=== PATIENT | male | born 1935 | race Caucasian/White ===

== ENCOUNTER → 2017-12-15 | Outpatient (CLI) | payer MEDICAID ==
[~2017-12-15] MED LIST: ASPI325T4; ATOR40TA PO; ATOR80TA; CATHETER FLUSH 10 ML SYR IV PRN; CLOP75TA; CYCL10TA9 PO; DOXY25TA43 PO; FLUT60LO2 TP; HYDR-700; LANS30CA; LISI-556; LSRT50T PO; LVT.05T; MTP25TSR; MTP25TSR PO; MULT-608; NAPR220C11 PO; OMEG1CAP51 PO; PRAS10TA6; PRD20T PO; REGADENOSON 0.4 MG/5 ML SYR (LEXISCAN) IV ONE; TRIA1CAP4
--- NOTE | 2017-12-15 16:10 | STRESS TEST ---
DATE OF SERVICE: 12/06/2017 LEXISCAN MYOVIEW STRESS TEST REPORT REFERRING PHYSICIAN: Edu Keene M.D. Baseline heart rate is 66. Baseline blood pressure is 161/72. Baseline EKG sinus rhythm with occasional APCs. SUMMARY: The patient was injected with 10.52 mCi of technetium-99 Myoview and the resting images were obtained. Then, the patient received 0.4 mg of Lexiscan followed by 30.7 mCi of technetium-99 Myoview. Throughout the test, there were no EKG changes. The resting and stress images were reviewed and compared in the short axis, horizontal long axis, and vertical long axis views. Review of the images showed diaphragmatic attenuation with decreased uptake at the mid to apical inferior wall, which appeared to be fixed, no significant ischemia was noted. SSS is 8, SDS 0, TID value 0.86. On the gated images, the left ventricle is small in size with good contractility. Calculated ejection fraction is 83%. CONCLUSION: 1. The patient tolerated Lexiscan well. 2. Diaphragmatic attenuation with fixed defect at the mid to apical inferior wall with no significant ischemia. 3. Small left ventricular size with good contractility. Calculated ejection fraction is 83%, inferior wall is jessica normally. Job ID: [id number] DocumentID: [id number] Dictated Date: 12/15/2017 11:28:21 Commercial Kitchen Service Technician Date: 12/15/2017 16:09:46 Dictated By: GHULAM PARKER MD
== END ==
LOC: CARD 07:05
PROVIDERS: ATTEND Internal Medicine Cardiovascular Disease
DX: I25.10 Atherosclerotic heart disease of native coronary artery without angina pectoris (principal); I10 Essential (primary) hypertension; E78.5 Hyperlipidemia, unspecified; E03.9 Hypothyroidism, unspecified; Z72.0 Tobacco use
CPT/HCPCS: 78452; 93017

== ENCOUNTER → 2018-08-06 | Outpatient (CLI) | payer MEDICAID ==
[~2018-08-06] MED LIST changes: -CATHETER FLUSH 10 ML SYR IV PRN; -REGADENOSON 0.4 MG/5 ML SYR (LEXISCAN) IV ONE
== END ==
LOC: WOUNDCARE 11:54
PROVIDERS: ATTEND Orthopaedic Surgery Hand Surgery
DX: L97.512 Non-pressure chronic ulcer of other part of right foot with fat layer exposed (principal); L97.312 Non-pressure chronic ulcer of right ankle with fat layer exposed; I73.9 Peripheral vascular disease, unspecified; I87.2 Venous insufficiency (chronic) (peripheral); G60.9 Hereditary and idiopathic neuropathy, unspecified
CPT/HCPCS: 11042; 97597

== ENCOUNTER → 2018-08-19 | Outpatient (CLI) | payer MEDICAID ==
[~2018-08-19] MED LIST changes: +ATOR20TA66 PO; +HEParin DRIP 25000 UNIT/500ML 500 ML IV ONE; +L GA1CAP2 PO; +LIDOCAINE 1% INJ 20 ML 20 ML VIAL ONE; +LIDOCAINE 2% 20 ML (XYLOCAINE) VIAL ONE; +MV-M1TAB20 PO; +OMEP40CA36 PO; +TAMS0.4C2 PO
== END ==
LOC: WOUNDCARE 13:22
PROVIDERS: ATTEND Surgery
DX: I70.234 Atherosclerosis of native arteries of right leg with ulceration of heel and midfoot (principal); L97.512 Non-pressure chronic ulcer of other part of right foot with fat layer exposed; I87.323 Chronic venous hypertension (idiopathic) with inflammation of bilateral lower extremity; G60.9 Hereditary and idiopathic neuropathy, unspecified
CPT/HCPCS: 99212

== ENCOUNTER 2018-08-21 08:45 | Inpatient (IN) | payer MEDICAID ==
[2018-08-21] VITALS (26 sets, daily range): BP systolic 75–181; BP diastolic 36–130
[~2018-08-21] VITALS: Ht 177.8 cm; Wt 67.4 kg
[~2018-08-21 08:45] MED LIST changes: -ATOR20TA66 PO; -HEParin DRIP 25000 UNIT/500ML 500 ML IV ONE; -L GA1CAP2 PO; -LIDOCAINE 1% INJ 20 ML 20 ML VIAL ONE; -LIDOCAINE 2% 20 ML (XYLOCAINE) VIAL ONE; -MV-M1TAB20 PO; -OMEP40CA36 PO; -TAMS0.4C2 PO
[2018-08-21] MEDS ORDERED: HEParin (CATH LAB) 2,000 ML IV ONE ×2 (08:48→15:59)
[2018-08-21] MEDS ORDERED: LIDOCAINE 1% INJ 20 ML 20 ML VIAL ONE (08:48)
[2018-08-21] MEDS ORDERED: NS IV 1000 ML 1,000 ML ONE (08:48)
[2018-08-21] MEDS ORDERED: NS IV 1000 ML 1,000 ML IV SCH ×2 (08:51→12:11)
[2018-08-21 09:25] LABS: HEMOGLOBIN 11.1 G/DL (13.3-17.7); MEAN PLATELET VOLUME 11.6 FL (7.4-10.4); RED BLOOD COUNT 3.89 10^6/uL (4.35-5.85); RED CELL DISTRIBUTION WIDTH 14.2 % (10.0-14.5); WHITE BLOOD COUNT 7.1 10^3/uL (4.3-11.0)
[2018-08-21 09:37] LABS: PROTHROMBIN TIME PATIENT 12.6 SEC (12.2-14.7)
--- NOTE | 2018-08-21 09:39 | Diagnostic Imaging Report ---
EXAM: CHEST 1 VIEW, AP/PA ONLY. INDICATION: HX OF TOBACCO, ABN CLARI. COMPARISON: Chest radiographs of 11/14/2010. FINDINGS: Cardiomegaly with normal central pulmonary vascularity. Hyperinflation. Small interstitial and airspace opacity in the left lung base. No pleural effusion or pneumothorax. No acute osseous findings. IMPRESSION: 1. COPD. 2. Cardiomegaly with normal central pulmonary vascularity. 3. Interstitial and airspace opacity in the left lung base is nonspecific and could represent atelectasis or infiltrate. Recommend followup to resolution. Dictated by: Dictated on workstation # [id number]
[2018-08-21 09:43] LABS: ALBUMIN 3.7 GM/DL (3.2-4.5); BILIRUBIN,TOTAL 0.4 MG/DL (0.1-1.0); CALCIUM 9.4 MG/DL (8.5-10.1); CREATININE SERUM 1.49 MG/DL (0.60-1.30); POTASSIUM 4.4 MMOL/L (3.6-5.0)
[2018-08-21] MEDS ORDERED: MV-M1TAB20 PO (09:53)
[2018-08-21] MEDS ORDERED: ATOR20TA66 PO (09:53)
[2018-08-21] MEDS ORDERED: TAMS0.4C2 PO (09:53)
[2018-08-21] MEDS ORDERED: OMEP40CA36 PO (09:53)
[2018-08-21] MEDS ORDERED: L GA1CAP2 PO (09:53)
[2018-08-21] MEDS ORDERED: MIDAZOLAM 5 MG/5 ML (VERSED) VIAL ONE (10:02)
[2018-08-21] MEDS ORDERED: fentaNYL INJECTION 100 MCG/2 ML AMP ONE ×2 (10:02→14:30)
[2018-08-21] MEDS ORDERED: HEParin 1000 UNIT/ML (10ML VIAL) FOR BOLUS ONE (10:02)
--- NOTE | 2018-08-21 10:05 | Cardiac Procedure Note-CS/ASA ---
Pre-Procedure Note Pre-Op Procedure Note H&P Reviewed The H&P was reviewed, patient examined and no changes noted. Date H&P Reviewed: Aug 21, 2018 Time H&P Reviewed: 10:05 Conscious Sedation Pre-Proced Time 10:05 ASA Score 3 For ASA 3 and 4: Consider anesthesia and medical clearance. Also, for patients with a history of failed moderate sedation consider anesthesia. Airway Lungs Heart ASA score ASA 1: a normal healthy patient ASA 2: a patient with a mild systemic disease (mid diabetes, controlled hypertension, obesity x ASA 3: a patient with a severe systemic disease that limits activity (angina , COPD, prior Myocardial infarction) ASA 4: a patient with an incapacitating disease that is a constant threat to life (CHF, renal failure) ASA 5: a moribund patient not expected to survive 24 hrs. (ruptured aneurysm) ASA 6: a declared brain patient whose organs are being harvested. For emergent operations, add the letter E after the classification Mallampati Classification Grade 3 Sedation Plan Analgesia, Amnesia, Plan communicated to team members, Discussed options with patient/fam, Discussed risks with patient/fam The patient is an appropriate candidate to undergo the planned procedure, sedation, and anesthesia. The patient immediately re-assessed prior to indication. GHULAM PARKER MD Aug 21, 2018 10:05
[2018-08-21] MEDS ORDERED: NITRO DRIP 25000 MCG/D5W 250 ML IV ONE (11:24)
[2018-08-21] MEDS ORDERED: CLOPIDOGREL 300 MG (PLAVIX) TABLET PO ONE (12:10)
[2018-08-21] MEDS ORDERED: ASPIRIN 325 MG (5 GR) TABLET ONE (12:10)
[2018-08-21] MEDS ORDERED: PATIENT MAY USE OWN MEDS, ALL PO SCH ×2 (12:15→17:30)
--- NOTE | 2018-08-21 12:22 | Peripheral Report ---
Peripheral Report Physician (s)/Wire Preparation Worker (s) Physician GHULAM PARKER MD Pre-Procedure Diagnosis Pre-Procedure Diagnosis: nonhealing foot ulcer Post-Procedure Note Procedure Start Date: Aug 21, 2018 Name of Procedure: bilateral lower extremity runoff Third order Additional imaging at the level of the tibioperoneal trunk LENS POLISHER HAND to the right posterior tibial artery LENS POLISHER HAND to the right peroneal artery Stent deployment to the right SFA Findings/Procedure Note PROCEDURE NOTE: After explaining the procedure to the patient, all pros and cons were explained , all questions were answered. The patient signed the consent and then he was placed on the cardiac catheterization laboratory. The patient was placed on the cardiac catheterization laboratory. Groin was prepped SL fashion local anesthesia was used. Sheath placed in the left femoral artery. Rim catheter was used for injection to evaluate the aortic bifurcation, long stork wire was advanced then a straight catheter was advanced to the right common femoral artery and runoff to the right lower except he was done then it was advanced to the popliteal artery and angiogram was done, at that point patient was given a total of 6000 units of heparin and then the sheath was exchanged into 55 cm 6 Iraqi sheath, I readvanced the straight catheter to the tibioperoneal trunk, angiogram showed subtotal occlusion of the posterior tibial and peroneal artery and total occlusion of the anterior tibial artery. Patient has a lesion on his heel. I proceeded with balloon angioplasty using 3 x 40 balloon over 0.018 command wire multiple inflations were done then the wire was redirected into the peroneal artery and advanced in the peroneal artery and balloon angioplasty with the same balloon was done, angiogram showed good results, and advancement of the straight catheter, there was significant gradient across the SFA with multiple lesion and heavy calcification. I used 6 time 100 lm with multiple inflation, angiographic showed improvement multiple segment, there was heavy calcification recoiling and dissection of the mid SFA, I decided to proceed with stenting using SUPERA 6 x150, postdilated with a 6.0 balloon with excellent results. At the end of the procedure the sheath was exchanged again into short 6 Iraqi sheath and runoff to the left lower extremity was done. FINDINGS: Right lower extremity: heavily calcified SFA with multiple segment of severe stenosis successful balloon angioplasty and stent deployment using SUPERA 6 x 150 with excellent results, subtotal occlusion of the posterior tibial artery with balloon angioplasty using 3 x 40 balloon with excellent result, the same balloon was used for the peroneal artery that was having severe ostial stenosis with significant improvement, some recoiling was noted. Total occlusion of the anterior tibial artery that was reconstructed by collateral. I did not intervene on that artery. Left lower extremity: heavily calcified artery with moderate stenosis at the midportion down to the trifurcation, there was brisk flow, I did not want to repeat the angiogram at that point to limit exposure to contrast CONCLUSIONS: 1. Severe multiple segment stenosis in the right SFA with heavy calcification balloon angioplasty then deployment of SUPERA 6 x 150 with excellent results 2. Subtotal occlusion of the ostial of the right posterior tibial artery on the right with successful balloon angioplasty using 3 x 40 balloon 3. Severe stenosis at the ostial of the right peroneal artery with successful balloon angioplasty using 3 x 40 balloon 4. Total occlusion of the anterior tibial artery that was not intervened on 5. Calcified left SFA with moderate stenosis at multiple segment DISCUSSION AND RECOMMENDATIONS: I will continue maximizing medical therapy at this time Anesthesia Type: Conscious Sedation Estimated blood loss (mL): 35 ml Contrast Amount: 82 ml Total Radiation Dose: 137 mGy Post-Procedure Diagnosis Post-operative diagnosis: Nonhealing foot ulcer Peripheral arterial disease Coronary artery disease Hypertension Hyperlipidemia GHULAM PARKER MD Aug 21, 2018 12:22
--- NOTE | 2018-08-21 12:38 | NUR ---
Pt to floor, report received from pathology laboratory technologist nurses. Orders from pathology laboratory technologist RN's Gabo, to pull sheath in 1 hour. Pt sleeping and showing signs of sleep apnea with oxygen sats 89%. 2L oxygen applied via nasal cannula. Sats 98%
[2018-08-21] MEDS ORDERED: ATROPINE INJ 0.4 MG/ML SDV ONE (13:22)
[2018-08-21] MEDS ORDERED: DOPamine DRIP 250 ML IV ONE (15:05)
[2018-08-21] MEDS ORDERED: NS IV 500 ML 500 ML ONE (15:11)
[2018-08-21] MEDS ORDERED: NS 1000 ML IV BAG IV ONE (15:35)
[2018-08-21] MEDS ORDERED: ATROPINE INJECTION 1 MG/10 ML SYR (ABBOTT) INJ ONE (15:35)
[2018-08-21] MEDS: NS IV 1000 ML 1,000 ML IV SCH (16:08)
--- NOTE | 2018-08-21 16:19 | Diagnostic Imaging Report ---
EXAM: Ultrasound of the left lower extremity. DATE: August 21, 2018. INDICATION: 83-year-old male, evaluation for bleeding status post catheterization. COMPARISON: None. FINDINGS: There is an ill-defined hypoechoic masslike area at the area of interest in the left inguinal region which is nonspecific but may relate to hematoma. Limited images were provided. Waveforms within the vessels were not provided. There does not appear to be specific evaluation for pseudoaneurysm. IMPRESSION: 1. Ill-defined hypoechoic masslike area at the area of clinical concern which may relate to hematoma. Clinical correlation is recommended. 2. Limited images were provided. No waveforms within the vessels or dedicated assessment for pseudoaneurysm. Dictated by: Dictated on workstation # [id number]
--- NOTE | 2018-08-21 16:38 | NUR ---
TIME LINE NOTE: 1407-groin soft and no hematoma present 1408-sheath pulled and pressure held. Pt vitals stable and within normal limits 1415-This RN noticed that pt abdomen above sheath site on left side, feeling hard and pt complains of pain, lab systems analyst called. Pressure maintained by this RN 1419-Angelica catheterization laboratory technician, to the floor and stated he was not sure if that was a hematoma or pt's hernia, informed this RN to call Dr. Chavira. Pressure maintained by this RN. Pt leg blueish in color to verify pressure is adequate. 1430-Dr. Chavira in room, stated that he did not feel this was a bleed at this time, verbal order for this RN to give 25mg fentanyl at this time. Pressure Maintained by this RN 1435-Fentenyl 25mg given at this time. Pt vitals still stable and within normal limits, pressure maintained by this RN 1453-Called lab systems analyst to see if this RN could order an Ultrasound as pt bp droppede from baseline but still within normal limits. Orders for ultrasound obtained. Pressure maintained by this RN. 1502-Dr. Chavira to floor to check pt, pt's BP dropping at this time, 1 Liter NS started wide open at this time. Dr. Chavira holding pressure with this RN simultaneously. 1510-Dopamine 5mcg started at this time per Dr. Chavira order. kodak Dominguez, here to hold pressure for this RN. Dr. Chavira verbal order to obtain 2 units unmatched blood to be given now wide open. 1518-1st unit of O+ blood hung at this time wide open. RITA Dominguez, maintaining pressure. 1525-Dr. chavira holding pressure with RITA Dominguez, simultaneously. 1527-Dopamine off per Dr. Chavira as pressure was increasing to normal limits 1530-Dr. chavira released pressure, RITA dominguez, still holding pressure 1531-.3 atropine given iv for pt vagled with a HR in the 30's. HR almost immediately increased to Normal limits in the 90's. 1532-1st unit of blood done. 1533- 2nd unit of O+ blood hung at this time. Vitals stabilizing. 1545-Vitals normalizing, pt states he feels better, fluids turned down to 200 ml/hr at this time. 1547-Yadira lab systems analyst rn, here to relieve angleica and hold pressure. Yadira felt that the pt hematoma was harder than when she origionally checked upon entering room. Dr. Chavira felt at this time and felt it was worse as well. BP decreasing again at this time. 1548-US in room and confirmed hematoma. Verbal orders for 2 more units of blood to be hung. Lab called at this time. Dr. chavira stated that they would take pt back to lab systems analyst to try to stop the bleed. Fluids turned back to wide open 1550-Dr. Chavira holding pressure again at this time simultaneously with RITA May. 1555-2nd unit of blood done. Yadira maintaining pressure 1605- to lab systems analyst with Yadira on bed to maintain pressure. Fluids still running wide open. This RN, Dr. Chavira and Eunice, lab systems analyst with pt during transfer as well. 1607-arrived to lab systems analyst, pt transferred to lab systems analyst table with Yadira maintaining pressure throughout transfer. 1610-2nd bag of fluids hung running wide open. 1615-3rd unit of A+ blood hung at this time. 1620-This RN reported off to RITA May and returned to ICU
--- NOTE | 2018-08-21 17:30 | Peripheral Report ---
Peripheral Report Physician (s)/Collection Analyst (s) Physician GHULAM PARKER MD Pre-Procedure Diagnosis Pre-Procedure Diagnosis: nonhealing foot ulcer Post-Procedure Note Procedure Start Date: Aug 21, 2018 Name of Procedure: balloon angioplasty to the left iliac/common femoral Findings/Procedure Note PROCEDURE NOTE: 83 years old gentleman underwent complex intervention on the right lower extremity using left groin access. Sheath insertion was relatively high, upon pulling the sheath on the floor and holding manual pressure patient developed large hematoma and became hypotensive. Received 4 units of blood, manual pressure applied for over an hour and continue to worsen, bedside ultrasound was done which showed large hematoma. I decided to take him back to the catheter lab with right groin access and try to see the femoral artery from inside. Patient was placed on the cardiac catheterization laboratory, right groin was prepped in a sterile fashion, local anesthesia applied and 7 Irish sheath was placed in the right femoral artery using the rim catheter I did angiogram to the left iliac and femoral artery and advanced Glidewire due to the difficulty in advancing stork wire, over the glide wire I was able to advance a straight catheter to the SFA then exchanged the Glidewire into a stork wire then try to put a longer sheath without success subsequently I proceeded with balloon dilatation at the site of the previous insertion using 8x40 inflated for 5 minutes then released for 2 minutes then inflated again for another 5 minutes, placed a straight catheter back in the iliac artery and did angiogram did not show any extravasation of contrast. At that point I left the sheath for 10 minutes and checked the pressure and reintroduce the straight catheter and did angiogram again showing no extravasation of contrast, blood pressure continued to be stable. Then the wire was removed and the straight catheter was removed and I left the 7 Irish sheath for another 10 minutes in the groin for a total of 30 minutes with continuous monitoring of the arterial line without any change in blood pressure or size of the hematoma on the left groin subsequently I decided to remove the 7 Irish sheath and deployed Mynx device. FINDINGS: 1. Successful balloon angioplasty to the left iliac/common femoral artery and resolution of the retroperitoneal bleed CONCLUSIONS: I will continue to monitor in the intensive care unit. Monitor H&H Anesthesia Type: Conscious Sedation Estimated blood loss (mL): 10 ml Contrast Amount: 21 ml Total Radiation Dose: 269 mGy Post-Procedure Diagnosis Post-operative diagnosis: Peripheral arterial disease Retroperitoneal bleed GHULAM PARKER MD Aug 21, 2018 17:30
--- NOTE | 2018-08-21 18:00 | NUR ---
Pt returned from lab assistant. Right groin site soft with dressing dry and intact. L groin site not bleeding at this time. Previous hematoma much smaller with only a small area of the left abdomen remaining hard. Will continue to monitor pt closely.
--- NOTE | 2018-08-21 19:25 | NUR ---
Report given to RITA Mensah. Makenna, at bedside with this RN to check groins. Pt remains the same as when arriving to the floor at 1800. No change in pt cath sites and pt shows no new signs of bleeding. Vitals stable and within normal limits.
[2018-08-21 20:11] LABS: BASOPHILS % (AUTO) 0 % (0-10); EOSINOPHILS % (AUTO) 0 % (0-10); HEMATOCRIT 41 % (40-54); HEMOGLOBIN 13.5 G/DL (13.3-17.7); LYMPHOCYTES # (AUTO) 0.6 X 10^3 (1.0-4.0); LYMPHOCYTES % (AUTO) 6 % (12-44); MEAN CORPUSCULAR HEMOGLOBIN 30 PG (25-34); MEAN CORPUSCULAR HGB CONC 33 G/DL (32-36); MEAN CORPUSCULAR VOLUME 89 FL (80-99); MEAN PLATELET VOLUME 11.7 FL (7.4-10.4); MONOCYTES # (AUTO) 1.1 X 10^3 (0.0-1.0); MONOCYTES % (AUTO) 11 % (0-12); NEUTROPHILS # (AUTO) 8.6 X 10^3 (1.8-7.8); NEUTROPHILS % (AUTO) 83 % (42-75); PLATELET COUNT 151 10^3/uL (130-400); RED BLOOD COUNT 4.57 10^6/uL (4.35-5.85); RED CELL DISTRIBUTION WIDTH 14.8 % (10.0-14.5); WHITE BLOOD COUNT 10.4 10^3/uL (4.3-11.0)
[2018-08-21 20:39] LABS: BAND NEUTROPHILS 16 %; BASOPHILS % (MANUAL) 1 %; EOSINOPHILS % (MANUAL) 1 %; LYMPHOCYTES % (MANUAL) 4 %; MONOCYTES % (MANUAL) 6 %; NEUTROPHILS % (MANUAL) 72 %; RBC MORPH NORMAL
--- NOTE | 2018-08-21 20:54 | NUR ---
This RN called Dr. Chavira with lab results as requested. Hgb 13.5, Hct 41, Platelets 151. Orders received.
[2018-08-21] MEDS ORDERED: TEMAZEPAM 7.5 MG CAP (RESTORIL) PO ONE ×2 (21:00→22:00)
[2018-08-22] VITALS (22 sets, daily range): BP systolic 114–160; BP diastolic 53–86
[2018-08-22 03:50] LABS: BASOPHILS % (AUTO) 0 % (0-10); EOSINOPHILS % (AUTO) 0 % (0-10); HEMATOCRIT 36 % (40-54); HEMOGLOBIN 11.6 G/DL (13.3-17.7); LYMPHOCYTES # (AUTO) 0.4 X 10^3 (1.0-4.0); LYMPHOCYTES % (AUTO) 5 % (12-44); MEAN CORPUSCULAR HEMOGLOBIN 29 PG (25-34); MEAN CORPUSCULAR HGB CONC 33 G/DL (32-36); MEAN CORPUSCULAR VOLUME 88 FL (80-99); MEAN PLATELET VOLUME 11.7 FL (7.4-10.4); MONOCYTES # (AUTO) 1.1 X 10^3 (0.0-1.0); MONOCYTES % (AUTO) 13 % (0-12); NEUTROPHILS # (AUTO) 6.8 X 10^3 (1.8-7.8); NEUTROPHILS % (AUTO) 81 % (42-75); PLATELET COUNT 157 10^3/uL (130-400); RED BLOOD COUNT 4.04 10^6/uL (4.35-5.85); RED CELL DISTRIBUTION WIDTH 14.9 % (10.0-14.5); WHITE BLOOD COUNT 8.3 10^3/uL (4.3-11.0)
[2018-08-22 04:08] LABS: BUN/CREATININE RATIO 27; CALCIUM 8.2 MG/DL (8.5-10.1); CARBON DIOXIDE 18 MMOL/L (21-32); CHLORIDE 114 MMOL/L (98-107); CREATININE SERUM 1.08 MG/DL (0.60-1.30); GFR ESTIMATED > 60; GLUCOSE 73 MG/DL (70-105); MAGNESIUM 1.7 MG/DL (1.8-2.4); PHOSPHORUS 3.9 MG/DL (2.3-4.7); POTASSIUM 4.6 MMOL/L (3.6-5.0); SODIUM 143 MMOL/L (135-145)
[2018-08-22] MEDS: NS IV 1000 ML 1,000 ML IV SCH ×2 (04:34→13:48)
[2018-08-22] MEDS: POTASSIUM CL 10MEQ/50ML IVPB 50 ML IV SCH (05:35)
[2018-08-22] MEDS: KCL 20 MEQ TAB (K-DUR) PO SCH (05:36)
[2018-08-22] MEDS ORDERED: MAGNESIUM 1 GM/100 ML IVPB 200 ML IV ONE (05:48)
[2018-08-22] MEDS: MAGNESIUM 1 GM/100 ML IVPB 100 ML IV SCH ×3 (05:48→09:10)
[2018-08-22] MEDS: LEVOTHYROXINE 50 MCG (LEVOTHROID) TAB PO SCH (06:02)
[2018-08-22] MEDS: PANTOPRAZOLE 40 MG (PROTONIX) TAB PO SCH (06:02)
[2018-08-22] MEDS ORDERED: NON-FORMULARY MEDICATION 1 EA EA (Omeprazole 40 MG) PO SCH (09:00)
[2018-08-22] MEDS: ATORVASTATIN 20 MG (LIPITOR) TABLET PO SCH (09:24)
[2018-08-22] MEDS: TAMSULOSIN 0.4 MG (FLOMAX) CAP PO SCH (09:24)
[2018-08-22] MEDS: CLOPIDOGREL 75 MG (PLAVIX) TABLET PO SCH (09:24)
[2018-08-22] MEDS: ASPIRIN E.C. 81 MG (ECOTRIN) TAB PO SCH (09:24)
[2018-08-22] MEDS: LOSARTAN 50 MG (COZAAR) TAB PO SCH (09:24)
--- NOTE | 2018-08-22 09:28 | Cardiology History & Physical ---
HPI-Cardiology Cardiology Consultation Date of Consultation 08/22/18 Date of Admission Time Seen by Provider: 09:24 Indication: peripheral arterial disease HPI father Anirudh is an 83 years old gentleman with history of coronary artery disease, peripheral arterial disease, had claudication and nonhealing ulcer on his right heel, had an abnormal CLARI and scheduled for peripheral angiogram and intervention, underwent complex intervention yesterday, postoperatively after removing the sheath patient developed large hematoma and was in hypotensive shock secondary to hypovolemia responded to IV fluids and blood transfusion, continue to bleed despite the manual pressure on his groin. I proceeded with taking him to the catheter lab and an sealing the artery by balloon with good results. This morning he is feeling well, groin is healing well. Has good pulse in both legs. 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) Other PMHx discussed below Social History Patient Social History Marrital Status: single Employed/Student: retired Alcohol Use: Denies Use Recreational Drug Use: No Recent Foreign Travel: No Contact w/other who traveled: No Recent Infectious Disease Expo: No Family Hx Other noncontributory ROS-Cardiology Review of Systems General: No Chills, No Night Sweats; Fatigue, Malaise; No Appetite HEENT: No Head Aches, No Visual Changes, No Eye Pain, No Ear Pain, No Dysphasia , No Sinus Congestion, No Post Nasal Drip, No Sore Throat Pulmonary: Dyspnea; No Cough, No Pleuritic Chest Pain Cardiovascular: No: Chest Pain, Palpitations, Orthopnea, Paroxysmal Noc. Dyspnea, Edema, Lt Headedness Gastrointestinal: No: Nausea, Vomiting, Abdominal Pain, Diarrhea, Constipation , Melena, Hematochezia Genitourinary: No Dysuria, No Frequency, No Incontinence, No Hematuria, No Retention Musculoskeletal: No: neck pain, shoulder pain, arm pain, back pain, hand pain, leg pain, foot pain Neurological: No: Weakness, Numbness, Incoordination, Change in speech, Confusion, Seizures Home Medications & Allergies Allergies: Coded Allergies: No Known Drug Allergies (Unverified , 1/18/10) Home Medication List Reviewed: Yes Exam-Cardiology Vital Signs Vital Signs Date Time Temp Pulse Resp B/P (MAP) Pulse Ox O2 Delivery O2 Flow Rate FiO2 08/22/18 07:00 84 08/22/18 06:00 13 160/77 (104) 97 Nasal Cannula 3.00 08/22/18 00:00 98.6 Exam General Appearance: Alert, Oriented X3, Cooperative, No Acute Distress HEENT: Atraumatic, PERRLA Respiratory: Clear to Auscultation, Normal Air Movement Cardiovascular: Regular Rate, Normal S1, Normal S2, No Murmurs Abdominal: Normal Bowel Sounds, Soft, No Tenderness, No Hepatosplenomegaly, No Masses Extremities: No Clubbing, No Cyanosis, No Edema, No Tenderness/Swelling Skin: No Rashes, No Breakdown, No Significant Lesion Neuro: Normal Gait, Normal Speech, Strength at 5/5 X4 Ext, Normal Tone, Sensation Intact Psych/Mental Status: Mental Status NL, Mood NL Results Labs Labs Laboratory Tests 08/21/18 19:57: White Blood Count 10.4, Red Blood Count 4.57, Hemoglobin 13.5#, Hematocrit 41, Mean Corpuscular Volume 89, Mean Corpuscular Hemoglobin 30, Mean Corpuscular Hemoglobin Concent 33, Red Cell Distribution Width 14.8H, Platelet Count 151, Mean Platelet Volume 11.7H, Neutrophils (%) (Auto) 83H, Lymphocytes (%) (Auto) 6L, Monocytes (%) (Auto) 11, Eosinophils (%) (Auto) 0, Basophils (%) (Auto) 0, Neutrophils # (Auto) 8.6H, Lymphocytes # (Auto) 0.6L, Monocytes # (Auto) 1.1H, Eosinophils # (Auto) 0.0, Basophils # (Auto) 0.0, Neutrophils % (Manual) 72, Lymphocytes % (Manual) 4, Monocytes % (Manual) 6, Eosinophils % (Manual) 1, Basophils % (Manual) 1, Band Neutrophils 16, Blood Morphology Comment NORMAL 08/22/18 03:16: White Blood Count 8.3, Red Blood Count 4.04L, Hemoglobin 11.6L, Hematocrit 36L, Mean Corpuscular Volume 88, Mean Corpuscular Hemoglobin 29, Mean Corpuscular Hemoglobin Concent 33, Red Cell Distribution Width 14.9H, Platelet Count 157, Mean Platelet Volume 11.7H, Neutrophils (%) (Auto) 81H, Lymphocytes (%) (Auto) 5L, Monocytes (%) (Auto) 13H, Eosinophils (%) (Auto) 0, Basophils (%) (Auto) 0, Neutrophils # (Auto) 6.8, Lymphocytes # (Auto) 0.4L, Monocytes # (Auto) 1.1H, Eosinophils # (Auto) 0.0, Basophils # (Auto) 0.0, Sodium Level 143, Potassium Level 4.6, Chloride Level 114H, Carbon Dioxide Level 18L, Anion Gap 11, Blood Urea Nitrogen 29H, Creatinine 1.08, Estimat Glomerular Filtration Rate > 60, BUN /Creatinine Ratio 27, Glucose Level 73, Calcium Level 8.2L, Phosphorus Level 3.9 , Magnesium Level 1.7L A/P-Cardiology Admission Diagnosis peripheral arterial disease Nonhealing foot ulcer Coronary artery disease Hypotensive shock Admission Status: Inpatient Order (span 2 midnights) Reason for Inpatient Admission: hypotensive shock Assessment/Plan Hypotensive shock secondary to large retroperitoneal bleed and groin bleed, improved with manual pressure and balloon angioplasty and sealing the artery through balloon intervention Peripheral arterial disease, claudication, lower extremity pain, nonhealing ulcer on the right heel, abnormal CLARI, status post balloon angioplasty to the posterior tibial artery and peroneal artery on the right, balloon angioplasty then stent deployment to the right SFA. Large bleed from the left groin successful balloon angioplasty and sealing of the bleed through balloon in the left iliac and common femoral artery. Coronary artery disease, history of cardiac catheterization with multiple stents in 2009, using 2 stents to the right coronary artery 3.0x12 mm to the proximal right coronary artery Promus stent, 2.5x28 mm Promus stent to the distal right coronary artery. 2.5x12 mm Promus stent to the LAD. Currently asymptomatic, continue to monitor. Most recent stress test November 2017 revealed no ischemia or infarct. continue to monitor Hypertension, restarted home medication, monitor blood pressure Hyperlipidemia. continue to monitor lipids Chronic renal insufficiency, improved with aggressive hydration received a total of 100 mL of contrast. Pulmonary hypertension,improved, last echocardiogram was done in December 2017 showing pulmonary artery pressure of 50 mmHg. Moderate bilateral carotid stenosis, last ultrasound was done in March 2018. Venous insufficiency- Patient had small saphenous vein chronic insufficiency with reflux time more than 4.9 seconds, he has chronic venous stasis changes on the right lower extremity. Now has nonhealing wound to RLE. Management as discussed above. History of tobaccoism, has been abstinent since 2009. Encouraged to continue with smoking cessation. Hypothyroidism, maintained on Synthroid 50 mcg daily, managed by Dr. Keene. Patient is having difficulty remembering, he lives by himself, may benefit from evaluation for assisted living GHULAM PARKER MD Aug 22, 2018 09:28
--- NOTE | 2018-08-22 09:29 | Cardiac Procedure Note-CS/ASA ---
Pre-Procedure Note Pre-Op Procedure Note H&P Reviewed The H&P was reviewed, patient examined and no changes noted. Date H&P Reviewed: Aug 21, 2018 Time H&P Reviewed: 15:00 Conscious Sedation Pre-Proced Time 15:00 ASA Score 3 For ASA 3 and 4: Consider anesthesia and medical clearance. Also, for patients with a history of failed moderate sedation consider anesthesia. Airway Lungs Heart ASA score ASA 1: a normal healthy patient ASA 2: a patient with a mild systemic disease (mid diabetes, controlled hypertension, obesity x ASA 3: a patient with a severe systemic disease that limits activity (angina , COPD, prior Myocardial infarction) ASA 4: a patient with an incapacitating disease that is a constant threat to life (CHF, renal failure) ASA 5: a moribund patient not expected to survive 24 hrs. (ruptured aneurysm) ASA 6: a declared brain patient whose organs are being harvested. For emergent operations, add the letter E after the classification Mallampati Classification Grade 3 Sedation Plan Analgesia, Amnesia, Plan communicated to team members, Discussed options with patient/fam, Discussed risks with patient/fam The patient is an appropriate candidate to undergo the planned procedure, sedation, and anesthesia. The patient immediately re-assessed prior to indication. GHULAM PARKER MD Aug 22, 2018 09:29
--- OUTSIDE RECORDS SUMMARY | 2018-08-22 11:25 | XMS REPORT | Continuity of Care Document ---
Author Author [facility] Organization [facility] Address Unknown Phone Unavailable Allergies Active Description Code Type Severity Reaction Onset Reported/Identified Relationship to Patient Clinical Status Yes No Known Drug Allergies [id number] Drug Allergy Mild N/A 09/04/2009 Medications There is no data. Problems Date Dx Coded Attending Type Code Diagnosis Diagnosed By 02/08/2015 Ot 414.01 02/08/2015 Ot 786.50 02/08/2015 GHULAM PARKER MD Ot 272.4 02/08/2015 GHULAM PARKER MD Ot 397.0 02/08/2015 GHULAM PARKER MD Ot 401.9 02/08/2015 GHULAM PARKER MD Ot 414.00 02/08/2015 GHULAM PARKER MD Ot 424.0 02/24/2015 GHULAM PARKER MD Ot 244.9 02/24/2015 GHULAM PARKER MD Ot 272.4 02/24/2015 GHULAM PARKER MD Ot 401.9 02/24/2015 GHULAM PARKER MD Ot 414.00 04/08/2016 GHULAM PARKER MD Ot E03.9 HYPOTHYROIDISM, UNSPECIFIED 04/08/2016 GHULAM PARKER MD Ot E78.2 MIXED HYPERLIPIDEMIA 04/08/2016 GHULAM PARKER MD Ot I10 ESSENTIAL (PRIMARY) HYPERTENSION 04/08/2016 GHULAM PARKER MD Ot I25.10 ATHSCL HEART DISEASE OF [place] CORONARY 04/08/2016 GHULAM PARKER MD Ot R06.02 SHORTNESS OF BREATH 04/08/2016 GHULAM PARKER MD Ot E03.9 HYPOTHYROIDISM, UNSPECIFIED 04/08/2016 GHULAM PARKER MD Ot E78.2 MIXED HYPERLIPIDEMIA 04/08/2016 GHULAM PARKER MD Ot I10 ESSENTIAL (PRIMARY) HYPERTENSION 04/08/2016 GHULAM PARKER MD Ot I25.10 ATHSCL HEART DISEASE OF [place] CORONARY 04/08/2016 GHULAM PARKER MD Ot R06.02 SHORTNESS OF BREATH 05/02/2016 GHULAM PARKER MD Ot E03.9 HYPOTHYROIDISM, UNSPECIFIED 05/02/2016 GHULAM PARKER MD Ot E78.2 MIXED HYPERLIPIDEMIA 05/02/2016 GHULAM PARKER MD J Ot I10 ESSENTIAL (PRIMARY) HYPERTENSION 05/02/2016 GHULAM PARKER MD Ot I25.10 ATHSCL HEART DISEASE OF [place] CORONARY 05/02/2016 GHULAM PARKER MD Ot R06.02 SHORTNESS OF BREATH 12/11/2017 GHULAM PARKER MD Ot 272.4 HYPERLIPIDEMIA NEC/NOS 12/11/2017 GHULAM PARKER MD Ot 397.0 TRICUSPID VALVE DISEASE 12/11/2017 GHULAM PARKER MD Ot 401.9 HYPERTENSION NOS 12/11/2017 GHULAM PARKER MD Ot 414.00 CORON ATHEROSCLER NOS TYPE VESSEL, NATIV 12/11/2017 GHULAM PARKER MD Ot 424.0 MITRAL VALVE DISORDER 12/11/2017 GHULAM PARKER MD Ot 244.9 HYPOTHYROIDISM NOS 12/11/2017 GHULAM PARKER MD Ot 272.4 HYPERLIPIDEMIA NEC/NOS 12/11/2017 GHULAM PARKER MD Ot 401.9 HYPERTENSION NOS 12/11/2017 GHULAM PARKER MD J Ot 414.00 CORON ATHEROSCLER NOS TYPE VESSEL, NATIV 12/11/2017 GHULAM PARKER MD Ot E03.9 HYPOTHYROIDISM, UNSPECIFIED 12/11/2017 GHULAM PARKER MD Ot E78.2 MIXED HYPERLIPIDEMIA 12/11/2017 GHULAM PARKER MD Ot I10 ESSENTIAL (PRIMARY) HYPERTENSION 12/11/2017 GHULAM PARKER MD Ot I25.10 ATHSCL HEART DISEASE OF [place] CORONARY 12/11/2017 GHULAM PARKER MD Ot R06.02 SHORTNESS OF BREATH 12/15/2017 GHULAM PARKER MD Ot 272.4 HYPERLIPIDEMIA NEC/NOS 12/15/2017 GHULAM PARKER MD J Ot 397.0 TRICUSPID VALVE DISEASE 12/15/2017 GHULAM PARKER MD J Ot 401.9 HYPERTENSION NOS 12/15/2017 GHULAM PARKER MD J Ot 414.00 CORON ATHEROSCLER NOS TYPE VESSEL, NATIV 12/15/2017 GHULAM PARKER MD Ot 424.0 MITRAL VALVE DISORDER 12/15/2017 GHULAM PARKER MD Ot 244.9 HYPOTHYROIDISM NOS 12/15/2017 GHULAM PARKER MD Ot 272.4 HYPERLIPIDEMIA NEC/NOS 12/15/2017 GHULAM PARKER MD Ot 401.9 HYPERTENSION NOS 12/15/2017 GHULAM PARKER MD Ot 414.00 CORON ATHEROSCLER NOS TYPE VESSEL, NATIV 12/15/2017 GHULAM PARKER MD Ot E03.9 HYPOTHYROIDISM, UNSPECIFIED 12/15/2017 GHULAM PARKER MD Ot E78.2 MIXED HYPERLIPIDEMIA 12/15/2017 HGULAM PARKER MD Ot I10 ESSENTIAL (PRIMARY) HYPERTENSION 12/15/2017 GHULAM PARKER MD Ot I25.10 ATHSCL HEART DISEASE OF [place] CORONARY 12/15/2017 GHULAM PARKER MD Ot R06.02 SHORTNESS OF BREATH 12/15/2017 GHULAM PARKER MD Ot E03.9 HYPOTHYROIDISM, UNSPECIFIED 12/15/2017 GHULAM PARKER MD Ot E78.5 HYPERLIPIDEMIA, UNSPECIFIED 12/15/2017 GHULAM PARKER MD Ot I10 ESSENTIAL (PRIMARY) HYPERTENSION 12/15/2017 GHULAM PARKER MD Ot I25.10 ATHSCL HEART DISEASE OF [place] CORONARY 12/15/2017 GHULAM PARKER MD Ot Z72.0 TOBACCO USE 01/01/2018 GHULAM PARKER MD Ot E03.9 HYPOTHYROIDISM, UNSPECIFIED 01/01/2018 GHULAM PARKER MD Ot E78.5 HYPERLIPIDEMIA, UNSPECIFIED 01/01/2018 GHULAM PARKER MD Ot I10 ESSENTIAL (PRIMARY) HYPERTENSION 01/01/2018 GHULAM PARKER MD Ot I25.10 ATHSCL HEART DISEASE OF [place] CORONARY 01/01/2018 GHULAM PARKER MD Ot Z72.0 TOBACCO USE 01/05/2018 GHULAM PARKER MD Ot E03.9 HYPOTHYROIDISM, UNSPECIFIED 01/05/2018 GHULAM PARKER MD Ot E78.5 HYPERLIPIDEMIA, UNSPECIFIED 01/05/2018 GHULAM PARKER MD J Ot I10 ESSENTIAL (PRIMARY) HYPERTENSION 01/05/2018 GHULAM PARKER MD Ot I25.10 ATHSCL HEART DISEASE OF [place] CORONARY 01/05/2018 GHULAM PARKER MD Ot I34.0 NONRHEUMATIC MITRAL (VALVE) INSUFFICIENC 01/08/2018 GHULAM PARKER MD Ot E03.9 HYPOTHYROIDISM, UNSPECIFIED 01/08/2018 GHULAM PARKER MD Ot E78.5 HYPERLIPIDEMIA, UNSPECIFIED 01/08/2018 GHULAM PARKER MD Ot I10 ESSENTIAL (PRIMARY) HYPERTENSION 01/08/2018 GHULAM PARKER MD Ot I25.10 ATHSCL HEART DISEASE OF [place] CORONARY 01/08/2018 GHULAM PARKER MD Ot I34.0 NONRHEUMATIC MITRAL (VALVE) INSUFFICIENC 01/16/2018 GHULAM PARKER MD Ot E03.9 HYPOTHYROIDISM, UNSPECIFIED 01/16/2018 GHULAM PARKER MD Ot E78.5 HYPERLIPIDEMIA, UNSPECIFIED 01/16/2018 GHULAM PARKER MD Ot I10 ESSENTIAL (PRIMARY) HYPERTENSION 01/16/2018 GHULAM PARKER MD Ot I25.10 ATHSCL HEART DISEASE OF [place] CORONARY 01/16/2018 GHULAM PARKER MD Ot I34.0 NONRHEUMATIC MITRAL (VALVE) INSUFFICIENC 08/12/2018 RADHA WRIGHT MD Ot G60.9 HEREDITARY AND IDIOPATHIC NEUROPATHY, UN 08/12/2018 RADHA WRIGHT MD Ot I73.9 PERIPHERAL VASCULAR DISEASE, UNSPECIFIED 08/12/2018 RADHA WRIGHT MD Ot I87.2 VENOUS INSUFFICIENCY (CHRONIC) (PERIPHER 08/12/2018 RADHA WRIGHT MD Ot 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 08/12/2018 RADHA WRIGHT MD Ot L97.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 08/14/2018 RADHA WRIGHT MD Ot G60.9 HEREDITARY AND IDIOPATHIC NEUROPATHY, UN 08/14/2018 RADHA WRIGHT MD Ot I73.9 PERIPHERAL VASCULAR DISEASE, UNSPECIFIED 08/14/2018 RADHA WRIGHT MD Ot I87.2 VENOUS INSUFFICIENCY (CHRONIC) (PERIPHER 08/14/2018 RADHA WRIGHT MD Ot 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 08/14/2018 RADHA WRIGHT MD Ot L97.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 08/21/2018 ROSITA NIELSON, KARLY Jerez Ot G60.9 HEREDITARY AND IDIOPATHIC NEUROPATHY, UN 08/21/2018 KARLY BECKER MD, Ot I70.234 ATHSCL [place] ART OF RIGHT LEG W ULCER O 08/21/2018 KARLY BEKCER MD, Ot 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 Results Test Result Range Automated blood complete blood count (hemogram) panel - 08/21/18 09:10 Blood leukocytes automated count (number/volume) 7.1 10*3/uL 4.3-11.0 Blood erythrocytes automated count (number/volume) 3.89 10*6/uL 4.35-5.85 Venous blood hemoglobin measurement (mass/volume) 11.1 g/dL 13.3-17.7 Blood hematocrit (volume fraction) 35 % 40-54 Automated erythrocyte mean corpuscular volume 90 [foz_us] 80-99 Automated erythrocyte mean corpuscular hemoglobin (mass per erythrocyte) 29 pg 25-34 Automated erythrocyte mean corpuscular hemoglobin concentration measurement ( mass/volume) 32 g/dL 32-36 Automated erythrocyte distribution width ratio 14.2 % 10.0-14.5 Automated blood platelet count (count/volume) 240 10*3/uL 130-400 Automated blood platelet mean volume measurement 11.6 [foz_us] 7.4-10.4 PT panel in platelet poor plasma by coagulation assay - 08/21/18 09:10 Prothrombin time (PT) in platelet poor plasma by coagulation assay 12.6 s 12.2-14.7 INR in platelet poor plasma or blood by coagulation assay 1.0 0.8-1.4 Activated partial thromboplastin time (aPTT) in platelet poor plasma bycoagulation assay - 08/21/18 09:10 Activated partial thromboplastin time (aPTT) in platelet poor plasma bycoagulation assay 32 s 24-35 Comprehensive metabolic panel - 08/21/18 09:10 Serum or plasma sodium measurement (moles/volume) 143 mmol/L 135-145 Serum or plasma potassium measurement (moles/volume) 4.4 mmol/L 3.6-5.0 Serum or plasma chloride measurement (moles/volume) 110 mmol/L 98-107 Carbon dioxide 22 mmol/L 21-32 Serum or plasma anion gap determination (moles/volume) 11 mmol/L 5-14 Serum or plasma urea nitrogen measurement (mass/volume) 33 mg/dL 7-18 Serum or plasma creatinine measurement (mass/volume) 1.49 mg/dL 0.60-1.30 Serum or plasma urea nitrogen/creatinine mass ratio 22 NRG Serum or plasma creatinine measurement with calculation of estimated glomerular filtration rate 45 NRG Serum or plasma glucose measurement (mass/volume) 94 mg/dL 70-105 Serum or plasma calcium measurement (mass/volume) 9.4 mg/dL 8.5-10.1 Serum or plasma total bilirubin measurement (mass/volume) 0.4 mg/dL 0.1-1.0 Serum or plasma alkaline phosphatase measurement (enzymatic activity/volume) 101 U/L 40-136 Serum or plasma aspartate aminotransferase measurement (enzymatic activity/ volume) 21 U/L 5-34 Serum or plasma alanine aminotransferase measurement (enzymatic activity/volume ) 15 U/L 0-55 Serum or plasma protein measurement (mass/volume) 7.0 g/dL 6.4-8.2 Serum or plasma albumin measurement (mass/volume) 3.7 g/dL 3.2-4.5 CALCIUM CORRECTED 9.6 mg/dL 8.5-10.1 Lipid 1996 panel - 08/21/18 09:10 Serum or plasma triglyceride measurement (mass/volume) 105 mg/dL <150 Serum or plasma cholesterol measurement (mass/volume) 157 mg/dL < 200 Serum or plasma cholesterol in HDL measurement (mass/volume) 86 mg/ dL 40-60 Cholesterol in LDL [mass/volume] in serum or plasma by direct assay 50 mg/dL 1-129 Serum or plasma cholesterol in VLDL measurement (mass/volume) 21 mg/ dL 5-40 RED CELLS LEUKO REDUCED AS1 - 08/21/18 15:15 RED CELLS LEUKO REDUCED AS1 TRANSFUSED 08/21/18 1607 NRG Blood type T Indirect antibody screen panel - 08/21/18 15:15 ABO+Rh group AP NRG Transfusion band number [id number] NRG Blood group antibody screen NEGATIVE NRG Complete blood count (CBC) with automated white blood cell (WBC) differential - 08/21/18 19:57 Blood leukocytes automated count (number/volume) 10.4 10*3/uL 4.3-11.0 Blood erythrocytes automated count (number/volume) 4.57 10*6/uL 4.35-5.85 Venous blood hemoglobin measurement (mass/volume) 13.5 g/dL 13.3-17.7 Blood hematocrit (volume fraction) 41 % 40-54 Automated erythrocyte mean corpuscular volume 89 [foz_us] 80-99 Automated erythrocyte mean corpuscular hemoglobin (mass per erythrocyte) 30 pg 25-34 Automated erythrocyte mean corpuscular hemoglobin concentration measurement ( mass/volume) 33 g/dL 32-36 Automated erythrocyte distribution width ratio 14.8 % 10.0-14.5 Automated blood platelet count (count/volume) 151 10*3/uL 130-400 Automated blood platelet mean volume measurement 11.7 [foz_us] 7.4-10.4 Automated blood neutrophils/100 leukocytes 83 % 42-75 Automated blood lymphocytes/100 leukocytes 6 % 12-44 Blood monocytes/100 leukocytes 11 % 0-12 Automated blood eosinophils/100 leukocytes 0 % 0-10 Automated blood basophils/100 leukocytes 0 % 0-10 Blood neutrophils automated count (number/volume) 8.6 10*3 1.8-7.8 Blood lymphocytes automated count (number/volume) 0.6 10*3 1.0-4.0 Blood monocytes automated count (number/volume) 1.1 10*3 0.0-1.0 Automated eosinophil count 0.0 10*3/uL 0.0-0.3 Automated blood basophil count (count/volume) 0.0 10*3/uL 0.0-0.1 Blood manual differential performed detection - 08/21/18 19:57 Blood monocytes/100 leukocytes 6 % NRG Manual blood segmented neutrophils/100 leukocytes 72 % NRG Blood band neutrophils/100 leukocytes 16 % NRG Manual blood lymphocytes/100 leukocytes 4 % NRG Manual eosinophils/100 leukocytes in nose 1 % NRG Manual blood basophils/100 leukocytes 1 % NRG Blood erythrocyte morphology finding identification NORMAL NRG Complete blood count (CBC) with automated white blood cell (WBC) differential - 08/22/18 03:16 Blood leukocytes automated count (number/volume) 8.3 10*3/uL 4.3-11.0 Blood erythrocytes automated count (number/volume) 4.04 10*6/uL 4.35-5.85 Venous blood hemoglobin measurement (mass/volume) 11.6 g/dL 13.3-17.7 Blood hematocrit (volume fraction) 36 % 40-54 Automated erythrocyte mean corpuscular volume 88 [foz_us] 80-99 Automated erythrocyte mean corpuscular hemoglobin (mass per erythrocyte) 29 pg 25-34 Automated erythrocyte mean corpuscular hemoglobin concentration measurement ( mass/volume) 33 g/dL 32-36 Automated erythrocyte distribution width ratio 14.9 % 10.0-14.5 Automated blood platelet count (count/volume) 157 10*3/uL 130-400 Automated blood platelet mean volume measurement 11.7 [foz_us] 7.4-10.4 Automated blood neutrophils/100 leukocytes 81 % 42-75 Automated blood lymphocytes/100 leukocytes 5 % 12-44 Blood monocytes/100 leukocytes 13 % 0-12 Automated blood eosinophils/100 leukocytes 0 % 0-10 Automated blood basophils/100 leukocytes 0 % 0-10 Blood neutrophils automated count (number/volume) 6.8 10*3 1.8-7.8 Blood lymphocytes automated count (number/volume) 0.4 10*3 1.0-4.0 Blood monocytes automated count (number/volume) 1.1 10*3 0.0-1.0 Automated eosinophil count 0.0 10*3/uL 0.0-0.3 Automated blood basophil count (count/volume) 0.0 10*3/uL 0.0-0.1 Whole blood basic metabolic panel - 08/22/18 03:16 Serum or plasma sodium measurement (moles/volume) 143 mmol/L 135-145 Serum or plasma potassium measurement (moles/volume) 4.6 mmol/L 3.6-5.0 Serum or plasma chloride measurement (moles/volume) 114 mmol/L 98-107 Carbon dioxide 18 mmol/L 21-32 Serum or plasma anion gap determination (moles/volume) 11 mmol/L 5-14 Serum or plasma urea nitrogen measurement (mass/volume) 29 mg/dL 7-18 Serum or plasma creatinine measurement (mass/volume) 1.08 mg/dL 0.60-1.30 Serum or plasma urea nitrogen/creatinine mass ratio 27 NRG Serum or plasma creatinine measurement with calculation of estimated glomerular filtration rate > NRG Serum or plasma glucose measurement (mass/volume) 73 mg/dL 70-105 Serum or plasma calcium measurement (mass/volume) 8.2 mg/dL 8.5-10.1 Serum or plasma phosphate measurement (mass/volume) - 08/22/18 03:16 Serum or plasma phosphate measurement (mass/volume) 3.9 mg/dL 2.3-4.7 Magnesium - 08/22/18 03:16 Magnesium 1.7 mg/dL 1.8-2.4 Encounters ACCT No. Visit Date/Time Discharge Status Pt. Type Provider Facility Loc./Unit Complaint [id number] 08/06/2018 11:54:00 08/06/2018 23:59:59 CLS Outpatient RADHA WRIGHT MD [facility] WOUNDCARE [id number] 01/02/2018 10:25:00 01/02/2018 23:59:59 CLS Outpatient GHULAM PARKER MD [facility] CARD CAD,HTN [id number] 12/25/2017 14:45:00 12/25/2017 23:59:59 CLS Preadmit CLEVE KUMAR MD [facility] RAD RECURRENT ING HERNIA [id number] 12/15/2017 07:05:00 12/15/2017 23:59:59 CLS Outpatient GHULAM PARKER MD [facility] CARD CAD,HTN [id number] 04/05/2016 10:17:00 04/05/2016 23:59:59 CLS Outpatient GHULAM PARKER MD [facility] CARD CAD,HTN,DYSPNEA,HLP, HYPOTHYROIDISM [id number] 02/08/2015 10:34:00 02/08/2015 23:59:59 CLS Outpatient GHULAM PARKER MD [facility] CARD CAD HTN HLE HYPOTHYROIDISM [id number] 05/04/2013 08:27:00 05/04/2013 23:59:59 CLS Outpatient GHULAM PARKER MD [facility] CARD CAD,HTN,HLP [id number] 08/22/2018 10:57:00 ACT Inpatient ELENA NIELSON, GHULAM Best [facility] ICU ABN CLARI'S,CLAUDICATION [id number] 08/19/2018 13:22:00 ACT Outpatient ROSITA NIELSON, KARLY Jerez [facility] WOUNDCARE [id number] 02/08/2015 10:35:00 Document Registration [id number] 02/08/2015 10:35:00 Document Registration [id number] 12/20/2009 11:14:00 Document Registration [email or web address] 02/08/2015 10:35:11 ACT Document Registration
--- NOTE | 2018-08-22 12:04 | Consultation-Hospitalist ---
HPI History of Present Illness: Source: patient Date Seen 08/22/18 Attending Physician Kat Chavira MD PCP Edu Keene MD Referring Physician Date of Admission Aug 22, 2018 at 10:57 Home Medications & Allergies Home Medications Reviewed patient Home Medication Reconciliation performed by pharmacy medication reconciliations pilot plant technician and/or nursing. Patients Allergies have been reviewed. Allergies Allergies Coded Allergies No Known Drug Allergies (Unverified09/04/09) Past Fyyspte-Kwtilx-Sermth Hx Patient Social History Marrital Status: single Employed/Student: retired Alcohol Use: Denies Use Recreational Drug Use: No Former Smoker, Quit: Aug 21, 2007 Type Used: Cigarettes Recent Foreign Travel: No Contact w/other who traveled: No Recent Hopitalizations: No Recent Infectious Disease Expo: No Immunizations Up To Date Date of Pneumonia Vaccine: Jun 01, 2018 Date of Influenza Vaccine: May 18, 2018 Past Medical History Cardiac: Coronary Artery Disease, High Cholesterol, Hypertension Reproductive: No 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 0.0oz. 73.177958dl; 20.7 BMI Method:Stated Results Results/Procedures Labs Laboratory Tests 08/21/18 09:10 08/21/18 19:57 08/22/18 03:16 Patient resulted labs reviewed. Assessment/Plan Assessment and Plan Assess & Plan/Chief Complaint Hypovolemic Shock Diagnosis/Problems Diagnosis/Problems (1) Hypovolemic shock Status: Acute Assessment & Plan: 2/2 blood loss following cath and hematoma s/p 4 units pRBCs Now off dopamine Bp stable today (2) PAD (peripheral artery disease) Status: Chronic Assessment & Plan: Under peripheral angiography yesterday On aspirin and plavix s/p stent placement and balloon x2 (3) CAD (coronary artery disease) Status: Chronic Assessment & Plan: history of CAD with history of stents x2 in past (4) Hypothyroidism Status: Chronic Assessment & Plan: Continue home supplement Qualifiers: Hypothyroidism type: unspecified Qualified Codes: E03.9 - Hypothyroidism, unspecified (5) Discharge planning issues Assessment & Plan: Currently has HH for Mondays and Friday Will likely need more assistance upon discharge Consider IRU vs SNF ANDRIA WALSH MD Aug 22, 2018 12:04
--- NOTE | 2018-08-22 16:07 | NUR ---
Father Frankie's family friend Sally Moore called to check on him at this time. She was requesting a aprox time for pt to be discharged tomorrow. This nurse asked her if the pt lives alone. She stated that Father was her mothers roommate and that her mother had passed in June last year. Father has been living alone in her mothers house. Her brother is trying to clear the estate left from his mothers passing and this includes selling the home that Father Frankie now lives in leaving him with no place to stay. Sally has been wanting to help Father Frankie get into a assisted living or something of that type here in [place] as that is where all of his current health care is seen to. Father Frankie is unaware at this time because she did not want to further concern him while he is dealing with his current health issues. Sally voiced great appreciation for any assistance we can give in getting Father Frankie settled. She currently lives 20-25 miles away from him and is concerned for his well being with him living alone. Pt currently has a substantial bruise to his left lateral back and when this nurse asked him how he got it he stated " I fell asleep in a chair and fell off the chair and into something on the way down". also stated he does not sleep well due to the pain in his legs and he hopes that this will be better now that Dr Chavira has seen him. Dr Aiken was notified of this situation and a rn social work consult has been placed.
[2018-08-23] VITALS (7 sets, daily range): BP systolic 108–173; BP diastolic 56–78
[2018-08-23 03:47] LABS: BASOPHILS % (AUTO) 0 % (0-10); EOSINOPHILS # (AUTO) 0.2 10^3/uL (0.0-0.3); EOSINOPHILS % (AUTO) 2 % (0-10); HEMATOCRIT 32 % (40-54); HEMOGLOBIN 10.9 G/DL (13.3-17.7); LYMPHOCYTES # (AUTO) 0.7 X 10^3 (1.0-4.0); LYMPHOCYTES % (AUTO) 9 % (12-44); MEAN CORPUSCULAR HEMOGLOBIN 30 PG (25-34); MEAN CORPUSCULAR HGB CONC 34 G/DL (32-36); MEAN CORPUSCULAR VOLUME 88 FL (80-99); MEAN PLATELET VOLUME 11.5 FL (7.4-10.4); MONOCYTES # (AUTO) 1.5 X 10^3 (0.0-1.0); MONOCYTES % (AUTO) 18 % (0-12); NEUTROPHILS % (AUTO) 72 % (42-75); PLATELET COUNT 148 10^3/uL (130-400); RED BLOOD COUNT 3.63 10^6/uL (4.35-5.85); RED CELL DISTRIBUTION WIDTH 14.8 % (10.0-14.5); WHITE BLOOD COUNT 8.3 10^3/uL (4.3-11.0)
[2018-08-23 04:04] LABS: BUN/CREATININE RATIO 23; CALCIUM 8.2 MG/DL (8.5-10.1); CARBON DIOXIDE 20 MMOL/L (21-32); CHLORIDE 112 MMOL/L (98-107); CREATININE SERUM 1.12 MG/DL (0.60-1.30); GFR ESTIMATED > 60; GLUCOSE 94 MG/DL (70-105); PHOSPHORUS 2.5 MG/DL (2.3-4.7); POTASSIUM 4.2 MMOL/L (3.6-5.0); SODIUM 140 MMOL/L (135-145)
[2018-08-23] MEDS: MAGNESIUM 1 GM/100 ML IVPB 100 ML IV SCH (04:17)
[2018-08-23] MEDS: POTASSIUM CL 10MEQ/50ML IVPB 50 ML IV SCH (04:17)
[2018-08-23] MEDS: NS IV 1000 ML 1,000 ML IV SCH ×2 (04:18→09:26)
[2018-08-23] MEDS: KCL 20 MEQ TAB (K-DUR) PO SCH (04:18)
[2018-08-23] MEDS: LEVOTHYROXINE 50 MCG (LEVOTHROID) TAB PO SCH (06:24)
[2018-08-23] MEDS: PANTOPRAZOLE 40 MG (PROTONIX) TAB PO SCH (06:24)
--- NOTE | 2018-08-23 08:26 | Cardiology Progress Note ---
Subjective Date Seen by Provider: Aug 23, 2018 Time Seen by Provider: 08:24 Subjective/Events-last exam patient is laying down in bed, complaining of generalized weakness and fatigue. Not sure that he will be able to take care of himself at home. Review of Systems General: No Chills, No Night Sweats, No Fatigue, No Malaise, No Appetite, No Other HEENT: No Head Aches, No Visual Changes, No Eye Pain, No Ear Pain, No Dysphasia , No Sinus Congestion, No Post Nasal Drip, No Sore Throat, No Other Pulmonary: No Dyspnea, No Cough, No Pleuritic Chest Pain, No Other Cardiovascular: No: Chest Pain, Palpitations, Orthopnea, Paroxysmal Noc. Dyspnea, Edema, Lt Headedness, Other Objective-Cardiology Exam Last Set of Vital Signs Vital Signs 08/22/18 08/23/18 11:00 04:00 Temp 99.7 Pulse 77 Resp 17 B/P (MAP) 147/60 (89) Pulse Ox 98 O2 Delivery Room Air O2 Flow Rate 3.00 Capillary Refill : Greater Than 3 Seconds I&O Intake and Output 08/23/18 00:00 Intake Total 930 ml Output Total 1825 ml Balance -895 ml Intake Oral 830 ml IV Total 100 ml Output Urine Total 1825 ml General: Alert, Oriented X3, Cooperative, No Acute Distress HEENT: Atraumatic, PERRLA Lungs: Clear to Auscultation, Normal Air Movement Heart: Regular Rate, Normal S1, Normal S2, No Murmurs Abdomen: Normal Bowel Sounds, Soft, No Tenderness, No Hepatosplenomegaly, No Masses Extremities: No Clubbing, No Cyanosis, No Edema, No Tenderness/Swelling Skin: No Rashes, No Breakdown, No Significant Lesion Neuro: Normal Gait, Normal Speech, Strength at 5/5 X4 Ext, Normal Tone, Sensation Intact Psych/Mental Status: Mental Status NL, Mood NL Results Lab Laboratory Tests 08/23/18 03:30 A/P-Cardiology Admission Diagnosis peripheral arterial disease Nonhealing foot ulcer Coronary artery disease Hypotensive shock Assessment/Plan Status post hypotension secondary to bleeding. Improved at this time. Blood pressure is stable. Continue to monitor Generalized weakness, sustained a fall at home, patient does not have the ability to take care of himself at home, will consult home health care social worker and discussed assisted-living options Peripheral arterial disease, claudication, lower extremity pain, nonhealing ulcer on the right heel, abnormal CLARI, status post balloon angioplasty to the posterior tibial artery and peroneal artery on the right, balloon angioplasty then stent deployment to the right SFA. Large bleed from the left groin successful balloon angioplasty and sealing of the bleed through balloon in the left iliac and common femoral artery. Coronary artery disease, history of cardiac catheterization with multiple stents in 2009, using 2 stents to the right coronary artery 3.0x12 mm to the proximal right coronary artery Promus stent, 2.5x28 mm Promus stent to the distal right coronary artery. 2.5x12 mm Promus stent to the LAD. Currently asymptomatic, continue to monitor. Most recent stress test November 2017 revealed no ischemia or infarct. continue to monitor Hypertension, restarted home medication, monitor blood pressure Hyperlipidemia. continue to monitor lipids Chronic renal insufficiency, improved with aggressive hydration received a total of 100 mL of contrast. Pulmonary hypertension,improved, last echocardiogram was done in December 2017 showing pulmonary artery pressure of 50 mmHg. Moderate bilateral carotid stenosis, last ultrasound was done in March 2018. Venous insufficiency- Patient had small saphenous vein chronic insufficiency with reflux time more than 4.9 seconds, he has chronic venous stasis changes on the right lower extremity. Now has nonhealing wound to RLE. Management as discussed above. History of tobaccoism, has been abstinent since 2009. Encouraged to continue with smoking cessation. Hypothyroidism, maintained on Synthroid 50 mcg daily, managed by Dr. Keene. GHULAM PARKER MD Aug 23, 2018 08:26
[2018-08-23] MEDS: CLOPIDOGREL 75 MG (PLAVIX) TABLET PO SCH (08:38)
[2018-08-23] MEDS: DOCUSATE SODIUM 100 MG (COLACE) CAP PO SCH ×2 (08:38→20:20)
[2018-08-23] MEDS: ATORVASTATIN 20 MG (LIPITOR) TABLET PO SCH (08:38)
[2018-08-23] MEDS: FERROUS SULF 325 MG (IRON) TAB PO SCH (08:38)
[2018-08-23] MEDS: TAMSULOSIN 0.4 MG (FLOMAX) CAP PO SCH (08:39)
[2018-08-23] MEDS: LOSARTAN 50 MG (COZAAR) TAB PO SCH (08:39)
[2018-08-23] MEDS: ASPIRIN E.C. 81 MG (ECOTRIN) TAB PO SCH (08:39)
--- NOTE | 2018-08-23 09:45 | NUR ---
Pt to room via chair. introduced to room and call system. bedside report given to Maria Luisa SALINAS
[2018-08-24 00:36] VITALS: BP 159/74
[2018-08-24] MEDS: POTASSIUM CL 10MEQ/50ML IVPB 50 ML IV SCH (04:14)
[2018-08-24] MEDS: MAGNESIUM 1 GM/100 ML IVPB 100 ML IV SCH (04:14)
[2018-08-24] MEDS: KCL 20 MEQ TAB (K-DUR) PO SCH (04:15)
[2018-08-24 04:38] VITALS: BP 155/72
[2018-08-24] MEDS: LEVOTHYROXINE 50 MCG (LEVOTHROID) TAB PO SCH (06:09)
[2018-08-24] MEDS: PANTOPRAZOLE 40 MG (PROTONIX) TAB PO SCH (06:09)
[2018-08-24] MEDS: FERROUS SULF 325 MG (IRON) TAB PO SCH (06:09)
[2018-08-24 06:44] LABS: BASOPHILS % (AUTO) 0 % (0-10); EOSINOPHILS # (AUTO) 0.3 10^3/uL (0.0-0.3); EOSINOPHILS % (AUTO) 4 % (0-10); HEMATOCRIT 32 % (40-54); HEMOGLOBIN 10.6 G/DL (13.3-17.7); LYMPHOCYTES # (AUTO) 0.6 X 10^3 (1.0-4.0); LYMPHOCYTES % (AUTO) 8 % (12-44); MEAN CORPUSCULAR HEMOGLOBIN 29 PG (25-34); MEAN CORPUSCULAR HGB CONC 33 G/DL (32-36); MEAN CORPUSCULAR VOLUME 90 FL (80-99); MEAN PLATELET VOLUME 11.7 FL (7.4-10.4); MONOCYTES # (AUTO) 1.6 X 10^3 (0.0-1.0); MONOCYTES % (AUTO) 20 % (0-12); NEUTROPHILS # (AUTO) 5.4 X 10^3 (1.8-7.8); NEUTROPHILS % (AUTO) 68 % (42-75); PLATELET COUNT 149 10^3/uL (130-400); RED BLOOD COUNT 3.61 10^6/uL (4.35-5.85); RED CELL DISTRIBUTION WIDTH 14.5 % (10.0-14.5); WHITE BLOOD COUNT 7.8 10^3/uL (4.3-11.0)
[2018-08-24 06:59] LABS: BUN/CREATININE RATIO 24; CALCIUM 8.2 MG/DL (8.5-10.1); CARBON DIOXIDE 22 MMOL/L (21-32); CHLORIDE 110 MMOL/L (98-107); CREATININE SERUM 1.14 MG/DL (0.60-1.30); GFR ESTIMATED > 60; GLUCOSE 91 MG/DL (70-105); MAGNESIUM 1.8 MG/DL (1.8-2.4); PHOSPHORUS 2.5 MG/DL (2.3-4.7); POTASSIUM 3.8 MMOL/L (3.6-5.0); SODIUM 140 MMOL/L (135-145)
[2018-08-24 08:00] VITALS: BP 175/79
--- NOTE | 2018-08-24 08:56 | Cardiology Progress Note ---
Subjective Date Seen by Provider: Aug 24, 2018 Time Seen by Provider: 08:55 Subjective/Events-last exam patient is sitting in bed, feeling better, groin is healing well, the pain in his foot has improved Review of Systems General: No Chills, No Night Sweats, No Fatigue, No Malaise, No Appetite, No Other HEENT: No Head Aches, No Visual Changes, No Eye Pain, No Ear Pain, No Dysphasia , No Sinus Congestion, No Post Nasal Drip, No Sore Throat, No Other Pulmonary: No Dyspnea, No Cough, No Pleuritic Chest Pain, No Other Cardiovascular: No: Chest Pain, Palpitations, Orthopnea, Paroxysmal Noc. Dyspnea, Edema, Lt Headedness, Other Objective-Cardiology Exam Last Set of Vital Signs Vital Signs 08/22/18 08/24/18 08/24/18 11:00 04:38 08:44 Temp 99.2 Pulse 81 Resp 17 B/P (MAP) 155/72 (99) Pulse Ox 81 O2 Delivery Room Air O2 Flow Rate 3.00 Capillary Refill : Greater Than 3 Seconds I&O Intake and Output 08/24/18 00:00 Intake Total 1260 ml Output Total 1150 ml Balance 110 ml Intake Oral 1260 ml Output Urine Total 1150 ml # Voids 1 # Bowel Movements 1 General: Alert, Oriented X3, Cooperative, No Acute Distress HEENT: Atraumatic, PERRLA Lungs: Clear to Auscultation, Normal Air Movement Heart: Regular Rate, Normal S1, Normal S2, No Murmurs Abdomen: Normal Bowel Sounds, Soft, No Tenderness, No Hepatosplenomegaly, No Masses Extremities: No Clubbing, No Cyanosis, No Edema, No Tenderness/Swelling Skin: No Rashes, No Breakdown, No Significant Lesion Neuro: Normal Gait, Normal Speech, Strength at 5/5 X4 Ext, Normal Tone, Sensation Intact Psych/Mental Status: Mental Status NL, Mood NL Results Lab Laboratory Tests 08/24/18 06:02 A/P-Cardiology Admission Diagnosis peripheral arterial disease Nonhealing foot ulcer Coronary artery disease Hypotensive shock Assessment/Plan Status post hypotension secondary to bleeding. Improved at this time. Blood pressure is stable. Continue to monitor Generalized weakness, sustained a fall at home, patient does not have the ability to take care of himself at home, will consult manager social work and discussed assisted-living options Peripheral arterial disease, claudication, lower extremity pain with resting foot pain, nonhealing ulcer on the right heel, abnormal CLARI, status post balloon angioplasty to the posterior tibial artery and peroneal artery on the right, balloon angioplasty then stent deployment to the right SFA. Reporting significant improvement in his pain. Large bleed from the left groin successful balloon angioplasty and sealing of the bleed through balloon in the left iliac and common femoral artery. Coronary artery disease, history of cardiac catheterization with multiple stents in 2009, using 2 stents to the right coronary artery 3.0x12 mm to the proximal right coronary artery Promus stent, 2.5x28 mm Promus stent to the distal right coronary artery. 2.5x12 mm Promus stent to the LAD. Currently asymptomatic, continue to monitor. Most recent stress test November 2017 revealed no ischemia or infarct. continue to monitor Hypertension, restarted home medication, monitor blood pressure Hyperlipidemia. continue to monitor lipids Chronic renal insufficiency, improved with aggressive hydration received a total of 100 mL of contrast. Pulmonary hypertension,improved, last echocardiogram was done in December 2017 showing pulmonary artery pressure of 50 mmHg. Moderate bilateral carotid stenosis, last ultrasound was done in March 2018. Venous insufficiency- Patient had small saphenous vein chronic insufficiency with reflux time more than 4.9 seconds, he has chronic venous stasis changes on the right lower extremity. Now has nonhealing wound to RLE. Management as discussed above. History of tobaccoism, has been abstinent since 2009. Encouraged to continue with smoking cessation. Hypothyroidism, maintained on Synthroid 50 mcg daily, managed by Dr. Keene. GHULAM PARKER MD Aug 24, 2018 08:56
[2018-08-24] MEDS: CLOPIDOGREL 75 MG (PLAVIX) TABLET PO SCH (09:03)
[2018-08-24] MEDS: DOCUSATE SODIUM 100 MG (COLACE) CAP PO SCH ×2 (09:03→21:38)
[2018-08-24] MEDS: ASPIRIN E.C. 81 MG (ECOTRIN) TAB PO SCH (09:04)
[2018-08-24] MEDS: TAMSULOSIN 0.4 MG (FLOMAX) CAP PO SCH (09:04)
[2018-08-24] MEDS: LOSARTAN 50 MG (COZAAR) TAB PO SCH (09:05)
[2018-08-24] MEDS: ATORVASTATIN 20 MG (LIPITOR) TABLET PO SCH (09:05)
[2018-08-24] MEDS ORDERED: METO-333 PO (09:47)
[2018-08-24] MEDS ORDERED: LOSA50TA7 PO (09:47)
[2018-08-24] MEDS ORDERED: CHOL20003 PO (09:47)
[2018-08-24] MEDS ORDERED: LEVO50TA6 PO (09:47)
[2018-08-24] MEDS ORDERED: ASPI-808 PO (09:47)
--- NOTE | 2018-08-24 09:50 | NUR ---
SPOKE WITH THE PATIENT ABOUT HIS MEDICATIONS, HE HAD A LIST WITH HIM AND I COMPARED IT WITH THE EXT MED HX. HE ALSO TAKES THE FOLLOWING OTC: ASPIRIN 325MG DAILY @ 1200 VITAMIN D3 2000 UNITS DAILY [facility] CAP EVERY EVENING. THE MED REC HAD ALREADY BEEN REVIEWED AND CONTINUED PRIOR TO MED REC TECH AVAILABILITY. I MADE THE NECESSARY CORRECTIONS AND GAVE THEM TO PHARMACIST BRYCE FOR CLARIFICATION.
--- NOTE | 2018-08-24 10:05 | Physical Therapy Evaluation ---
PT Evaluation-General Medical Diagnosis Admission Date Aug 22, 2018 at 10:57 Medical Diagnosis: abnormal CLARI Onset Date: Aug 22, 2018 Therapy Diagnosis Therapy Diagnosis: Generalized weakness/debility Height/Weight Height (Feet): 5 Height (Inches): 10.00 Weight (Pounds): 151 Weight (Ounces): 14.0 Precautions Precautions/Isolations: Standard Precautions Weight Bear Status Right Lower Extremity: Right Weight Bearing/Tolerated Left Lower Extremity: Left Weight Bearing/Tolerated Referral Physician: Cait Medical History Pertinent Medical History: CAD, HTN Additional Medical History PAD Current History became hypotensive after removing sheath from heart cath/developed hematoma Reviewed History: Yes Social History Home: Single Level Current Living Status: Alone Entry Into Home: Stairs Without Railing PT Steps Into Home: 3 Prior/Core FIM Prior Level of Function Therapy Code Descriptions/Definitions Functional Emmons Measure: 0=Not Assessed/NA 4=Minimal Assistance 1=Total Assistance 5=Supervision or Setup 2=Maximal Assistance 6=Modified Emmons 3=Moderate Assistance 7=Complete Emmons Therapy Quality Codes: 6 Independent with activity with or without an assistive device 5 Patient requires set up or clean up by helper. Patient completes activity by themselves 4 Supervision or touching assist (CGA). [place] provide cues , steadying assist 3 The helper provides less than half the effort to complete the activity 2 The helper provides more than half the effort to complete the activity 1 Dependent. The helper does all the effort to complete an activity 7 Patient refused to complete or attempt activity 9 The patient did not perform the activity before the current illness or injury 88 Not attempted due to Medical conditions or safety concerns Functional Abilities and Goals: Independent: Patient completed the activities by him/herself, with or without an assistive device, with no assistance from a helper. Needed Some Help: Patient needed partial assistance from another person to complete activities. Dependent: A helper completed the activities for the patient. Unknown: Not Applicable: Bed Mobility: 6 Transfers (B,C,W/C) (FIM): 6 Gait: 6 Stairs: 6 Indoor Mobility (Ambulation): Independent Stairs: Independent Prior Devices Use: None Prior Device Use: cane PT Evaluation-Current Subjective Patient is very agreeable to participate with PT. Pain Numeric Pain Scale: 0-No Pain Location: No Pain Reported Objective Patient Orientation: Normal For Age Problem Solving: Fair ROM/Strength ROM Lower Extremities bilateral LE WFL Strength Lower Extremities 4+/5 grossly bilateral LE Integumentary/Posture Integumentary refer to nursing notes Bowel Incontinence: No Bladder Incontinence: No Posture kyphotic Neuromuscular (Tone, Coordination, Reflexes) grossly intact Sensory Vision: Wears Glasses Hearing: Functional Sensation Right Lower Extremit: Impaired Sensation Left Lower Extremity: Impaired Transfers Therapy Code Descriptions/Definitions Functional Emmons Measure: 0=Not Assessed/NA 4=Minimal Assistance 1=Total Assistance 5=Supervision or Setup 2=Maximal Assistance 6=Modified Emmons 3=Moderate Assistance 7=Complete Emmons Transfers (B, C, W/C) (FIM): 5 Scootin Rollin Supine to/from Sit: 5 Sit to/from Stand: 5 Gait Mode of Locomotion: Walk Anticipated Mode of Locomotion: Walk Gait (FIM): 5 Distance (FIM): 3=150 ft Distance: 300' Gait Level of Assist: 5 Gait Assistive Device: FWW Comments/Gait Description steady, safe and functional Balance Sitting Static: Normal Sitting Dynamic: Normal Standing Static: Normal Standing Dynamic: Normal Assessment/Needs 83 y.o. male, will be seen short term by skilled PT to address functional strength and mobility to improve current LOF and to safely return to home at maximum LOF. Patient will require a FWW for home use upon dismissal for safety. SW notified. Rehab Potential: Fair PT Short Term Goals Short Term Goals Time Frame: Aug 29, 2018 Transfers (B,C,W/C) (FIM): 6 Gait (FIM): 6 Distance (FIM): 3=150 ft Gait Distance Comment: 350' Gait Level of Assist: 6 Gait Assistive Device: FWW PT Plan Treatment/Plan Treatment Plan: Continue Plan of Care Treatment Plan: Education, Functional Activity Taisha, Functional Strength, Safety, Therapeutic Exercise Treatment Duration: Aug 29, 2018 Frequency: 5 times per week Estimated Hrs Per Day: .25 hour per day Patient and/or Family Agrees t: Yes Discharge Recommendations Equpiment Recommendations-D/C: Front Wheeled Walker Time/GCodes Time In: 910 Time Out: 930 Total Billed Treatment Time: 20 Total Billed Treatment 1 visit EVModC 20 min G Codes Necessary: No NIRANJAN OZUNA PT Aug 24, 2018 10:05
[2018-08-24 12:00] VITALS: BP 129/56
--- NOTE | 2018-08-24 14:23 | NUR ---
CM/SS, respond to consult for discharge planning, complex. PLAN: Possible new residency at assisted living facility vs discharge to SNF as a bridge to assisted living. SUMMARY: Met with patient and then later with patient and his friend Sally Moore. Patient resided with Sally's mother material handler 1st shift in [place], she 06/29/18. Patient has since continued to live in the home, but the children are now in the process of selling it. Patient was exploring his housing options when his health issues complicated the matter, and he has since expedited trying to make a decision about where he will live. Patient stated that he has no family here, he is from [place] and has cousins/distant relatives there. His "dream" is to return to [place], but he stated he is realistic that this is a "dream" that may not come true. Sally is a very good friend to patient, she resides in [place]. Both appear in agreement patient would try to move to assisted living in the [facility] due to this being the main location for his physicians, wound care, health care. Provided list of [facility]ARE [facility] in our area to both patient and Sally. Sally contacted the facilities to ask about room availability and if they would take patient's [facility]. Patient will need to apply for HCBS Waiver, staff writer reached out to [facility], [facility], and [facility] and they will all take patient HCBS pending. It will be up to patient/Sally to make a final decision about which facility, and Sally is touring these today on patient's behalf. Await a call from Sally regarding her preferred facility and patient's final choice. Will make appropriate referral once known. Sally/patient understand that [facility] apartment is empty, Sally states no problem coordinating furnishings and getting those moved. Assist as appropriate.
--- NOTE | 2018-08-24 15:39 | NUR ---
Wound care consult placed and Dr. Shepherd notified of right ankle wound/dressing. Dressing in place prior to admission, patient states that it's usually changed on Mondays and Wednesdays at [facility] due to the closing of the clinic he is in the process of using the [facility] wound clinic.
[2018-08-24 16:00] VITALS: BP 148/80
[2018-08-24 20:00] VITALS: BP 158/76
--- NOTE | 2018-08-24 20:47 | NUR ---
This RN called Dr. Renee in regards to the pt complaining of pain rated at a 7 on a numeric scale in the groin on the left side and the pt requesting Tylenol, this RN also informed Dr. Renee that this RN and house sup. assessed the area due to mild swelling, bruising, and pain post heart cath (on 08/21) and tank cleaning supervisor noted no bleeding, pt stated the area has been swollen since the heart cath and has not increased. Orders received for Tylenol 500 mg PO Q8H prn pain. Orders read back and verified.
--- NOTE | 2018-08-24 20:59 | Wound Care Assessment ---
Wound Care Assessment Date Seen by Provider: Aug 24, 2018 Time Seen by Provider: 20:53 Recreational Drug Use: No Alcohol Use: Denies Use Exam Vital Signs Date Time Temp Pulse Resp B/P (MAP) Pulse Ox O2 Delivery O2 Flow Rate FiO2 08/24/18 16:00 97.6 64 17 148/80 (102) 93 Room Air 08/22/18 11:00 3.00 Capillary Refill : Greater Than 3 Seconds Skin: other Results Laboratory Tests 08/24/18 06:02: White Blood Count 7.8, Red Blood Count 3.61L, Hemoglobin 10.6L, Hematocrit 32L, Mean Corpuscular Volume 90, Mean Corpuscular Hemoglobin 29, Mean Corpuscular Hemoglobin Concent 33, Red Cell Distribution Width 14.5, Platelet Count 149, Mean Platelet Volume 11.7H, Neutrophils (%) (Auto) 68, Lymphocytes (%) (Auto) 8L , Monocytes (%) (Auto) 20H, Eosinophils (%) (Auto) 4, Basophils (%) (Auto) 0, Neutrophils # (Auto) 5.4, Lymphocytes # (Auto) 0.6L, Monocytes # (Auto) 1.6H, Eosinophils # (Auto) 0.3, Basophils # (Auto) 0.0, Sodium Level 140, Potassium Level 3.8, Chloride Level 110H, Carbon Dioxide Level 22, Anion Gap 8, Blood Urea Nitrogen 27H, Creatinine 1.14, Estimat Glomerular Filtration Rate > 60, BUN /Creatinine Ratio 24, Glucose Level 91, Calcium Level 8.2L, Phosphorus Level 2.5 , Magnesium Level 1.8 08/24/18 12:35: Lab Scanned Report Transfusion Reaction Form Microbiology 08/21/18 MRSA Screen - Final, Complete MRSA not isolated KARLY BECKER MD Aug 24, 2018 20:59
[2018-08-24] MEDS: ACETAMINOPHEN 500 MG TAB (TYLENOL) PO PRN (21:38)
[2018-08-25 00:15] VITALS: BP 132/62
[2018-08-25 04:11] VITALS: BP 141/65
[2018-08-25 05:56] LABS: BASOPHILS % (AUTO) 0 % (0-10); EOSINOPHILS # (AUTO) 0.4 10^3/uL (0.0-0.3); EOSINOPHILS % (AUTO) 6 % (0-10); HEMATOCRIT 33 % (40-54); HEMOGLOBIN 10.9 G/DL (13.3-17.7); LYMPHOCYTES # (AUTO) 0.5 X 10^3 (1.0-4.0); LYMPHOCYTES % (AUTO) 7 % (12-44); MEAN CORPUSCULAR HGB CONC 33 G/DL (32-36); MEAN CORPUSCULAR VOLUME 90 FL (80-99); MEAN PLATELET VOLUME 11.3 FL (7.4-10.4); MONOCYTES # (AUTO) 1.2 X 10^3 (0.0-1.0); MONOCYTES % (AUTO) 17 % (0-12); NEUTROPHILS # (AUTO) 4.6 X 10^3 (1.8-7.8); NEUTROPHILS % (AUTO) 70 % (42-75); PLATELET COUNT 176 10^3/uL (130-400); RED CELL DISTRIBUTION WIDTH 14.8 % (10.0-14.5); WHITE BLOOD COUNT 6.6 10^3/uL (4.3-11.0)
[2018-08-25 05:59] LABS: MEAN CORPUSCULAR HEMOGLOBIN 29 PG (25-34)
[2018-08-25 06:13] LABS: BUN/CREATININE RATIO 26; CALCIUM 8.4 MG/DL (8.5-10.1); CARBON DIOXIDE 24 MMOL/L (21-32); CHLORIDE 110 MMOL/L (98-107); CREATININE SERUM 1.09 MG/DL (0.60-1.30); GFR ESTIMATED > 60; GLUCOSE 91 MG/DL (70-105); MAGNESIUM 1.7 MG/DL (1.8-2.4); PHOSPHORUS 3.3 MG/DL (2.3-4.7); POTASSIUM 3.9 MMOL/L (3.6-5.0); SODIUM 142 MMOL/L (135-145)
[2018-08-25] MEDS: PANTOPRAZOLE 40 MG (PROTONIX) TAB PO SCH (06:17)
[2018-08-25] MEDS: FERROUS SULF 325 MG (IRON) TAB PO SCH (06:17)
[2018-08-25] MEDS: LEVOTHYROXINE 50 MCG (LEVOTHROID) TAB PO SCH (06:17)
[2018-08-25] MEDS: POTASSIUM CL 10MEQ/50ML IVPB 50 ML IV SCH (06:19)
[2018-08-25] MEDS: MAGNESIUM 1 GM/100 ML IVPB 100 ML IV SCH (06:19)
[2018-08-25] MEDS: KCL 20 MEQ TAB (K-DUR) PO SCH (06:20)
--- NOTE | 2018-08-25 07:38 | Cardiology Progress Note ---
Subjective Date Seen by Provider: Aug 25, 2018 Time Seen by Provider: 07:37 Subjective/Events-last exam Patient is feeling better, awaiting placement Review of Systems General: No Chills, No Night Sweats, No Fatigue, No Malaise, No Appetite, No Other HEENT: No Head Aches, No Visual Changes, No Eye Pain, No Ear Pain, No Dysphasia , No Sinus Congestion, No Post Nasal Drip, No Sore Throat, No Other Pulmonary: No Dyspnea, No Cough, No Pleuritic Chest Pain, No Other Cardiovascular: No: Chest Pain, Palpitations, Orthopnea, Paroxysmal Noc. Dyspnea, Edema, Lt Headedness, Other Objective-Cardiology Exam Last Set of Vital Signs Vital Signs 08/22/18 08/25/18 11:00 04:11 Temp 97.5 Pulse 60 Resp 18 B/P (MAP) 141/65 (90) Pulse Ox 94 O2 Delivery Room Air O2 Flow Rate 3.00 Capillary Refill : Greater Than 3 Seconds I&O Intake and Output 08/25/18 00:00 Intake Total 1150 ml Output Total 1450 ml Balance -300 ml Intake Oral 1150 ml Output Urine Total 1450 ml # Bowel Movements 1 General: Alert, Oriented X3, Cooperative, No Acute Distress HEENT: Atraumatic, PERRLA Lungs: Clear to Auscultation, Normal Air Movement Heart: Regular Rate, Normal S1, Normal S2, No Murmurs Abdomen: Normal Bowel Sounds, Soft, No Tenderness, No Hepatosplenomegaly, No Masses Extremities: No Clubbing, No Cyanosis, No Edema, No Tenderness/Swelling Skin: No Rashes, No Breakdown, No Significant Lesion Neuro: Normal Gait, Normal Speech, Strength at 5/5 X4 Ext, Normal Tone, Sensation Intact Psych/Mental Status: Mental Status NL, Mood NL Results Lab Laboratory Tests 08/25/18 05:38 A/P-Cardiology Admission Diagnosis peripheral arterial disease Nonhealing foot ulcer Coronary artery disease Hypotensive shock Assessment/Plan Status post hypotension secondary to bleeding. Improved at this time. Blood pressure is stable. Continue to monitor Generalized weakness, sustained a fall at home, patient does not have the ability to take care of himself at home, will consult psychotherapist social worker and discussed assisted-living options Peripheral arterial disease, claudication, lower extremity pain with resting foot pain, nonhealing ulcer on the right heel, abnormal CLARI, status post balloon angioplasty to the posterior tibial artery and peroneal artery on the right, balloon angioplasty then stent deployment to the right SFA. Reporting significant improvement in his pain. Large bleed from the left groin successful balloon angioplasty and sealing of the bleed through balloon in the left iliac and common femoral artery. Coronary artery disease, history of cardiac catheterization with multiple stents in 2009, using 2 stents to the right coronary artery 3.0x12 mm to the proximal right coronary artery Promus stent, 2.5x28 mm Promus stent to the distal right coronary artery. 2.5x12 mm Promus stent to the LAD. Currently asymptomatic, continue to monitor. Most recent stress test November 2017 revealed no ischemia or infarct. continue to monitor Hypertension, restarted home medication, monitor blood pressure Hyperlipidemia. continue to monitor lipids Chronic renal insufficiency, improved with aggressive hydration received a total of 100 mL of contrast. Pulmonary hypertension,improved, last echocardiogram was done in December 2017 showing pulmonary artery pressure of 50 mmHg. Moderate bilateral carotid stenosis, last ultrasound was done in March 2018. Venous insufficiency- Patient had small saphenous vein chronic insufficiency with reflux time more than 4.9 seconds, he has chronic venous stasis changes on the right lower extremity. Now has nonhealing wound to RLE. Management as discussed above. History of tobaccoism, has been abstinent since 2009. Encouraged to continue with smoking cessation. Hypothyroidism, maintained on Synthroid 50 mcg daily, managed by Dr. Keene. GHULAM PARKER MD Aug 25, 2018 07:38
[2018-08-25 08:00] VITALS: BP 152/73
[2018-08-25] MEDS: LOSARTAN 50 MG (COZAAR) TAB PO SCH (08:06)
[2018-08-25] MEDS: CLOPIDOGREL 75 MG (PLAVIX) TABLET PO SCH (08:06)
[2018-08-25] MEDS: DOCUSATE SODIUM 100 MG (COLACE) CAP PO SCH ×2 (08:06→20:36)
[2018-08-25] MEDS: ASPIRIN E.C. 81 MG (ECOTRIN) TAB PO SCH (08:06)
[2018-08-25] MEDS: ATORVASTATIN 20 MG (LIPITOR) TABLET PO SCH (08:06)
[2018-08-25] MEDS: TAMSULOSIN 0.4 MG (FLOMAX) CAP PO SCH (08:06)
[2018-08-25] MEDS ORDERED: SILVASORB GEL 1.5 OZ TP SCH (09:00)
--- NOTE | 2018-08-25 09:01 | NUR ---
CM/SS. Patient and friend Moni Moore have selected [facility] and Moni coordinated with RN/Azra to come visit patient today for assessment/interview. Receivable Executive sent continuum of care information today for her review prior to visit. Patient will be accepted with Medicaid, [facility] to assist with establishing HCBS Waiver.
--- NOTE | 2018-08-25 09:36 | Physical Therapy Daily Note ---
PT Daily Note-Current Subjective Pt agrees to PT. Says that he is ready to show off how well he can amb. Pain Numeric Pain Scale: 0-No Pain Location: No Pain Reported Mental Status Patient Orientation: Normal For Age Transfers Therapy Code Descriptions/Definitions Functional [place] Measure: 0=Not Assessed/NA 4=Minimal Assistance 1=Total Assistance 5=Supervision or Setup 2=Maximal Assistance 6=Modified [place] 3=Moderate Assistance 7=Complete [place] Therapy Quality Codes: 6 Independent with activity with or without an assistive device 5 Patient requires set up or clean up by helper. Patient completes activity by themselves 4 Supervision or touching assist (CGA). [place] provide cues , steadying assist 3 The helper provides less than half the effort to complete the activity 2 The helper provides more than half the effort to complete the activity 1 Dependent. The helper does all the effort to complete an activity 7 Patient refused to complete or attempt activity 9 The patient did not perform the activity before the current illness or injury 88 Not attempted due to Medical conditions or safety concerns Transfers (B, C, W/C) (FIM): 4 Scootin Rollin Supine to/from Sit: 5 Sit to/from Stand: 5 Bed to/from Chair: 5 Pt requires VC for safety during transfers. Weight Bearing Right Lower Extremity: Right Weight Bearing/Tolerated Left Lower Extremity: Left Weight Bearing/Tolerated Gait Training Gait (FIM): 3 Distance (FIM): 3=150 ft Distance: >500' Gait Level of Assist: 5 Gait Persons Needed: 1 Gait Assistive Device: FWW Exercises Seated Therapy Exercises: Ankle pumps, Long arc quads, Hip flexion Seated Reps: 15 Assessment Current Status: Fair Progress Pt was able to amb >500' FWW with SBA. Pt required VC of FWW placement when standing and during maneuvers to chair for safety. Pt was very agreeable to ex. and reported he will perform those for his homework. Pt needs were met. PT Short Term Goals Short Term Goals Time Frame: Aug 29, 2018 Transfers (B,C,W/C) (FIM): 6 Gait (FIM): 6 Distance (FIM): 3=150 ft Gait Distance Comment: 350' Gait Level of Assist: 6 Gait Assistive Device: FWW PT Plan Problem List Problem List: Activity Tolerance, Functional Strength, Safety Treatment/Plan Treatment Plan: Continue Plan of Care Treatment Plan: Education, Functional Activity Taisha, Functional Strength, Safety, Therapeutic Exercise Treatment Duration: Aug 29, 2018 Frequency: 5 times per week Estimated Hrs Per Day: .25 hour per day Patient and/or Family Agrees t: Yes Time/GCodes Time In: 910 Time Out: 927 Total Billed Treatment Time: 17 Total Billed Treatment 1 visit FA 17 min NIRANJAN OZUNA PT Aug 25, 2018 09:36
--- NOTE | 2018-08-25 10:17 | NUR ---
prior to a.m. medications pulse was 76 bpm, and b/p was 152/73.
[2018-08-25 12:00] VITALS: BP 131/64
--- NOTE | 2018-08-25 13:40 | NUR ---
Joint visit with Azra, telegraph office manager at [facility]. Pt is from [facility] and lives in [place], [place]. 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 Pt shared he lives with a friend, Moni, in her brother's home. Pt describes his relationship as that of caregiver and friend. States he and Moni routinely share conversation and meals. Pt said that in his role of caregiver he eventually neglected his own care, but hopes to return to the normality of independence. Pt understands that Moni's brother intends to sell the house. The pt describes his belongings to be of intellectual and sentimental worth, some of which have been moved by the brother in order to prepare the house for showing. Pt said he is concerned about more of his belongings being moved to the garage, etc., and dislikes the possibility of items being lost, damaged or disorganized. Pt welcomes follow up visit. This Surveillance Observer closed the door for pt's privacy before RITA Dodge and Azra dressed pt's leg bandages.
[2018-08-25 16:00] VITALS: BP 122/58
[2018-08-25 20:00] VITALS: BP 143/64
[2018-08-25] MEDS: ACETAMINOPHEN 500 MG TAB (TYLENOL) PO PRN (20:34)
[2018-08-26] VITALS: BP 110/64
[2018-08-26 04:00] VITALS: BP 125/63
[2018-08-26] MEDS: ACETAMINOPHEN 500 MG TAB (TYLENOL) PO PRN (04:41)
[2018-08-26 05:58] LABS: BASOPHILS % (AUTO) 0 % (0-10); EOSINOPHILS # (AUTO) 0.4 10^3/uL (0.0-0.3); EOSINOPHILS % (AUTO) 6 % (0-10); HEMATOCRIT 33 % (40-54); HEMOGLOBIN 10.5 G/DL (13.3-17.7); LYMPHOCYTES # (AUTO) 0.6 X 10^3 (1.0-4.0); LYMPHOCYTES % (AUTO) 8 % (12-44); MEAN CORPUSCULAR HEMOGLOBIN 29 PG (25-34); MEAN CORPUSCULAR HGB CONC 32 G/DL (32-36); MEAN CORPUSCULAR VOLUME 90 FL (80-99); MEAN PLATELET VOLUME 11.1 FL (7.4-10.4); MONOCYTES % (AUTO) 15 % (0-12); NEUTROPHILS # (AUTO) 4.6 X 10^3 (1.8-7.8); NEUTROPHILS % (AUTO) 70 % (42-75); PLATELET COUNT 193 10^3/uL (130-400); RED BLOOD COUNT 3.67 10^6/uL (4.35-5.85); RED CELL DISTRIBUTION WIDTH 14.3 % (10.0-14.5); WHITE BLOOD COUNT 6.6 10^3/uL (4.3-11.0)
[2018-08-26] MEDS: MAGNESIUM 1 GM/100 ML IVPB 100 ML IV SCH (06:00)
[2018-08-26] MEDS: POTASSIUM CL 10MEQ/50ML IVPB 50 ML IV SCH (06:00)
[2018-08-26] MEDS: KCL 20 MEQ TAB (K-DUR) PO SCH (06:00)
[2018-08-26] MEDS: LEVOTHYROXINE 50 MCG (LEVOTHROID) TAB PO SCH (06:23)
[2018-08-26] MEDS: FERROUS SULF 325 MG (IRON) TAB PO SCH (06:23)
[2018-08-26] MEDS: PANTOPRAZOLE 40 MG (PROTONIX) TAB PO SCH (06:24)
[2018-08-26 06:31] LABS: BUN/CREATININE RATIO 26; CALCIUM 8.4 MG/DL (8.5-10.1); CARBON DIOXIDE 22 MMOL/L (21-32); CHLORIDE 111 MMOL/L (98-107); GFR ESTIMATED > 60; GLUCOSE 86 MG/DL (70-105); MAGNESIUM 1.8 MG/DL (1.8-2.4); SODIUM 140 MMOL/L (135-145)
[2018-08-26 08:00] VITALS: BP 142/69
[2018-08-26] MEDS ORDERED: SILVASORB GEL 1.5 OZ TP SCH (09:00)
[2018-08-26] MEDS: CLOPIDOGREL 75 MG (PLAVIX) TABLET PO SCH (09:25)
[2018-08-26] MEDS: ATORVASTATIN 20 MG (LIPITOR) TABLET PO SCH (09:26)
[2018-08-26] MEDS: TAMSULOSIN 0.4 MG (FLOMAX) CAP PO SCH (09:26)
[2018-08-26] MEDS: LOSARTAN 50 MG (COZAAR) TAB PO SCH (09:26)
[2018-08-26] MEDS: DOCUSATE SODIUM 100 MG (COLACE) CAP PO SCH (09:27)
[2018-08-26] MEDS: ASPIRIN E.C. 81 MG (ECOTRIN) TAB PO SCH (09:27)
--- NOTE | 2018-08-26 09:27 | Physical Therapy Daily Note ---
PT Daily Note-Current Subjective Pt. pleasant and talkative, sharing that his left side is still painful but he is slowly making progress. Agrees to Rx Pain Numeric Pain Scale: 3 Location: Left Location Body Site: Abdomen (flank) Pain Description: Tightness Mental Status Patient Orientation: Normal For Age Transfers Therapy Code Descriptions/Definitions Functional [place] Measure: 0=Not Assessed/NA 4=Minimal Assistance 1=Total Assistance 5=Supervision or Setup 2=Maximal Assistance 6=Modified [place] 3=Moderate Assistance 7=Complete [place] Therapy Quality Codes: 6 Independent with activity with or without an assistive device 5 Patient requires set up or clean up by helper. Patient completes activity by themselves 4 Supervision or touching assist (CGA). [place] provide cues , steadying assist 3 The helper provides less than half the effort to complete the activity 2 The helper provides more than half the effort to complete the activity 1 Dependent. The helper does all the effort to complete an activity 7 Patient refused to complete or attempt activity 9 The patient did not perform the activity before the current illness or injury 88 Not attempted due to Medical conditions or safety concerns sup to side to sit SBA and instruction in use of rolling log roll and use of hands and UEs at rails etc for safe TRF to EOB all SBA. sit to stand SBA Weight Bearing Right Lower Extremity: Right Weight Bearing/Tolerated Left Lower Extremity: Left Weight Bearing/Tolerated Gait Training Distance (FIM): 3=150 ft (450) Gait Assistive Device: FWW slow, SBA to CGA 450 feet no LOB, head down unless instructed to correct, some fatigue, Exercises Supine Ex: Bridging, Ankle pumps, Rolling, Heel Slides, Scooting, Straight leg raise, Hip abd/add Supine Reps: 12 Seated Therapy Exercises: Ankle pumps, Sit to stand, Long arc quads Seated Reps: 8 Treatments up in recliner after with LEs elevated, rodriguez at hand, needs met Assessment Current Status: Good Progress PT Short Term Goals Short Term Goals Time Frame: Aug 29, 2018 Transfers (B,C,W/C) (FIM): 6 Gait (FIM): 6 Distance (FIM): 3=150 ft Gait Distance Comment: 350' Gait Level of Assist: 6 Gait Assistive Device: FWW PT Plan Treatment/Plan Treatment Plan: Continue Plan of Care Treatment Plan: Education, Functional Activity Taisha, Functional Strength, Safety, Therapeutic Exercise Treatment Duration: Aug 29, 2018 Frequency: 5 times per week Estimated Hrs Per Day: .25 hour per day Patient and/or Family Agrees t: Yes Safety Risks/Education Patient Education: Gait Training, Transfer Techniques, Correct Positioning, Safety Issues Teaching Recipient: Patient Teaching Methods: Demonstration, Discussion Response to Teaching: Verbalize Understanding, Return Demonstration, Reinforcement Needed Time/GCodes Time In: 835 Time Out: 900 Total Billed Treatment Time: 25 Total Billed Treatment 1,EX10m,GT15m G Codes Necessary: ESTEFANI Kumar C PROGRAMMER Aug 26, 2018 09:27
--- NOTE | 2018-08-26 09:56 | Cardiology Progress Note ---
Subjective Date Seen by Provider: Aug 26, 2018 Time Seen by Provider: 09:51 Subjective/Events-last exam Patient is sitting up in chair, complaining of some left groin discomfort. Denies any chest pain or dyspnea. Review of Systems General: No Night Sweats, No Fatigue, No Malaise HEENT: No Visual Changes, No Dysphasia Pulmonary: No Dyspnea, No Cough Cardiovascular: No: Chest Pain, Palpitations, Paroxysmal Noc. Dyspnea, Edema Gastrointestinal: No: Nausea, Vomiting, Diarrhea, Constipation Genitourinary: No Dysuria, No Frequency Musculoskeletal: No: neck pain, back pain Neurological: No: Weakness, Change in speech, Confusion Objective-Cardiology Exam Last Set of Vital Signs Vital Signs 08/22/18 08/26/18 08/26/18 11:00 08:00 09:00 Temp 98.0 Pulse 76 Resp 22 B/P (MAP) 142/69 (93) Pulse Ox 95 O2 Delivery Room Air O2 Flow Rate 3.00 Capillary Refill : Greater Than 3 Seconds I&O Intake and Output 08/26/18 00:00 Intake Total 1180 ml Output Total 850 ml Balance 330 ml Intake Oral 1180 ml Output Urine Total 850 ml General: Alert, Oriented X3, Cooperative, No Acute Distress HEENT: Atraumatic, PERRLA Lungs: Clear to Auscultation, Normal Air Movement Heart: Regular Rate, Normal S1, Normal S2, No Murmurs Abdomen: Normal Bowel Sounds, Soft, No Tenderness, No Hepatosplenomegaly, No Masses Extremities: No Clubbing, No Cyanosis, No Edema, No Tenderness/Swelling Skin: No Rashes, No Breakdown, No Significant Lesion Neuro: Normal Gait, Normal Speech, Strength at 5/5 X4 Ext, Normal Tone, Sensation Intact Psych/Mental Status: Mental Status NL, Mood NL Results Lab Laboratory Tests 08/26/18 05:30 A/P-Cardiology Admission Diagnosis peripheral arterial disease Nonhealing foot ulcer Coronary artery disease Hypotensive shock Assessment/Plan Status post hypotension secondary to bleeding. Improved at this time. Blood pressure is stable. Continue to monitor Generalized weakness, sustained a fall at home, patient does not have the ability to take care of himself at home, manager social consulted and discussed assisted-living options Peripheral arterial disease, claudication, lower extremity pain with resting foot pain, nonhealing ulcer on the right heel, abnormal CLARI, status post balloon angioplasty to the posterior tibial artery and peroneal artery on the right, balloon angioplasty then stent deployment to the right SFA. Reporting significant improvement in his pain. Large bleed from the left groin successful balloon angioplasty and sealing of the bleed through balloon in the left iliac and common femoral artery. Coronary artery disease, history of cardiac catheterization with multiple stents in 2009, using 2 stents to the right coronary artery 3.0x12 mm to the proximal right coronary artery Promus stent, 2.5x28 mm Promus stent to the distal right coronary artery. 2.5x12 mm Promus stent to the LAD. Currently asymptomatic, continue to monitor. Most recent stress test November 2017 revealed no ischemia or infarct. continue to monitor Hypertension, restarted home medication, monitor blood pressure Hyperlipidemia. continue to monitor lipids Chronic renal insufficiency, improved with aggressive hydration received a total of 100 mL of contrast. Pulmonary hypertension,improved, last echocardiogram was done in December 2017 showing pulmonary artery pressure of 50 mmHg. Moderate bilateral carotid stenosis, last ultrasound was done in March 2018. Venous insufficiency- Patient had small saphenous vein chronic insufficiency with reflux time more than 4.9 seconds, he has chronic venous stasis changes on the right lower extremity. Now has nonhealing wound to RLE. Management as discussed above. History of tobaccoism, has been abstinent since 2009. Encouraged to continue with smoking cessation. Hypothyroidism, maintained on Synthroid 50 mcg daily, managed by Dr. Keene. Clinical Quality Measures DVT/VTE Risk/Contraindication: Risk Factor Score Per Nursin RFS Level Per Nursing on Admit: 4+=Very High UTE MISHRA Aug 26, 2018 09:56
[2018-08-26] MEDS ORDERED: CLOP75TA28 PO (10:11)
[2018-08-26] MEDS ORDERED: ASPI-983 PO (10:11)
[2018-08-26] MEDS ORDERED: FERR325T18 PO (10:11)
--- NOTE | 2018-08-26 10:12 | Progress Note-Hospitalist ---
Objective Exam Vital Signs Vital Signs Date Time Temp Pulse Resp B/P (MAP) Pulse Ox O2 Delivery O2 Flow Rate FiO2 08/26/18 09:00 Room Air 08/26/18 08:00 98.0 76 22 142/69 (93) 95 08/22/18 11:00 3.00 Capillary Refill : Greater Than 3 Seconds Results/Procedures Lab Laboratory Tests 08/26/18 05:30 Patient resulted labs reviewed. Clinical Quality Measures DVT/VTE Risk/Contraindication: Risk Factor Score Per Nursin RFS Level Per Nursing on Admit: 4+=Very High JOSE BURROUGHS DO Aug 26, 2018 10:12
--- NOTE | 2018-08-26 11:15 | NUR ---
Spoke with Dr. Cait Hines's PA concerning discharge planning. wheel worker notified and will contact PA.
--- NOTE | 2018-08-26 11:21 | Discharge Summary-Hospitalist ---
Diagnosis/Chief Complaint Date of Admission Aug 22, 2018 at 10:57 Date of Discharge Discharge Date: Aug 26, 2018 Discharge Diagnosis (1) Hypovolemic shock Status: Resolved Assessment & Plan: 2/2 blood loss following cath and hematoma s/p 4 units pRBCs Now off dopamine Bp stable today (2) PAD (peripheral artery disease) Status: Chronic Assessment & Plan: Under peripheral angiography yesterday On aspirin and plavix s/p stent placement and balloon x2 (3) CAD (coronary artery disease) Status: Chronic Assessment & Plan: history of CAD with history of stents x2 in past (4) Hypothyroidism Status: Chronic Assessment & Plan: Continue home supplement (5) Discharge planning issues Status: Resolved Assessment & Plan: Currently has HH for Mondays and Friday Will likely need more assistance upon discharge Consider IRU vs SNF Discharge Summary Discharge Physical Exam Allergies: Coded Allergies: No Known Drug Allergies (Unverified , 09/04/09) Vitals & I&Os Vital Signs Date Time Temp Pulse Resp B/P (MAP) Pulse Ox O2 Delivery O2 Flow Rate FiO2 08/26/18 16:16 67 20 161/71 95 Room Air 3.00 08/26/18 12:00 98.0 General Appearance: No Apparent Distress, WD/WN, Chronically ill Respiratory: Chest Non Tender, Lungs Clear, Normal Breath Sounds, No Accessory Muscle Use, No Respiratory Distress Cardiovascular: Regular Rate, Rhythm, No Edema, No Gallop, No JVD, No Murmur, Normal Peripheral Pulses Extremity: Swelling (right leg with venous stasis changes) Neurologic/Psychiatric: Alert, Oriented x3, No Motor/Sensory Deficits, Normal Mood/Affect Hospital Course Hospital course: This is a gentleman then underwent cardiac catheterization and had an acute onset of blood loss requiring transfusions and close monitoring for hypovolemic shock while hospitalized in the ICU. 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 Wound care evaluated the patient for complex wounds and Dr. Shepherd expertise was appreciated. Overall he felt well enough and was stable and was able to be [facility] in [facility] and will continue close monitoring and follow-up with Dr. Chavira. Labs (last 24 hrs) Laboratory Tests 08/26/18 05:30: White Blood Count 6.6, Red Blood Count 3.67L, Hemoglobin 10.5L, Hematocrit 33L, Mean Corpuscular Volume 90, Mean Corpuscular Hemoglobin 29, Mean Corpuscular Hemoglobin Concent 32, Red Cell Distribution Width 14.3, Platelet Count 193, Mean Platelet Volume 11.1H, Neutrophils (%) (Auto) 70, Lymphocytes (%) (Auto) 8L , Monocytes (%) (Auto) 15H, Eosinophils (%) (Auto) 6, Basophils (%) (Auto) 0, Neutrophils # (Auto) 4.6, Lymphocytes # (Auto) 0.6L, Monocytes # (Auto) 1.0, Eosinophils # (Auto) 0.4H, Basophils # (Auto) 0.0, Sodium Level 140, Potassium Level 4.0, Chloride Level 111H, Carbon Dioxide Level 22, Anion Gap 7, Blood Urea Nitrogen 29H, Creatinine 1.10, Estimat Glomerular Filtration Rate > 60, BUN /Creatinine Ratio 26, Glucose Level 86, Calcium Level 8.4L, Phosphorus Level 3.0 , Magnesium Level 1.8 Microbiology 08/21/18 MRSA Screen - Final, Complete MRSA not isolated Patient resulted labs reviewed. Pending Labs Discussion & Recommendations Discharge Planning: <30 minutes discharge planning Discharge Home Medications: Active Scripts Active Aspirin EC (Aspirin) 81 Mg Tablet.dr 81 Mg PO DAILY 30 Days Clopidogrel (Clopidogrel Bisulfate) 75 Mg Tablet 75 Mg PO DAILY 30 Days Ferrous Sulfate 325 Mg Tablet 325 Mg PO DAILY@0700 30 Days Reported Losartan Potassium 50 Mg Tablet 50 Mg PO DAILY Metoprolol Tartrate 25 Mg Tablet 12.5 Mg PO BID TAKES 1/2 (25MG) TABLET Levothyroxine Sodium 50 Mcg Tablet 50 Mcg PO HS Vitamin D3 (Cholecalciferol (Vitamin D3)) 2,000 Unit Capsule 2,000 Unit PO DAILY BaubleBar Capsule (l Gasseri/B Bifidum/B Longum) 1 Each Capsule 1 Cap PO 1800 Omeprazole 40 Mg Capsule.dr 40 Mg PO DAILY Tamsulosin HCl 0.4 Mg Cap.er.24h 0.4 Mg PO 1200 Atorvastatin Calcium 20 Mg Tablet 20 Mg PO HS Instructions to patient/family Please see electronic discharge instructions given to patient. Clinical Quality Measures DVT/VTE Risk/Contraindication: Risk Factor Score Per Nursin RFS Level Per Nursing on Admit: 4+=Very High Problem Qualifiers (1) Hypothyroidism: Hypothyroidism type: unspecified Qualified Codes: E03.9 - Hypothyroidism, unspecified JOSE BURROUGHS DO Aug 26, 2018 11:21
[2018-08-26 12:00] VITALS: BP 161/71
--- NOTE | 2018-08-26 13:28 | Cardiology Progress Note ---
Subjective Date Seen by Provider: Aug 26, 2018 Time Seen by Provider: 13:28 Subjective/Events-last exam patient is sitting in a chair, feeling better. No new complaint Review of Systems General: No Chills, No Night Sweats, No Fatigue, No Malaise, No Appetite, No Other HEENT: No Head Aches, No Visual Changes, No Eye Pain, No Ear Pain, No Dysphasia , No Sinus Congestion, No Post Nasal Drip, No Sore Throat, No Other Pulmonary: No Dyspnea, No Cough, No Pleuritic Chest Pain, No Other Cardiovascular: No: Chest Pain, Palpitations, Orthopnea, Paroxysmal Noc. Dyspnea, Edema, Lt Headedness, Other Objective-Cardiology Exam Last Set of Vital Signs Vital Signs 08/22/18 08/26/18 11:00 12:00 Temp 98.0 Pulse 67 Resp 20 B/P (MAP) 161/71 (101) Pulse Ox 95 O2 Delivery Room Air O2 Flow Rate 3.00 Capillary Refill : Greater Than 3 Seconds I&O Intake and Output 08/26/18 00:00 Intake Total 1180 ml Output Total 850 ml Balance 330 ml Intake Oral 1180 ml Output Urine Total 850 ml General: Alert, Oriented X3, Cooperative, No Acute Distress HEENT: Atraumatic, PERRLA Neck: Supple Lungs: Clear to Auscultation, Normal Air Movement Heart: Regular Rate, Normal S1, Normal S2, No Murmurs Abdomen: Normal Bowel Sounds, Soft, No Tenderness, No Hepatosplenomegaly, No Masses Extremities: No Clubbing, No Cyanosis, No Edema, No Tenderness/Swelling Skin: No Rashes, No Breakdown, No Significant Lesion Neuro: Normal Gait, Normal Speech, Strength at 5/5 X4 Ext, Normal Tone, Sensation Intact Psych/Mental Status: Mental Status NL, Mood NL Results Lab Laboratory Tests 08/26/18 05:30 A/P-Cardiology Admission Diagnosis peripheral arterial disease Nonhealing foot ulcer Coronary artery disease Hypotensive shock Assessment/Plan Status post hypotension, better now. Continue to monitor Generalized weakness, sustained a fall at home, patient does not have the ability to take care of himself at home, social services manager consulted and discussed assisted-living options Peripheral arterial disease, claudication, lower extremity pain with resting foot pain, nonhealing ulcer on the right heel, abnormal CLARI, status post balloon angioplasty to the posterior tibial artery and peroneal artery on the right, balloon angioplasty then stent deployment to the right SFA. Reporting significant improvement in his pain. Large bleed from the left groin successful balloon angioplasty and sealing of the bleed through balloon in the left iliac and common femoral artery. Coronary artery disease, history of cardiac catheterization with multiple stents in 2009, using 2 stents to the right coronary artery 3.0x12 mm to the proximal right coronary artery Promus stent, 2.5x28 mm Promus stent to the distal right coronary artery. 2.5x12 mm Promus stent to the LAD. Currently asymptomatic, continue to monitor. Most recent stress test November 2017 revealed no ischemia or infarct. continue to monitor Hypertension, restarted home medication, monitor blood pressure Hyperlipidemia. continue to monitor lipids Chronic renal insufficiency, improved with aggressive hydration received a total of 100 mL of contrast. Pulmonary hypertension,improved, last echocardiogram was done in December 2017 showing pulmonary artery pressure of 50 mmHg. Moderate bilateral carotid stenosis, last ultrasound was done in March 2018. Venous insufficiency- Patient had small saphenous vein chronic insufficiency with reflux time more than 4.9 seconds, he has chronic venous stasis changes on the right lower extremity. Now has nonhealing wound to RLE. Management as discussed above. History of tobaccoism, has been abstinent since 2009. Encouraged to continue with smoking cessation. Hypothyroidism, maintained on Synthroid 50 mcg daily, managed by Dr. Keene. Clinical Quality Measures DVT/VTE Risk/Contraindication: Risk Factor Score Per Nursin RFS Level Per Nursing on Admit: 4+=Very High GHULAM PARKER MD Aug 26, 2018 13:28
--- NOTE | 2018-08-26 15:36 | NUR ---
CM/SS, final discharge planning. Patient will admit to [facility] today, [facility] staff will coordinate picking tech directly with Unit RN due to late arrangements on their part. CARE Assessment was deferred due to anticipated stay <30 days. Faxed orders to [facility] acting admissions coord. Prepared continuum of care packet to accompany patient. Visited with patient then friend Sally Moore by phone to update fully of plan. [facility] could not satisfactorily complete the admission directly to assisted living because of the need for daily wound care. [facility] RN could do M-F, but would have to specially staff weekends which they could not accomplish. Patient will transition to [facility] once Sally and her brother get patient's room furnished and set up. [employer] Maintenance provided what was requested from [facility]. Patient and Sally very appreciative of assistance and coordination of placement.
--- NOTE | 2018-08-26 15:53 | NUR ---
CM/SS. Clarifying, patient has Medicaid only, no skilled benefits to access. He will enter healthcare [facility] care, will transition to assisted living, both at [facility].
[2018-08-26 16:16] VITALS: BP 161/71
--- NOTE | 2018-08-26 16:28 | NUR ---
BILATERAL HEPARIN LOCKS REMOVED FROM BILATERAL FOREARMS, CATHETER TIP WAS INTACT AT TIME OF REMOVAL. TRIED TO CALL REPORT AGAIN TO THE [facility] AND [facility] ANSWERED THE PHONE TOOK MY CELL NUMBER THE NURSE WAS STILL NOT AVAILABLE FOR REPORT. THIS RN ASKED FOR THE NURSE TO CALL THIS RN BACK. THIS RN WILL WAIT FOR THE NURSE TO CALL AND RECEIVE REPORT.
--- NOTE | 2018-08-26 17:03 | NUR ---
REPORT GIVEN TO CAROL ANN NURSE WHO WILL ASSUME CARE OF THIS PATIENT AT [facility].
--- OUTSIDE RECORDS SUMMARY | 2018-08-27 12:37 | XMS REPORT | Continuity of Care Document ---
Author Author [facility] Organization [facility] Address Unknown Phone Unavailable Allergies Active Description Code Type Severity Reaction Onset Reported/Identified Relationship to Patient Clinical Status Yes No Known Drug Allergies [id number] Drug Allergy Mild N/A 09/04/2009 Medications There [...] MD Ot I25.10 ATHSCL HEART DISEASE OF [place] CORONARY 04/08/2016 GHULAM PARKER MD Ot R06.02 SHORTNESS OF BREATH 04/08/2016 GHULAM PARKER MD Ot E03.9 HYPOTHYROIDISM, UNSPECIFIED 04/08/2016 GHULAM PARKER MD Ot E78.2 MIXED HYPERLIPIDEMIA 04/08/2016 GHULAM PARKER MD Ot I10 ESSENTIAL (PRIMARY) HYPERTENSION 04/08/2016 GHULAM PARKER MD Ot I25.10 ATHSCL HEART DISEASE OF [place] CORONARY 04/08/2016 GHULAM PARKER MD Ot R06.02 SHORTNESS OF BREATH 05/02/2016 GHULAM PARKER MD Ot E03.9 HYPOTHYROIDISM, UNSPECIFIED 05/02/2016 GHULAM PARKER MD Ot E78.2 MIXED HYPERLIPIDEMIA 05/02/2016 GHULAM PARKER MD J Ot I10 ESSENTIAL (PRIMARY) HYPERTENSION 05/02/2016 GHULAM PARKER MD Ot I25.10 ATHSCL HEART DISEASE OF [place] CORONARY 05/02/2016 GHULAM PARKER MD Ot R06.02 [...] MD Ot I25.10 ATHSCL HEART DISEASE OF [place] CORONARY 12/11/2017 GHULAM PARKER MD Ot R06.02 [...] PARKER MD Ot E78.2 MIXED HYPERLIPIDEMIA 12/15/2017 GHULAM PARKER MD Ot I10 ESSENTIAL (PRIMARY) HYPERTENSION 12/15/2017 GHULAM PARKER MD Ot I25.10 ATHSCL HEART DISEASE OF [place] CORONARY 12/15/2017 GHULAM PARKER MD Ot R06.02 SHORTNESS OF BREATH 12/15/2017 GHULAM PARKER MD Ot E03.9 HYPOTHYROIDISM, UNSPECIFIED 12/15/2017 GHULAM PARKER MD Ot E78.5 HYPERLIPIDEMIA, UNSPECIFIED 12/15/2017 GHULAM PARKER MD Ot I10 ESSENTIAL (PRIMARY) HYPERTENSION 12/15/2017 GHULAM PARKER MD Ot I25.10 ATHSCL HEART DISEASE OF [place] CORONARY 12/15/2017 GHULAM PARKER MD Ot Z72.0 TOBACCO USE 01/01/2018 GHULAM PARKER MD Ot E03.9 HYPOTHYROIDISM, UNSPECIFIED 01/01/2018 GHULAM PARKER MD Ot E78.5 HYPERLIPIDEMIA, UNSPECIFIED 01/01/2018 GHULAM PARKER MD Ot I10 ESSENTIAL (PRIMARY) HYPERTENSION 01/01/2018 GHULAM PARKER MD Ot I25.10 ATHSCL HEART DISEASE OF [place] CORONARY 01/01/2018 GHULAM PARKER MD Ot Z72.0 TOBACCO USE 01/05/2018 GHULAM PARKER MD Ot E03.9 HYPOTHYROIDISM, UNSPECIFIED 01/05/2018 GHULAM PARKER MD Ot E78.5 HYPERLIPIDEMIA, UNSPECIFIED 01/05/2018 GHULAM PARKER MD J Ot I10 ESSENTIAL (PRIMARY) HYPERTENSION 01/05/2018 GHULAM PARKER MD Ot I25.10 ATHSCL HEART DISEASE OF [place] CORONARY 01/05/2018 GHULAM PARKER MD Ot I34.0 NONRHEUMATIC MITRAL (VALVE) INSUFFICIENC 01/08/2018 GHULAM PARKER MD Ot E03.9 HYPOTHYROIDISM, UNSPECIFIED 01/08/2018 GHULAM PARKER MD Ot E78.5 HYPERLIPIDEMIA, UNSPECIFIED 01/08/2018 GHULAM PARKER MD Ot I10 ESSENTIAL (PRIMARY) HYPERTENSION 01/08/2018 GHULAM PARKER MD Ot I25.10 ATHSCL HEART DISEASE OF [place] CORONARY 01/08/2018 GHULAM PARKER MD Ot I34.0 NONRHEUMATIC MITRAL (VALVE) INSUFFICIENC 01/16/2018 GHULAM PARKER MD Ot E03.9 HYPOTHYROIDISM, UNSPECIFIED 01/16/2018 GHULAM PARKER MD Ot E78.5 HYPERLIPIDEMIA, UNSPECIFIED 01/16/2018 GHULAM PARKER MD Ot I10 ESSENTIAL (PRIMARY) HYPERTENSION 01/16/2018 GHULAM PARKER MD Ot I25.10 ATHSCL HEART DISEASE OF [place] CORONARY 01/16/2018 GHULAM PARKER MD Ot I34.0 [...] 08/21/2018 KARLY BECKER MD, Ot 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 08/21/2018 KARLY BECKER MD Ot 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 08/21/2018 KARLY BECKER MD, Ot L97.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 08/22/2018 KARLY BECKER MD, Ot G60.9 HEREDITARY AND IDIOPATHIC NEUROPATHY, UN 08/22/2018 KARLY BECKER MD, Ot 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 08/22/2018 KARLY BECKER MD, Ot 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 08/22/2018 KARLY BECKER MD, Ot L97.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 08/25/2018 RADHA WRIGHT MD, Ot G60.9 HEREDITARY AND IDIOPATHIC NEUROPATHY, UN 08/25/2018 RADHA WRIGHT MD, Ot I73.9 PERIPHERAL VASCULAR DISEASE, UNSPECIFIED 08/25/2018 RADHA WRIGHT MD, Ot I87.2 VENOUS INSUFFICIENCY (CHRONIC) (PERIPHER 08/25/2018 RADHA WRIGHT MD, Ot 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 08/25/2018 RADHA WRIGHT MD, Ot L97.512 NON-PRS CHRONIC ULCER OTH [...] VLDL measurement (mass/volume) 21 mg/ dL 5-40 Methicillin resistant Staphylococcus aureus (MRSA) screening culture - 09:15 Methicillin resistant Staphylococcus aureus (MRSA) screening culture NEG NRG RED CELLS LEUKO REDUCED AS1 - 08/21/18 15:15 RED CELLS [place] REDUCED AS1 TRANSFUSED 08/21/18 1607 NRG Blood type T Indirect antibody screen panel - 08/21/18 15:15 ABO+Rh group AP NRG Transfusion band number [id number] NRG Blood group antibody screen NEGATIVE NRG [...] - 08/22/18 03:16 Magnesium 1.7 mg/dL 1.8-2.4 Complete blood count (CBC) with automated white blood cell (WBC) differential - 08/23/18 03:30 Blood leukocytes automated count (number/volume) 8.3 10*3/uL 4.3-11.0 Blood erythrocytes automated count (number/volume) 3.63 10*6/uL 4.35-5.85 Venous blood hemoglobin measurement (mass/volume) 10.9 g/dL 13.3-17.7 Blood hematocrit (volume fraction) 32 % 40-54 Automated erythrocyte mean corpuscular volume 88 [foz_us] 80-99 Automated erythrocyte mean corpuscular hemoglobin (mass per erythrocyte) 30 pg 25-34 Automated erythrocyte mean corpuscular hemoglobin concentration measurement ( mass/volume) 34 g/dL 32-36 Automated erythrocyte distribution width ratio 14.8 % 10.0-14.5 Automated blood platelet count (count/volume) 148 10*3/uL 130-400 Automated blood platelet mean volume measurement 11.5 [foz_us] 7.4-10.4 Automated blood neutrophils/100 leukocytes 72 % 42-75 Automated blood lymphocytes/100 leukocytes 9 % 12-44 Blood monocytes/100 leukocytes 18 % 0-12 Automated blood eosinophils/100 leukocytes 2 % 0-10 Automated blood basophils/100 leukocytes 0 % 0-10 Blood neutrophils automated count (number/volume) 6.0 10*3 1.8-7.8 Blood lymphocytes automated count (number/volume) 0.7 10*3 1.0-4.0 Blood monocytes automated count (number/volume) 1.5 10*3 0.0-1.0 Automated eosinophil count 0.2 10*3/uL 0.0-0.3 Automated blood basophil count (count/volume) 0.0 10*3/uL 0.0-0.1 Whole blood basic metabolic panel - 08/23/18 03:30 Serum or plasma sodium measurement (moles/volume) 140 mmol/L 135-145 Serum or plasma potassium measurement (moles/volume) 4.2 mmol/L 3.6-5.0 Serum or plasma chloride measurement (moles/volume) 112 mmol/L 98-107 Carbon dioxide 20 mmol/L 21-32 Serum or plasma anion gap determination (moles/volume) 8 mmol/L 5-14 Serum or plasma urea nitrogen measurement (mass/volume) 26 mg/dL 7-18 Serum or plasma creatinine measurement (mass/volume) 1.12 mg/dL 0.60-1.30 Serum or plasma urea nitrogen/creatinine mass ratio 23 NRG Serum or plasma creatinine measurement with calculation of estimated glomerular filtration rate > NRG Serum or plasma glucose measurement (mass/volume) 94 mg/dL 70-105 Serum or plasma calcium measurement (mass/volume) 8.2 mg/dL 8.5-10.1 Serum or plasma phosphate measurement (mass/volume) - 08/23/18 03:30 Serum or plasma phosphate measurement (mass/volume) 2.5 mg/dL 2.3-4.7 Magnesium - 08/23/18 03:30 Magnesium 2.0 mg/dL 1.8-2.4 Complete blood count (CBC) with automated white blood cell (WBC) differential - 08/24/18 06:02 Blood leukocytes automated count (number/volume) 7.8 10*3/uL 4.3-11.0 Blood erythrocytes automated count (number/volume) 3.61 10*6/uL 4.35-5.85 Venous blood hemoglobin measurement (mass/volume) 10.6 g/dL 13.3-17.7 Blood hematocrit (volume fraction) 32 % 40-54 Automated erythrocyte mean corpuscular volume 90 [foz_us] 80-99 Automated erythrocyte mean corpuscular hemoglobin (mass per erythrocyte) 29 pg 25-34 Automated erythrocyte mean corpuscular hemoglobin concentration measurement ( mass/volume) 33 g/dL 32-36 Automated erythrocyte distribution width ratio 14.5 % 10.0-14.5 Automated blood platelet count (count/volume) 149 10*3/uL 130-400 Automated blood platelet mean volume measurement 11.7 [foz_us] 7.4-10.4 Automated blood neutrophils/100 leukocytes 68 % 42-75 Automated blood lymphocytes/100 leukocytes 8 % 12-44 Blood monocytes/100 leukocytes 20 % 0-12 Automated blood eosinophils/100 leukocytes 4 % 0-10 Automated blood basophils/100 leukocytes 0 % 0-10 Blood neutrophils automated count (number/volume) 5.4 10*3 1.8-7.8 Blood lymphocytes automated count (number/volume) 0.6 10*3 1.0-4.0 Blood monocytes automated count (number/volume) 1.6 10*3 0.0-1.0 Automated eosinophil count 0.3 10*3/uL 0.0-0.3 Automated blood basophil count (count/volume) 0.0 10*3/uL 0.0-0.1 Whole blood basic metabolic panel - 08/24/18 06:02 Serum or plasma sodium measurement (moles/volume) 140 mmol/L 135-145 Serum or plasma potassium measurement (moles/volume) 3.8 mmol/L 3.6-5.0 Serum or plasma chloride measurement (moles/volume) 110 mmol/L 98-107 Carbon dioxide 22 mmol/L 21-32 Serum or plasma anion gap determination (moles/volume) 8 mmol/L 5-14 Serum or plasma urea nitrogen measurement (mass/volume) 27 mg/dL 7-18 Serum or plasma creatinine measurement (mass/volume) 1.14 mg/dL 0.60-1.30 Serum or plasma urea nitrogen/creatinine mass ratio 24 NRG Serum or plasma creatinine measurement with calculation of estimated glomerular filtration rate > NRG Serum or plasma glucose measurement (mass/volume) 91 mg/dL 70-105 Serum or plasma calcium measurement (mass/volume) 8.2 mg/dL 8.5-10.1 Serum or plasma phosphate measurement (mass/volume) - 08/24/18 06:02 Serum or plasma phosphate measurement (mass/volume) 2.5 mg/dL 2.3-4.7 Magnesium - 08/24/18 06:02 Magnesium 1.8 mg/dL 1.8-2.4 Complete blood count (CBC) with automated white blood cell (WBC) differential - 08/25/18 05:38 Blood leukocytes automated count (number/volume) 6.6 10*3/uL 4.3-11.0 Blood erythrocytes automated count (number/volume) 3.70 10*6/uL 4.35-5.85 Venous blood hemoglobin measurement (mass/volume) 10.9 g/dL 13.3-17.7 Blood hematocrit (volume fraction) 33 % 40-54 Automated erythrocyte mean corpuscular volume 90 [foz_us] 80-99 Automated erythrocyte mean corpuscular hemoglobin (mass per erythrocyte) 29 pg 25-34 Automated erythrocyte mean corpuscular hemoglobin concentration measurement ( mass/volume) 33 g/dL 32-36 Automated erythrocyte distribution width ratio 14.8 % 10.0-14.5 Automated blood platelet count (count/volume) 176 10*3/uL 130-400 Automated blood platelet mean volume measurement 11.3 [foz_us] 7.4-10.4 Automated blood neutrophils/100 leukocytes 70 % 42-75 Automated blood lymphocytes/100 leukocytes 7 % 12-44 Blood monocytes/100 leukocytes 17 % 0-12 Automated blood eosinophils/100 leukocytes 6 % 0-10 Automated blood basophils/100 leukocytes 0 % 0-10 Blood neutrophils automated count (number/volume) 4.6 10*3 1.8-7.8 Blood lymphocytes automated count (number/volume) 0.5 10*3 1.0-4.0 Blood monocytes automated count (number/volume) 1.2 10*3 0.0-1.0 Automated eosinophil count 0.4 10*3/uL 0.0-0.3 Automated blood basophil count (count/volume) 0.0 10*3/uL 0.0-0.1 Whole blood basic metabolic panel - 08/25/18 05:38 Serum or plasma sodium measurement (moles/volume) 142 mmol/L 135-145 Serum or plasma potassium measurement (moles/volume) 3.9 mmol/L 3.6-5.0 Serum or plasma chloride measurement (moles/volume) 110 mmol/L 98-107 Carbon dioxide 24 mmol/L 21-32 Serum or plasma anion gap determination (moles/volume) 8 mmol/L 5-14 Serum or plasma urea nitrogen measurement (mass/volume) 28 mg/dL 7-18 Serum or plasma creatinine measurement (mass/volume) 1.09 mg/dL 0.60-1.30 Serum or plasma urea nitrogen/creatinine mass ratio 26 NRG Serum or plasma creatinine measurement with calculation of estimated glomerular filtration rate > NRG Serum or plasma glucose measurement (mass/volume) 91 mg/dL 70-105 Serum or plasma calcium measurement (mass/volume) 8.4 mg/dL 8.5-10.1 Serum or plasma phosphate measurement (mass/volume) - 08/25/18 05:38 Serum or plasma phosphate measurement (mass/volume) 3.3 mg/dL 2.3-4.7 Magnesium - 08/25/18 05:38 Magnesium 1.7 mg/dL 1.8-2.4 Complete blood count (CBC) with automated white blood cell (WBC) differential - 08/26/18 05:30 Blood leukocytes automated count (number/volume) 6.6 10*3/uL 4.3-11.0 Blood erythrocytes automated count (number/volume) 3.67 10*6/uL 4.35-5.85 Venous blood hemoglobin measurement (mass/volume) 10.5 g/dL 13.3-17.7 Blood hematocrit (volume fraction) 33 % 40-54 Automated erythrocyte mean corpuscular volume 90 [foz_us] 80-99 Automated erythrocyte mean corpuscular hemoglobin (mass per erythrocyte) 29 pg 25-34 Automated erythrocyte mean corpuscular hemoglobin concentration measurement ( mass/volume) 32 g/dL 32-36 Automated erythrocyte distribution width ratio 14.3 % 10.0-14.5 Automated blood platelet count (count/volume) 193 10*3/uL 130-400 Automated blood platelet mean volume measurement 11.1 [foz_us] 7.4-10.4 Automated blood neutrophils/100 leukocytes 70 % 42-75 Automated blood lymphocytes/100 leukocytes 8 % 12-44 Blood monocytes/100 leukocytes 15 % 0-12 Automated blood eosinophils/100 leukocytes 6 % 0-10 Automated blood basophils/100 leukocytes 0 % 0-10 Blood neutrophils automated count (number/volume) 4.6 10*3 1.8-7.8 Blood lymphocytes automated count (number/volume) 0.6 10*3 1.0-4.0 Blood monocytes automated count (number/volume) 1.0 10*3 0.0-1.0 Automated eosinophil count 0.4 10*3/uL 0.0-0.3 Automated blood basophil count (count/volume) 0.0 10*3/uL 0.0-0.1 Whole blood basic metabolic panel - 08/26/18 05:30 Serum or plasma sodium measurement (moles/volume) 140 mmol/L 135-145 Serum or plasma potassium measurement (moles/volume) 4.0 mmol/L 3.6-5.0 Serum or plasma chloride measurement (moles/volume) 111 mmol/L 98-107 Carbon dioxide 22 mmol/L 21-32 Serum or plasma anion gap determination (moles/volume) 7 mmol/L 5-14 Serum or plasma urea nitrogen measurement (mass/volume) 29 mg/dL 7-18 Serum or plasma creatinine measurement (mass/volume) 1.10 mg/dL 0.60-1.30 Serum or plasma urea nitrogen/creatinine mass ratio 26 NRG Serum or plasma creatinine measurement with calculation of estimated glomerular filtration rate > NRG Serum or plasma glucose measurement (mass/volume) 86 mg/dL 70-105 Serum or plasma calcium measurement (mass/volume) 8.4 mg/dL 8.5-10.1 Serum or plasma phosphate measurement (mass/volume) - 08/26/18 05:30 Serum or plasma phosphate measurement (mass/volume) 3.0 mg/dL 2.3-4.7 Magnesium - 08/26/18 05:30 Magnesium 1.8 mg/dL 1.8-2.4 Encounters ACCT No. Visit Date/Time Discharge Status Pt. Type Provider Facility Loc./Unit Complaint [id number] 08/19/2018 13:22:00 08/19/2018 23:59:59 CLS Outpatient ROSITA NIELSON, KARLY [facility] WOUND[facility] [id number] 08/06/2018 11:54:00 08/06/2018 23:59:59 CLS Outpatient RADHA WRIGHT MD [facility] W[facility] [id number] 01/02/2018 10:25:00 01/02/2018 23:59:59 CLS Outpatient GHULAM PARKER MD [facility] CARD CAD,HTN [id number] 12/25/2017 14:45:00 12/25/2017 23:59:59 CLS Preadmit JOSÉ NIELSON, CLEVE [facility] RAD RECURRENT ING HERNIA [id number] 12/15/2017 07:05:00 12/15/2017 23:59:59 CLS Outpatient GHULAM PARKER MD [facility] CARD CAD,HTN [id number] 04/05/2016 10:17:00 04/05/2016 23:59:59 CLS Outpatient GHULAM PARKER MD [facility] CARD CAD,HTN,DYSPNEA,HLP, HYPOTHYROIDISM [id number] 02/08/2015 10:34:00 02/08/2015 23:59:59 CLS Outpatient GHULAM PARKER MD [facility] CARD CAD HTN HLE HYPOTHYROIDISM [id number] 05/04/2013 08:27:00 05/04/2013 23:59:59 CLS Outpatient GHULAM PARKER MD [facility] CARD CAD,HTN,HLP [id number] 08/22/2018 10:57:00 ACT Inpatient GHULAM PARKER MD [facility] 4TH ABN CLARI'S,CLAUDICATION [id number] 02/08/2015 10:35:00 Document Registration [id number] 02/08/2015 10:35:00 Document Registration [id number] 12/20/2009 11:14:00 Document Registration [email or web address] 02/08/2015 10:35:11 ACT Document Registration
== END 2018-08-26 16:40 | DRG 908 ==
LOC: ICU 08:45 → CATH 08:45 → EDSTATUS 11:00 → CATH 12:38 → ICU 12:38 → CATH 08-22 10:57 → UNDOADMIN 08-22 10:57 → ICU 08-23 09:47 → 4TH 08-23 09:47 → UNDODISIN 08-26 16:40
PROVIDERS: ADMIT Internal Medicine Cardiovascular Disease; ATTEND Internal Medicine Cardiovascular Disease
PROC: 047F3ZZ Dilation of Left Internal Iliac Artery, Percutaneous Approach (ICD-10-PCS; principal; 2018-08-21)
PROC: 047L3ZZ Dilation of Left Femoral Artery, Percutaneous Approach (ICD-10-PCS; 2018-08-21)
PROC: 047K3DZ Dilation of Right Femoral Artery with Intraluminal Device, Percutaneous Approach (ICD-10-PCS; 2018-08-21)
PROC: 047R3ZZ Dilation of Right Posterior Tibial Artery, Percutaneous Approach (ICD-10-PCS; 2018-08-21)
PROC: 047T3ZZ Dilation of Right Peroneal Artery, Percutaneous Approach (ICD-10-PCS; 2018-08-21)
PROC: B41D1ZZ Fluoroscopy of Aorta and Bilateral Lower Extremity Arteries using Low Osmolar Contrast (ICD-10-PCS; 2018-08-21)
PROC: B41D1ZZ Fluoroscopy of Aorta and Bilateral Lower Extremity Arteries using Low Osmolar Contrast (ICD-10-PCS; 2018-08-21)
PROC: B41G1ZZ Fluoroscopy of Left Lower Extremity Arteries using Low Osmolar Contrast (ICD-10-PCS; 2018-08-21)
DX: I97.618 Postprocedural hemorrhage of a circulatory system organ or structure following other circulatory system procedure (principal); I97.638 Postprocedural hematoma of a circulatory system organ or structure following other circulatory system procedure; R58 Hemorrhage, not elsewhere classified; T81.19XA Other postprocedural shock, initial encounter; I70.234 Atherosclerosis of native arteries of right leg with ulceration of heel and midfoot; L97.419 Non-pressure chronic ulcer of right heel and midfoot with unspecified severity; I70.221 Atherosclerosis of native arteries of extremities with rest pain, right leg; I70.213 Atherosclerosis of native arteries of extremities with intermittent claudication, bilateral legs; I25.10 Atherosclerotic heart disease of native coronary artery without angina pectoris; E03.9 Hypothyroidism, unspecified; I27.20 Pulmonary hypertension, unspecified; I87.2 Venous insufficiency (chronic) (peripheral); I65.23 Occlusion and stenosis of bilateral carotid arteries; E78.00 Pure hypercholesterolemia, unspecified; I12.9 Hypertensive chronic kidney disease with stage 1 through stage 4 chronic kidney disease, or unspecified chronic kidney disease; N18.9 Chronic kidney disease, unspecified; Z95.5 Presence of coronary angioplasty implant and graft; Z87.891 Personal history of nicotine dependence; E78.5 Hyperlipidemia, unspecified
CPT/HCPCS: 36415; 37220; 37226; 71045; 75716; 76705; 80048; 80053; 80061; 83735; 84100; 85007; 85025; 85027; 85610; 85730; 86850; 86900; 86901; 86920; 87081; 93005

== ENCOUNTER → 2018-09-02 | Outpatient (CLI) | payer MEDICAID ==
[~2018-09-02] MED LIST changes: +ASPI-808 PO; +ASPI-983 PO; +ATOR20TA66 PO; +CHOL20003 PO; +CLOP75TA28 PO; +FERR325T18 PO; +L GA1CAP2 PO; +LEVO50TA6 PO; +LOSA50TA7 PO; +METO-333 PO; +MV-M1TAB20 PO; +OMEP40CA36 PO; +TAMS0.4C2 PO
== END ==
LOC: WOUNDCARE 13:15
PROVIDERS: ATTEND Surgery
DX: I70.234 Atherosclerosis of native arteries of right leg with ulceration of heel and midfoot (principal); L97.512 Non-pressure chronic ulcer of other part of right foot with fat layer exposed; I87.323 Chronic venous hypertension (idiopathic) with inflammation of bilateral lower extremity; G60.9 Hereditary and idiopathic neuropathy, unspecified
CPT/HCPCS: 99212

== ENCOUNTER → 2018-09-09 | Outpatient (CLI) | payer MEDICAID ==
[~2018-09-09] MED LIST changes: +LOSA50TA63 PO; -LOSA50TA7 PO
== END ==
LOC: WOUNDCARE 12:57
PROVIDERS: ATTEND Surgery
DX: I70.234 Atherosclerosis of native arteries of right leg with ulceration of heel and midfoot (principal); L97.512 Non-pressure chronic ulcer of other part of right foot with fat layer exposed; I87.323 Chronic venous hypertension (idiopathic) with inflammation of bilateral lower extremity; G60.9 Hereditary and idiopathic neuropathy, unspecified
CPT/HCPCS: 99212

== ENCOUNTER 2018-10-06 12:00 | Outpatient (CLI) | payer MEDICAID ==
[~2018-10-06] VITALS: Ht 177.8 cm; Wt 64.0 kg
--- NOTE | 2018-10-06 12:00 | NUR ---
DISCUSSED CASE WITH JABARI TRUONG, NEW ORDERS RECEIVED FOR LAB AND REPEAT CXR.
== END 2018-10-06 12:07 | disposition home or self-care (01) ==
LOC: PREOP 12:00
PROVIDERS: ATTEND Surgery
DX: Z01.818 Encounter for other preprocedural examination (principal)

== ENCOUNTER 2018-10-07 06:41 | Day surgery (SDC) | payer MEDICAID ==
[~2018-10-07] VITALS: Ht 177.8 cm; Wt 62.2 kg
[~2018-10-07 06:41] MED LIST changes: +ACET325C5 PO; +BIOT5000 PO; +EUCA50OI5 TP; +L.AC1CAP6 PO; +LOPE2CAP PO; +VITS42.53 TP
--- OUTSIDE RECORDS SUMMARY | 2018-10-07 06:46 | XMS REPORT | Continuity of Care Document ---
Author Author [facility] Organization [facility] Address Unknown Phone Unavailable Allergies Active Description Code Type Severity Reaction Onset Reported/Identified Relationship to Patient Clinical Status Yes No Known Drug Allergies [id number] Drug Allergy Mild N/A 09/04/2009 Medications There [...] MD Ot I25.10 ATHSCL HEART DISEASE OF [place] CORONARY 04/08/2016 GHULAM PARKER MD Ot R06.02 SHORTNESS OF BREATH 04/08/2016 GHULAM PARKER MD Ot E03.9 HYPOTHYROIDISM, UNSPECIFIED 04/08/2016 GHULAM PARKER MD Ot E78.2 MIXED HYPERLIPIDEMIA 04/08/2016 GHULAM PARKER MD Ot I10 ESSENTIAL (PRIMARY) HYPERTENSION 04/08/2016 GHULAM PARKER MD Ot I25.10 ATHSCL HEART DISEASE OF [place] CORONARY 04/08/2016 GHULAM PARKER MD Ot R06.02 SHORTNESS OF BREATH 05/02/2016 GHULAM PARKER MD Ot E03.9 HYPOTHYROIDISM, UNSPECIFIED 05/02/2016 GHULAM PARKER MD Ot E78.2 MIXED HYPERLIPIDEMIA 05/02/2016 GHULAM PARKER MD J Ot I10 ESSENTIAL (PRIMARY) HYPERTENSION 05/02/2016 GHULAM PARKER MD Ot I25.10 ATHSCL HEART DISEASE OF [place] CORONARY 05/02/2016 GHULAM PARKER MD Ot R06.02 [...] MD Ot I25.10 ATHSCL HEART DISEASE OF [place] CORONARY 12/11/2017 GHULAM PARKER MD Ot R06.02 [...] MD Ot I25.10 ATHSCL HEART DISEASE OF [place] CORONARY 12/15/2017 GHULAM PARKER MD Ot R06.02 SHORTNESS OF BREATH 12/15/2017 GHULAM PARKER MD Ot E03.9 HYPOTHYROIDISM, UNSPECIFIED 12/15/2017 GHULAM PARKER MD Ot E78.5 HYPERLIPIDEMIA, UNSPECIFIED 12/15/2017 GHULAM PARKER MD Ot I10 ESSENTIAL (PRIMARY) HYPERTENSION 12/15/2017 GHULAM PARKER MD Ot I25.10 ATHSCL HEART DISEASE OF [place] CORONARY 12/15/2017 GHULAM PARKER MD Ot Z72.0 TOBACCO USE 01/01/2018 GHULAM PARKER MD Ot E03.9 HYPOTHYROIDISM, UNSPECIFIED 01/01/2018 GHULAM PARKER MD Ot E78.5 HYPERLIPIDEMIA, UNSPECIFIED 01/01/2018 GHULAM PARKER MD Ot I10 ESSENTIAL (PRIMARY) HYPERTENSION 01/01/2018 GHULAM PARKER MD Ot I25.10 ATHSCL HEART DISEASE OF [place] CORONARY 01/01/2018 GHULAM PARKER MD Ot Z72.0 TOBACCO USE 01/05/2018 GHULAM PARKER MD Ot E03.9 HYPOTHYROIDISM, UNSPECIFIED 01/05/2018 GHULAM PARKER MD Ot E78.5 HYPERLIPIDEMIA, UNSPECIFIED 01/05/2018 GHULAM PARKER MD J Ot I10 ESSENTIAL (PRIMARY) HYPERTENSION 01/05/2018 GHULAM PARKER MD Ot I25.10 ATHSCL HEART DISEASE OF [place] CORONARY 01/05/2018 GHULAM PARKER MD Ot I34.0 NONRHEUMATIC MITRAL (VALVE) INSUFFICIENC 01/08/2018 GHULAM PARKER MD Ot E03.9 HYPOTHYROIDISM, UNSPECIFIED 01/08/2018 GHULAM PARKER MD Ot E78.5 HYPERLIPIDEMIA, UNSPECIFIED 01/08/2018 GHULAM PARKER MD Ot I10 ESSENTIAL (PRIMARY) HYPERTENSION 01/08/2018 GHULAM PARKER MD Ot I25.10 ATHSCL HEART DISEASE OF [place] CORONARY 01/08/2018 GHULAM PARKER MD Ot I34.0 NONRHEUMATIC MITRAL (VALVE) INSUFFICIENC 01/16/2018 GHULAM PARKER MD Ot E03.9 HYPOTHYROIDISM, UNSPECIFIED 01/16/2018 GHULAM PARKER MD Ot E78.5 HYPERLIPIDEMIA, UNSPECIFIED 01/16/2018 GHULAM PARKER MD Ot I10 ESSENTIAL (PRIMARY) HYPERTENSION 01/16/2018 GHULAM PARKER MD Ot I25.10 ATHSCL HEART DISEASE OF [place] CORONARY 01/16/2018 GHULAM PARKER MD Ot I34.0 [...] 08/21/2018 KARLY BECKER MD, Ot 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 08/21/2018 KARLY BECKER MD Ot 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 08/21/2018 KARLY BECKER MD, Ot L97.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 08/22/2018 KARLY BECKER MD, Ot G60.9 HEREDITARY AND IDIOPATHIC NEUROPATHY, UN 08/22/2018 KARLY BECKER MD, Ot 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 08/22/2018 KARLY BECKER MD, Ot 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 08/22/2018 KARLY BECKER MD, Ot L97.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 08/25/2018 RADHA WRGIHT MD, Ot G60.9 HEREDITARY AND IDIOPATHIC NEUROPATHY, UN 08/25/2018 RADHA WRIGHT MD Ot I73.9 PERIPHERAL VASCULAR DISEASE, UNSPECIFIED 08/25/2018 RADHA WRIGHT MD Ot I87.2 VENOUS INSUFFICIENCY (CHRONIC) (PERIPHER 08/25/2018 RADHA WRIGHT MD Ot 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 08/25/2018 RADHA WRIGHT MD Ot L97.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 08/26/2018 GHULAM PARKER MD Ot E03.9 HYPOTHYROIDISM, UNSPECIFIED 08/26/2018 GHULAM PARKER MD Ot E78.00 PURE HYPERCHOLESTEROLEMIA, UNSPECIFIED 08/26/2018 GHULAM PARKER MD Ot I12.9 HYPERTENSIVE CHRONIC KIDNEY DISEASE W ST 08/26/2018 GHULAM PARKER MD Ot I25.10 ATHSCL HEART DISEASE OF [place] CORONARY 08/26/2018 GHULAM PARKER MD Ot I27.20 PULMONARY HYPERTENSION, UNSPECIFIED 08/26/2018 GHULAM PARKER MD Ot I65.23 OCCLUSION AND STENOSIS OF BILATERAL GARZA 08/26/2018 GHULAM PARKER MD Ot I70.213 ATHSCL [place] ARTERIES OF EXTRM W INTRMT 08/26/2018 GHULAM PARKER MD Ot I70.221 ATHSCL [place] ARTERIES OF EXTREMITIES W 08/26/2018 GHULAM PARKER MD Ot 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 08/26/2018 GHULAM PARKER MD Ot I87.2 VENOUS INSUFFICIENCY (CHRONIC) (PERIPHER 08/26/2018 GHULAM PARKER MD Ot I97.618 POSTPROC HEMOR OF A CIRC SYS ORG FOL OTH 08/26/2018 GHULAM PARKER MD Ot I97.638 POSTPROC HEMATOMA OF A CIRC SYS ORG FOL 08/26/2018 GHULAM PARKER MD Ot L97.419 NON-PRS CHR ULCER OF RIGHT HEEL AND MIDF 08/26/2018 GHULAM PARKER MD, Ot N18.9 CHRONIC KIDNEY DISEASE, UNSPECIFIED 08/26/2018 GHULAM PARKER MD Ot R58 HEMORRHAGE, NOT ELSEWHERE CLASSIFIED 08/26/2018 GHULAM PARKER MD Ot T81.19XA OTHER POSTPROCEDURAL SHOCK, INITIAL ENCO 08/26/2018 GHULAM PARKER MD Ot Z87.891 PERSONAL HISTORY OF NICOTINE DEPENDENCE 08/26/2018 GHULAM PARKER MD Ot Z95.5 PRESENCE OF CORONARY ANGIOPLASTY IMPLANT 08/26/2018 GHULAM PARKER MD Ot E03.9 HYPOTHYROIDISM, UNSPECIFIED 08/26/2018 GHULAM PARKER MD Ot E78.00 PURE HYPERCHOLESTEROLEMIA, UNSPECIFIED 08/26/2018 GHULAM PARKER MD Ot I12.9 HYPERTENSIVE CHRONIC KIDNEY DISEASE W ST 08/26/2018 GHULAM PARKER MD Ot I25.10 ATHSCL HEART DISEASE OF [place] CORONARY 08/26/2018 GHULAM PARKER MD Ot I27.20 PULMONARY HYPERTENSION, UNSPECIFIED 08/26/2018 GHULAM PARKER MD Ot I65.23 OCCLUSION AND STENOSIS OF BILATERAL [place]AR[place] 08/26/2018 GHULAM PARKER MD Ot I70.213 ATHSCL [place] ARTERIES OF EXTRM W INTRMT 08/26/2018 GHULAM PARKER MD Ot I70.221 ATHSCL [place] ARTERIES OF EXTREMITIES W 08/26/2018 GHULAM PARKER MD Ot 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 08/26/2018 GHULAM PARKER MD Ot I87.2 VENOUS INSUFFICIENCY (CHRONIC) (PERIPHER 08/26/2018 GHULAM PARKER MD Ot I97.618 POSTPROC HEMOR OF A CIRC SYS ORG FOL OTH 08/26/2018 GHULAM PARKER MD Ot I97.638 POSTPROC HEMATOMA OF A CIRC SYS ORG FOL 08/26/2018 GHULAM PARKER MD Ot L97.419 NON-PRS CHR ULCER OF RIGHT HEEL AND MIDF 08/26/2018 GHULAM PARKER MD Ot N18.9 CHRONIC KIDNEY DISEASE, UNSPECIFIED 08/26/2018 GHULAM PARKER MD Ot R58 HEMORRHAGE, NOT ELSEWHERE CLASSIFIED 08/26/2018 GHULAM PARKER MD Ot T81.19XA OTHER POSTPROCEDURAL SHOCK, INITIAL ENCO 08/26/2018 GHULAM PARKER MD Ot Z87.891 PERSONAL HISTORY OF NICOTINE DEPENDENCE 08/26/2018 GHULAM PARKER MD Ot Z95.5 PRESENCE OF CORONARY ANGIOPLASTY IMPLANT 08/26/2018 GHULAM PARKER MD Ot E03.9 HYPOTHYROIDISM, UNSPECIFIED 08/26/2018 GHULAM PARKER MD Ot E78.00 PURE HYPERCHOLESTEROLEMIA, UNSPECIFIED 08/26/2018 GHULAM PARKER MD Ot E78.5 HYPERLIPIDEMIA, UNSPECIFIED 08/26/2018 GHULAM PARKER MD Ot I12.9 HYPERTENSIVE CHRONIC KIDNEY DISEASE W ST 08/26/2018 GHULAM PARKER MD Ot I25.10 ATHSCL HEART DISEASE OF [place] CORONARY 08/26/2018 GHULAM PARKER MD Ot I27.20 PULMONARY HYPERTENSION, UNSPECIFIED 08/26/2018 GHULAM PARKER MD Ot I65.23 OCCLUSION AND STENOSIS OF BILATERAL [place] 08/26/2018 GHULAM PARKER MD Ot I70.213 ATHSCL [place] ARTERIES OF EXTRM W INTRMT 08/26/2018 GHULAM PARKER MD Ot I70.221 ATHSCL [place] ARTERIES OF EXTREMITIES W 08/26/2018 GHULAM PARKER MD Ot 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 08/26/2018 GHULAM PARKER MD Ot I87.2 VENOUS INSUFFICIENCY (CHRONIC) (PERIPHER 08/26/2018 GHULAM PARKER MD Ot I97.618 POSTPROC HEMOR OF A CIRC SYS ORG FOL OTH 08/26/2018 GHULAM PARKER MD Ot I97.638 POSTPROC HEMATOMA OF A CIRC SYS ORG FOL 08/26/2018 GHULAM PARKER MD Ot L97.419 NON-PRS CHR ULCER OF RIGHT HEEL AND MIDF 08/26/2018 GHULAM PARKER MD Ot N18.9 CHRONIC KIDNEY DISEASE, UNSPECIFIED 08/26/2018 GHULAM PARKER MD Ot R58 HEMORRHAGE, NOT ELSEWHERE CLASSIFIED 08/26/2018 GHULAM PARKER MD Ot T81.19XA OTHER POSTPROCEDURAL SHOCK, INITIAL ENCO 08/26/2018 GHULAM PARKER MD Ot Z87.891 PERSONAL HISTORY OF NICOTINE DEPENDENCE 08/26/2018 GHULAM PARKER MD Ot Z95.5 PRESENCE OF CORONARY ANGIOPLASTY IMPLANT 08/27/2018 GHULAM PARKER MD Ot E03.9 HYPOTHYROIDISM, UNSPECIFIED 08/27/2018 GHULAM PARKER MD Ot E78.00 PURE HYPERCHOLESTEROLEMIA, UNSPECIFIED 08/27/2018 GHULAM PARKER MD Ot I12.9 HYPERTENSIVE CHRONIC KIDNEY DISEASE W ST 08/27/2018 GHULAM PARKER MD Ot I25.10 ATHSCL HEART DISEASE OF [place] CORONARY 08/27/2018 GHULAM PARKER MD Ot I27.20 PULMONARY HYPERTENSION, UNSPECIFIED 08/27/2018 GHULAM PARKER MD Ot I65.23 OCCLUSION AND STENOSIS OF BILATERAL [place] 08/27/2018 GHULAM PARKER MD Ot I70.213 ATHSCL [place] ARTERIES OF EXTRM W INTRMT 08/27/2018 GHULAM PARKER MD Ot I70.221 ATHSCL [place] ARTERIES OF EXTREMITIES W 08/27/2018 GHULAM PARKER MD Ot 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 08/27/2018 GHULAM PARKER MD Ot I87.2 VENOUS INSUFFICIENCY (CHRONIC) (PERIPHER 08/27/2018 GHULAM PARKER MD Ot I97.618 POSTPROC HEMOR OF A CIRC SYS ORG FOL OTH 08/27/2018 GHULAM PARKER MD Ot I97.638 POSTPROC HEMATOMA OF A CIRC SYS ORG FOL 08/27/2018 GHULAM PARKER MD Ot L97.419 NON-PRS CHR ULCER OF RIGHT HEEL AND MIDF 08/27/2018 GHULAM PARKER MD Ot N18.9 CHRONIC KIDNEY DISEASE, UNSPECIFIED 08/27/2018 GHULAM PARKER MD, Ot R58 HEMORRHAGE, NOT ELSEWHERE CLASSIFIED 08/27/2018 GHULAM PARKER MD, Ot T81.19XA OTHER POSTPROCEDURAL SHOCK, INITIAL ENCO 08/27/2018 GHULAM PARKER MD, Ot Z87.891 PERSONAL HISTORY OF NICOTINE DEPENDENCE 08/27/2018 GHULAM PARKER MD Ot Z95.5 PRESENCE OF CORONARY ANGIOPLASTY IMPLANT 09/03/2018 KARLY BECKER MD, Ot G60.9 HEREDITARY AND IDIOPATHIC NEUROPATHY, UN 09/03/2018 KARLY BECKER MD, Ot 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 09/03/2018 KARLY BECKER MD, Ot 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 09/03/2018 KARLY BECKER MD, Ot L97.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 09/11/2018 KARLY BECKER MD, Ot G60.9 HEREDITARY AND IDIOPATHIC NEUROPATHY, UN 09/11/2018 KARLY BECKER MD, Ot 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 09/11/2018 KARLY BECKER MD, Ot 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 09/11/2018 KARLY BECKER MD, Ot L97.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 09/25/2018 KARLY BECKER MD, Ot G60.9 HEREDITARY AND IDIOPATHIC NEUROPATHY, UN 09/25/2018 KARLY BECKER MD Ot 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 09/25/2018 KARLY BECKER MD, Ot 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 09/25/2018 KARLY BECKER MD, Ot L97.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 Procedures Code Description Performed By Performed On 406I4DH DILATION OF LEFT INTERNAL ILIAC ARTERY, 08/21/2018 295T7XF DILATION OF R FEM ART WITH INTRALUM DEV, 08/21/2018 208Y0VV DILATION OF LEFT FEMORAL ARTERY, PERCUTA 08/21/2018 190F2JA DILATION OF RIGHT POSTERIOR TIBIAL ARTER 08/21/2018 913H1TM DILATION OF RIGHT PERONEAL ARTERY, PERCU 08/21/2018 [id number] FLUOROSCOPY OF AORTA, BI LE ART USING L 08/21/2018 [id number] FLUOROSCOPY OF L LOW EXTREM ART USING L 08/21/2018 Results Test Result Range Automated blood complete [...] CELLS LEUKO REDUCED AS1 TRANSFUSED 08/21/18 1607 [facility] Blood type T Indirect antibody screen panel - 08/21/18 15:15 ABO+Rh group AP NRG Transfusion band number [id number] NR Blood group antibody screen NEGATIVE NR Complete blood count (CBC) with automated white [...] Status Pt. Type Provider Facility Loc./Unit Complaint [id number] 10/06/2018 12:00:00 10/06/2018 12:07:00 DIS Outpatient CLEVE KUMAR MD [facility] PREOP BILATERAL INGUINAL HERNIA [id number] 09/09/2018 12:57:00 09/09/2018 23:59:59 CLS Outpatient KARLY BECKER MD [facility] WOUNDCARE [id number] 09/02/2018 13:15:00 09/02/2018 23:59:59 CLS Outpatient KARLY BECKER MD [facility] WOUNDCARE [id number] 08/21/2018 08:45:00 08/26/2018 16:40:00 DIS Outpatient GHULAM PARKER MD [facility] 4TH ABN CLARI'S,CLAUDICATION [id number] 08/19/2018 13:22:00 08/19/2018 23:59:59 CLS Outpatient KARLY BECKER MD [facility] WOUNDCARE [id number] 08/06/2018 11:54:00 08/06/2018 23:59:59 CLS Outpatient RADHA WRIGHT MD [facility] WOUNDCARE [id number] 01/02/2018 10:25:00 01/02/2018 23:59:59 CLS Outpatient GHULAM PARKER MD [facility] CARD CAD,HTN [id number] 12/25/2017 14:45:00 12/25/2017 23:59:59 CLS Preadmit JOSÉ NIELSON, CLEVE Win [facility] RAD RECURRENT ING HERNIA [id number] 12/15/2017 07:05:00 12/15/2017 23:59:59 CLS Outpatient GHULAM PARKER MD [facility] CARD CAD,HTN [id number] 04/05/2016 10:17:00 04/05/2016 23:59:59 CLS Outpatient GHULAM PARKER MD [facility] CARD CAD,HTN,DYSPNEA,HLP, HYPOTHYROIDISM [id number] 02/08/2015 10:34:00 02/08/2015 23:59:59 CLS Outpatient GHULAM PARKER MD [facility] CARD CAD HTN HLE HYPOTHYROIDISM [id number] 05/04/2013 08:27:00 05/04/2013 23:59:59 CLS Outpatient GHULAM PARKER MD [facility] CARD CAD,HTN,HLP [id number] 10/07/2018 08:30:00 PEN Preadmit CLEVE KUMAR MD [facility] SDC BILATERAL INGUINAL HERNIA [id number] 02/08/2015 10:35:00 Document Registration [id number] 02/08/2015 10:35:00 Document Registration [id number] 12/20/2009 11:14:00 Document Registration [id number] 02/08/2015 10:35:11 ACT Document Registration
[2018-10-07] MEDS ORDERED: LACTATED RINGERS 1,000 ML IV PRN (06:51)
[2018-10-07 07:00] VITALS: BP 110/77
[2018-10-07] MEDS ORDERED: ceFAZolin 1,000 MG/SWFI 10 ML IV PUSH IV ONE ×2 (07:00)
[2018-10-07] MEDS ORDERED: ceFAZolin INJECTION 1,000 MG in NS (IVPB) 50 ML IV ONE (07:00)
[2018-10-07] MEDS ORDERED: BUP/EPI 0.5% 1:200,000 (SENSORCAINE) 30 ML VIAL ONE (07:08)
--- NOTE | 2018-10-07 07:14 | Diagnostic Imaging Report ---
INDICATION: Preop for bilateral inguinal hernia repair COMPARISON: 08/21/2018 FINDINGS: Frontal and lateral views of the chest demonstrate significant hyperinflation compatible with COPD. There is no acute infiltrate. Heart size is normal. There is no pneumothorax or effusion. Osseous structures are age-appropriate. IMPRESSION: COPD without acute infiltrate Dictated by: Dictated on workstation # [id number]
[2018-10-07] MEDS: LACTATED RINGERS 1,000 ML IV PRN ×2 (07:15→10:15)
[2018-10-07 07:24] LABS: BASOPHILS % (AUTO) 1 % (0-10); EOSINOPHILS # (AUTO) 0.2 10^3/uL (0.0-0.3); EOSINOPHILS % (AUTO) 3 % (0-10); HEMATOCRIT 40 % (40-54); HEMOGLOBIN 12.8 G/DL (13.3-17.7); LYMPHOCYTES # (AUTO) 0.7 X 10^3 (1.0-4.0); LYMPHOCYTES % (AUTO) 10 % (12-44); MEAN CORPUSCULAR HEMOGLOBIN 29 PG (25-34); MEAN CORPUSCULAR HGB CONC 32 G/DL (32-36); MEAN CORPUSCULAR VOLUME 91 FL (80-99); MEAN PLATELET VOLUME 11.6 FL (7.4-10.4); MONOCYTES # (AUTO) 0.9 X 10^3 (0.0-1.0); MONOCYTES % (AUTO) 13 % (0-12); NEUTROPHILS # (AUTO) 4.8 X 10^3 (1.8-7.8); NEUTROPHILS % (AUTO) 73 % (42-75); PLATELET COUNT 225 10^3/uL (130-400); RED CELL DISTRIBUTION WIDTH 15.4 % (10.0-14.5); WHITE BLOOD COUNT 6.6 10^3/uL (4.3-11.0)
[2018-10-07] MEDS ORDERED: fentaNYL INJECTION 100 MCG/2 ML AMP ONE ×2 (07:29→10:22)
[2018-10-07] MEDS ORDERED: ONDANSETRON 4 MG/2 ML (SDV) Z0FRAN ONE (07:29)
[2018-10-07] MEDS ORDERED: SEVOFLURANE (ULTANE) 15 ML INHAL SOLN ONE ×7 (07:29→10:46)
[2018-10-07] MEDS ORDERED: LIDOCAINE PF 2% 5 ML (XYLOCAINE) VIAL ONE (07:29)
[2018-10-07] MEDS ORDERED: DEXAMETHASONE 10 MG/ML (DECADRON) 1 ML VIAL ONE (07:29)
[2018-10-07] MEDS ORDERED: ROCURONIUM 10 MG/ML 5 ML SYRINGE IV ONE ×2 (07:29→10:23)
[2018-10-07] MEDS ORDERED: proPOfol 200 MG/20 ML (DIPRIVAN) VIAL IV ONE (07:29)
--- NOTE | 2018-10-07 08:21 | NUR ---
NOTIFIED RITA CHAMBERLAIN THAT PATIENT WILL BE ADMITTED TO 4TH FLOOR.
--- NOTE | 2018-10-07 08:39 | Progress Note-Pre Operative ---
Pre-Operative Progress Note H&P Reviewed The H&P was reviewed, patient examined and no changes noted. Date Seen by Provider: Sep 22, 2018 Time Seen by Provider: 11:00 Date H&P Reviewed: Oct 07, 2018 Time H&P Reviewed: 08:03 Pre-Operative Diagnosis: Bilateral inguinal herniae CLEVE KUMAR MD Oct 07, 2018 08:39
[2018-10-07] MEDS ORDERED: ACET325T49 PO (10:21)
[2018-10-07] MEDS ORDERED: ASPI-983 PO (10:21)
[2018-10-07] MEDS ORDERED: FERR-23 PO (10:21)
[2018-10-07] MEDS ORDERED: CLOP75TA69 PO (10:21)
[2018-10-07] MEDS ORDERED: NEOSTIGMINE 1 MG/ML 5 ML SYRINGE ONE (10:22)
[2018-10-07] MEDS ORDERED: GLYCOPYRROLATE 0.2 MG/ML (ROBINUL) 2 ML VIAL ONE ×2 (10:22→11:11)
--- NOTE | 2018-10-07 10:22 | NUR ---
UPDATED MED REC WITH PHYSICIAN VISIT FORM FROM [facility]
[2018-10-07] MEDS ORDERED: PHENYLEPHRINE 100 MCG/ML 10 ML (ANESTHESIA) SYR ONE (10:23)
[2018-10-07] MEDS ORDERED: fentaNYL INJECTION 100 MCG/2 ML AMP IVP ONE (11:15)
[2018-10-07] MEDS ORDERED: ONDANSETRON 4 MG/2 ML (SDV) Z0FRAN IVP PRN (11:15)
[2018-10-07] MEDS ORDERED: morphine INJ 10 MG/ML 1ML (SYR OR VIAL) IVP ONE (11:15)
[2018-10-07 12:00] VITALS: BP 136/73
[2018-10-07 12:15] VITALS: BP 136/73
[2018-10-07] MEDS ORDERED: ONDANSETRON 4 MG/5 ML ORAL SOLN (ZOFRAN) 5 ML PO PRN (12:30)
[2018-10-07] MEDS ORDERED: CATHETER FLUSH 10 ML SYR IV PRN (12:30)
[2018-10-07] MEDS: fentaNYL INJECTION 100 MCG/2 ML AMP IVP PRN ×3 (12:34→20:15)
[2018-10-07] MEDS ORDERED: ACETAMINOPHEN 325 MG TABLET PO PRN (14:45)
[2018-10-07] MEDS ORDERED: LOPERAMIDE 2 MG (IMODIUM) CAP PO PRN (14:45)
[2018-10-07] MEDS: HYDROcodone/APAP 5 MG/325 MG (LORTAB) TAB PO PRN ×2 (14:58→18:55)
[2018-10-07] MEDS: CATHETER FLUSH 10 ML SYR IV SCH ×2 (14:58→20:54)
[2018-10-07] MEDS ORDERED: LACTOBACILLUS ACIDOPHILUS (PROBIOTIC) CAPSULE PO SCH (18:00)
[2018-10-07] MEDS ORDERED: NON-FORMULARY MEDICATION 1 EA EA (L.acidoph & Paracasei,B.lactis (Probiotic) 1 CAP) PO SCH (18:00)
[2018-10-07] MEDS: meTOprolol TARTRATE 25 MG (LOPRESSOR) TABLET PO SCH (20:44)
[2018-10-07] MEDS ORDERED: ATORVASTATIN 20 MG (LIPITOR) TABLET PO SCH (21:00)
[2018-10-07] MEDS ORDERED: LEVOTHYROXINE 50 MCG (LEVOTHROID) TAB PO SCH (21:00)
[2018-10-08 00:52] VITALS: BP 126/59
[2018-10-08] MEDS: CATHETER FLUSH 10 ML SYR IV SCH (04:55)
--- NOTE | 2018-10-08 07:23 | Anesthesia-General Post-Op ---
General Patient Condition Mental Status/LOC: Same as Preop Cardiovascular: Satisfactory Nausea/Vomiting: Absent Respiratory: Satisfactory Pain: Controlled Complications: Absent Post Op Complications Complications None Follow Up Care/Instructions Patient Instructions None needed. Anesthesia/Patient Condition Patient Condition Patient is doing well, no complaints, stable vital signs, no apparent adverse anesthesia problems. No complications reported per nursing. [place] [facility] [place] Yes DAT GUZMAN CRNA Oct 08, 2018 07:23
[2018-10-08 08:00] VITALS: BP 165/76
[2018-10-08] MEDS ORDERED: FERROUS SULF 325 MG (IRON) TAB PO SCH (08:00)
[2018-10-08] MEDS ORDERED: VITAMIN D3 1,000 UNITS (CHOLECALCIFEROL) TABLET PO SCH (09:00)
[2018-10-08] MEDS ORDERED: NON-FORMULARY MEDICATION 1 EA EA (Biotin 5,000 MCG) PO SCH (09:00)
[2018-10-08] MEDS ORDERED: A & D OINT 60 GM TUBE TP SCH (09:00)
[2018-10-08] MEDS ORDERED: TAMSULOSIN 0.4 MG (FLOMAX) CAP PO SCH (09:00)
[2018-10-08] MEDS ORDERED: LOSARTAN 50 MG (COZAAR) TAB PO SCH (09:00)
[2018-10-08] MEDS ORDERED: NON-FORMULARY MEDICATION 1 EA EA (Losartan Potassium 50 MG) PO SCH (09:00)
[2018-10-08] MEDS ORDERED: PANTOPRAZOLE 40 MG (PROTONIX) TAB PO SCH (09:00)
[2018-10-08] MEDS ORDERED: NON-FORMULARY MEDICATION 1 EA EA (Cholecalciferol (Vitamin D3) (Vitamin D3) 2,000 UNIT) PO SCH (09:00)
[2018-10-08] MEDS ORDERED: NON-FORMULARY MEDICATION 1 EA EA (Omeprazole 40 MG) PO SCH (09:00)
--- NOTE | 2018-10-08 09:09 | Operative Report ---
Operative Report Date of Procedure/Surgery Oct 07, 2018 Surgeon (s) CLEVE KUMAR MD [employer] Assembler (s): N/A Post-Operative Diagnosis bilateral, direct inguinal herniae, left being recurrent Procedure Performed robotic assisted repair of bilateral inguinal herniae with mesh. Description of Procedure Anesthesia Type: General Estimated blood loss (mL): minimal Specimen(s) collected/removed none Description of the Procedure Indication for the procedure: This gentleman presented with symptomatic, bilateral inguinal herniae, the left one being recurrent. He had undergone laparoscopic repair of the left inguinal hernia several years ago with mesh placement. Due to symptoms, it was felt reasonable to repair the recurrent hernia and the de pillo inguinal hernia on the right side, using robotic assistance with mesh reinforcement. Informed consent was obtained after reviewing the details of surgery and increased incidence of hematoma and bleeding due to recent anticoagulation therapy. In addition, increased morbidity due to cardiovascular disease was also highlighted. Description of the procedures: He was placed supine on the operative table and general anesthesia induced. A gram of Ancef was administered intravenously as prophylaxis against wound infection. Sequential compression devices were placed around his legs, to minimize the risk of venous thrombosis. A Ivy catheter was placed to decompress the bladder during surgery. It was removed at the end of the operation. Abdomen was prepared and draped in the usual sterile manner. Pneumoperitoneum was established using a Veress needle introduced over the supraumbilical region. Intra-abdominal pressure was maintained initially at 15 mmHg, using carbon dioxide insufflation. A 12 mm trocar was placed and anatomy visualized using the high definition, 3-dimensional laparoscope, associated with da Seth system. The recurrence was found to be of direct variety, medial to the previous mesh, that appeared to be intact. A similar direct hernia of larger size was found on the right side. Under direct view, I placed an 8 mm trocar over each side of the abdomen and the patient was turned into steep Trendelenburg position, to allow displacement of loops of bowel out of the pelvis. The robotic system was then docked in place. I began the dissection on the right side. Small bowel contained within the hernia was reduced by incising the peritoneum, without any iatrogenic injury. Preperitoneal space was then entered, dissecting from a lateral to medial direction. Phill's ligament was identified and the cord structures were protected. Extraperitoneal fat contained within the direct defect was reduced as well. On the left side, preperitoneal space was entered without displacing the pre- existing mesh. The defect measured about 2 cm in diameter, being of a direct hernia variety. The contents had been reduced by insufflation and Trendelenburg position. Inferior epigastric artery on the left side had to be controlled using clips to allow dissection, that was tedious, due to previous surgery. Intra-abdominal pressure was reduced initially to 11 mmHg, to allow closure of the defects. This was accomplished using 20V LOC sutures with robotic assistance, incorporating the transversalis fascia without much tension. Subsequently, a pre-shaped, low profile mesh made of polypropylene ( 3-D lite), measuring 15 cm in length by 9 cm in width was used on each side. The mesh was secured to Phill's ligament and the lateral abdominal musculature with 2-0 Vicryl sutures with the robotic assistance without constricting any nerves. Peritoneum was then reconstituted using 20V LOC sutures with the robotic assistance. Hemostasis was satisfactory and the operation concluded. The fascia over the 12 mm incision was closed using #1 Vicryl. Skin incisions were closed using 4-0 Vicryl, in a subcuticular fashion. He tolerated the procedure well, was extubated in the operating room and taken to the recovery room in a stable condition. Findings of the Procedure See op report Allergies and Home Medications Allergies Coded Allergies: No Known Drug Allergies (Unverified , 10/07/18) Home Medications Acetaminophen 325 Mg Tablet, 650 MG PO Q4H PRN for PAIN-MILD, (Reported) TAKES 2 (325MG) TABLETS Aspirin 81 Mg Tablet.dr, 81 MG PO DAILY, (Reported) Atorvastatin Calcium 20 Mg Tablet, 20 MG PO HS, (Reported) Biotin 5,000 Mcg Tab.rapdis, 5,000 MCG PO DAILY, (Reported) Cholecalciferol (Vitamin D3) 2,000 Unit Capsule, 2,000 UNIT PO DAILY, (Reported) Clopidogrel Bisulfate 75 Mg Tablet, 75 MG PO DAILY, (Reported) Eucalyptus Oil/Menthol/Camphor 50 Gm Oint...g., TP DAILY, (Reported) APPLY TO FINGER AND TOENAILS FOR NAIL FUNGUS Ferrous Sulfate 325 Mg Tablet, 325 MG PO DAILY, (Reported) L.acidoph & Paracasei,B.lactis 1 Each Capsule, 1 CAP PO 1800, (Reported) Levothyroxine Sodium 50 Mcg Tablet, 50 MCG PO HS, (Reported) Loperamide HCl 2 Mg Capsule, 2 MG PO Q6H PRN for DIARRHEA, (Reported) Losartan Potassium 50 Mg Tablet, 50 MG PO DAILY, (Reported) HOLD AND NOTIFY PHYSICIAN FOR SBP LESS THAN 100 AND/OR DBP LESS THAN 60 Metoprolol Tartrate 25 Mg Tablet, 12.5 MG PO BID, (Reported) TAKES 1/2 (25MG) TABLET HOLD AND NOTIFY PHYSICIAN FOR SBP LESS THAN 100 AND/ OR DBP LESS THAN 60 Omeprazole 40 Mg Capsule.dr, 40 MG PO DAILY, (Reported) Tamsulosin HCl 0.4 Mg Cap.er.24h, 0.4 MG PO 0900, (Reported) Vits A and D/White Pet/Lanolin 42.5 Gm Oint...g., TP DAILY, (Reported) WASH BILAT LEGT WITH SOAP AND WATER, PAT DRY, APPLY A+D OINT. Patient Home Medication List Home Medication List Reviewed: Yes Copy Copies To 1: GHULAM PARKER MD,CLEVE Win MD Oct 08, 2018 09:09
--- NOTE | 2018-10-08 09:10 | Progress Note-Standard ---
Standard Progress Note Progress Notes/Assess & Plan Date Seen by a Provider: Oct 08, 2018 Time Seen by a Provider: 09:09 Progress/Assessment & Plan doing well. Could be discharged back to snf facility Final Diagnosis bilateral inguinal herniae CLEVE KUMAR MD Oct 08, 2018 09:10
[2018-10-08] MEDS: HYDROcodone/APAP 5 MG/325 MG (LORTAB) TAB PO PRN (09:11)
[2018-10-08] MEDS ORDERED: ACHD5005 PO (09:12)
[2018-10-08] MEDS: meTOprolol TARTRATE 25 MG (LOPRESSOR) TABLET PO SCH (09:12)
--- NOTE | 2018-10-08 09:13 | Discharge Inst-Simple/Standard ---
Discharge Inst-Standard Discharge Medications New, Converted or Re-Newed RX: RX on Chart Patient Instructions/Follow Up Plan of Care/Instructions/FU: resume aspirin and plavix on Friday. Follow-up with me in 3 weeks Activity as Tolerated: No Goal: no lifting over 10 pounds Discharge Diet: No Restrictions CLEVE KUMAR MD Oct 08, 2018 09:13
--- NOTE | 2018-10-08 10:15 | NUR ---
CM/SS sent discharge information to [facility]. [facility] will transport at 1pm this day. RNing and patient updated.
== END 2018-10-08 13:10 ==
LOC: SDC 06:41 → 4TH 12:15 → SDC 10-08 13:10
PROVIDERS: ATTEND Surgery
DX: K40.91 Unilateral inguinal hernia, without obstruction or gangrene, recurrent (principal); K40.90 Unilateral inguinal hernia, without obstruction or gangrene, not specified as recurrent; I25.10 Atherosclerotic heart disease of native coronary artery without angina pectoris; I12.9 Hypertensive chronic kidney disease with stage 1 through stage 4 chronic kidney disease, or unspecified chronic kidney disease; N18.9 Chronic kidney disease, unspecified; E03.9 Hypothyroidism, unspecified; E78.5 Hyperlipidemia, unspecified; I73.9 Peripheral vascular disease, unspecified; G62.9 Polyneuropathy, unspecified; Z79.82 Long term (current) use of aspirin; Z79.02 Long term (current) use of antithrombotics/antiplatelets; Z95.5 Presence of coronary angioplasty implant and graft; Z79.899 Other long term (current) drug therapy
CPT/HCPCS: 36415; 71046; 85025; 87081; 94010

== ENCOUNTER → 2019-01-08 | Outpatient (CLI) | payer MEDICAID ==
[~2019-01-08] MED LIST changes: +ACET325T49 PO; +ACHD5005 PO; +CLOP75TA69 PO; +FERR-23 PO
== END ==
LOC: WOUNDCARE 11:24
PROVIDERS: ATTEND Surgery
DX: L97.212 Non-pressure chronic ulcer of right calf with fat layer exposed (principal); I87.331 Chronic venous hypertension (idiopathic) with ulcer and inflammation of right lower extremity; I70.232 Atherosclerosis of native arteries of right leg with ulceration of calf; I87.322 Chronic venous hypertension (idiopathic) with inflammation of left lower extremity
CPT/HCPCS: 99213

== ENCOUNTER → 2019-01-13 | Outpatient (CLI) | payer MEDICAID | LOC: WOUNDCARE 14:53 | PROVIDERS: ATTEND Surgery | DX: I70.232 Atherosclerosis of native arteries of right leg with ulceration of calf (principal); I87.331 Chronic venous hypertension (idiopathic) with ulcer and inflammation of right lower extremity; L97.212 Non-pressure chronic ulcer of right calf with fat layer exposed; I87.322 Chronic venous hypertension (idiopathic) with inflammation of left lower extremity | CPT/HCPCS: 99212 ==

== ENCOUNTER → 2019-01-18 | Outpatient (CLI) | payer MEDICAID | LOC: WOUNDCARE 14:58 | PROVIDERS: ATTEND Surgery | DX: I70.232 Atherosclerosis of native arteries of right leg with ulceration of calf (principal); I87.331 Chronic venous hypertension (idiopathic) with ulcer and inflammation of right lower extremity; L97.212 Non-pressure chronic ulcer of right calf with fat layer exposed; I70.235 Atherosclerosis of native arteries of right leg with ulceration of other part of foot; L97.412 Non-pressure chronic ulcer of right heel and midfoot with fat layer exposed; I87.322 Chronic venous hypertension (idiopathic) with inflammation of left lower extremity | CPT/HCPCS: 99212 ==

== ENCOUNTER → 2019-01-25 | Outpatient (CLI) | payer MEDICAID | LOC: WOUNDCARE 14:57 | PROVIDERS: ATTEND Surgery | DX: I70.235 Atherosclerosis of native arteries of right leg with ulceration of other part of foot (principal); I87.323 Chronic venous hypertension (idiopathic) with inflammation of bilateral lower extremity; L97.412 Non-pressure chronic ulcer of right heel and midfoot with fat layer exposed | CPT/HCPCS: 99212 ==

== ENCOUNTER → 2019-05-11 | Outpatient (CLI) | payer MEDICAID ==
[~2019-05-11] MED LIST changes: +FAMO-119 PO; +FURO-125 PO; +POTA10CA43 PO; +TAMS0.4C98 PO
== END ==
LOC: WOUNDCARE 12:23
PROVIDERS: ATTEND Surgery
DX: I70.261 Atherosclerosis of native arteries of extremities with gangrene, right leg (principal); I87.331 Chronic venous hypertension (idiopathic) with ulcer and inflammation of right lower extremity; L97.212 Non-pressure chronic ulcer of right calf with fat layer exposed; E44.1 Mild protein-calorie malnutrition; I89.0 Lymphedema, not elsewhere classified
CPT/HCPCS: 99213

== ENCOUNTER → 2019-05-18 | Outpatient (CLI) | payer MEDICAID | LOC: WOUNDCARE 13:38 | PROVIDERS: ATTEND Surgery | DX: I70.261 Atherosclerosis of native arteries of extremities with gangrene, right leg (principal); I87.331 Chronic venous hypertension (idiopathic) with ulcer and inflammation of right lower extremity; L97.212 Non-pressure chronic ulcer of right calf with fat layer exposed; E44.1 Mild protein-calorie malnutrition; I89.0 Lymphedema, not elsewhere classified | CPT/HCPCS: 99213 ==

== ENCOUNTER → 2019-05-25 | Outpatient (CLI) | payer MEDICAID | LOC: WOUNDCARE 13:39 | PROVIDERS: ATTEND Surgery | DX: I70.261 Atherosclerosis of native arteries of extremities with gangrene, right leg (principal); L97.212 Non-pressure chronic ulcer of right calf with fat layer exposed; I87.331 Chronic venous hypertension (idiopathic) with ulcer and inflammation of right lower extremity; E44.1 Mild protein-calorie malnutrition; I89.0 Lymphedema, not elsewhere classified | CPT/HCPCS: 11042 ==

== ENCOUNTER 2019-06-01 15:29 | Inpatient (IN) | payer MEDICAID ==
[~2019-06-01] VITALS: Ht 170.2 cm; Wt 60.4 kg
[2019-06-01 15:40] VITALS: BP 184/81
[2019-06-01] MEDS ORDERED: HEParin DRIP 25000 UNIT/500ML 500 ML IV SCH (16:35)
[2019-06-01] MEDS ORDERED: HEParin 1000 UNIT/ML (10ML VIAL) FOR BOLUS IV SCH (16:45)
[2019-06-01] MEDS ORDERED: CLINDAMYCIN INJECTION 300 MG in NS (IVPB) 50 ML IV NR (16:45)
[2019-06-01] MEDS ORDERED: CATHETER FLUSH 10 ML SYR IV PRN (17:00)
[2019-06-01 17:07] LABS: HEMOGLOBIN 11.8 G/DL (13.3-17.7); MEAN PLATELET VOLUME 10.8 FL (7.4-10.4); RED CELL DISTRIBUTION WIDTH 13.6 % (10.0-14.5); WHITE BLOOD COUNT 5.3 10^3/uL (4.3-11.0)
[2019-06-01 17:28] LABS: PROTHROMBIN TIME PATIENT 13.5 SEC (12.2-14.7)
--- NOTE | 2019-06-01 17:31 | Wound Care Assessment ---
Wound Care Assessment Date Seen by Provider: Jun 01, 2019 Time Seen by Provider: 17:30 Chief Complaint Ulcer R calf. HPI The patient is an 84 year old male admitted directly [facility] today for infected R calf ulcer, with cellulitis and the abrupt increase in the severity of the pain in his leg and marked deterioration of the appearance of the wound. The case was discussed with Drs. Hanks and Cait. The patient had infra-geniculate angioplasty 05/12/19 with excellent results, and the suspicion is that this abrupt deterioration represents restenosis or interval occlusion of the artery in question. He is admitted for IV antibiotics, elevation, more aggressive dressing regimen than available in assisted living, close wound observation, and Vascular Service evaluation. Dakin's dressings are ordered. Past Medical History: Admits Heart Disease (CAD, HTN, Ex smoker.), Admits Peripheral Artery Disease (R below knee angioplasty three weeks ago, with follow-up CLARI's showing excellent perfusion.) Smoking Status: Former Smoker Recreational Drug Use: No Alcohol Use: Occasionally Uses Review of Systems Pulmonary: No Dyspnea Cardiovascular: No: Chest Pain Musculoskeletal: leg pain (R, severe, unrelenting) Exam Vital Signs Date Time Temp Pulse Resp B/P (MAP) Pulse Ox O2 Delivery O2 Flow Rate FiO2 06/01/19 15:40 36.6 69 16 184/81 (115) 95 Room Air Capillary Refill : General Appearance: mild distress (from leg pain) Respiratory: no respiratory distress Extremities: other (Infected ulcer, R anterior calf with purulent drainage and surrounding erythema.) Results Laboratory Tests 06/01/19 16:55: White Blood Count 5.3, Red Blood Count 4.13L, Hemoglobin 11.8L, Hematocrit 37L, Mean Corpuscular Volume 89, Mean Corpuscular Hemoglobin 29, Mean Corpuscular Hemoglobin Concent 32, Red Cell Distribution Width 13.6, Platelet Count 293, Mean Platelet Volume 10.8H, Lactic Acid Level 0.79 Assessment/Plan/Dx 1. Acute arterial insufficiency, R leg, with ischemic pain. 2. Infected R calf ulcer, with marked interval deterioration, threatened limb loss. 3. Coronary artery disease. Plan: Admitted to Hospitalist service for IV antibiotics, elevation, aggressive dressing changes, and Vascular Service evaluation. KARLY BECKER MD Jun 01, 2019 17:31
[2019-06-01 17:35] LABS: ALBUMIN 3.7 GM/DL (3.2-4.5); BILIRUBIN,TOTAL 0.3 MG/DL (0.1-1.0); CALCIUM 8.9 MG/DL (8.5-10.1); CREATININE SERUM 1.63 MG/DL (0.60-1.30); TOTAL PROTEIN 6.8 GM/DL (6.4-8.2)
[2019-06-01] MEDS: CEFEPIME 1,000 MG/SWFI 10 ML IV PUSH IV SCH ×4 (18:37→23:54)
[2019-06-01 19:46] VITALS: BP 149/66
[2019-06-01] MEDS: DAKIN'S 1/4 STRENGTH (0.125%) 473 ML BTL TOP SCH (21:46)
[2019-06-02] VITALS: BP 162/76
--- NOTE | 2019-06-02 02:30 | NUR ---
LAB CONTACTED TWICE ABOUT TIMED APTT. LAB TO FLOOR AT 0230.
[2019-06-02 04:00] VITALS: BP 149/66
[2019-06-02] MEDS: CEFEPIME 1,000 MG/SWFI 10 ML IV PUSH IV SCH ×2 (06:31)
[2019-06-02 08:00] VITALS: BP 154/78
[2019-06-02] MEDS: DAKIN'S 1/4 STRENGTH (0.125%) 473 ML BTL TOP SCH (08:53)
[2019-06-02] MEDS ORDERED: NS IV 1000 ML 1,000 ML IV SCH (09:00)
--- NOTE | 2019-06-02 09:03 | Consultation-Cardiology ---
HPI-Cardiology Cardiology Consultation Date of Consultation 06/02/19 Date of Admission Time Seen by Provider: 09:00 Indication: PVD, critical limb ischemia. HPI Patient is an 84 y/o male with history of CAD, peripheral vascular disease. Underwent peripheral angiogram and angioplastly to RLE. Underwent CLARI earlier this month showing improvement. Wound to right calf was healing initially. Was seen in wound care yesterday, had worsening wound to right calf, acute RLE pain, noted to have absent pulse on physical examination. Denies any chest pain or dyspnea. No other complaints at this time. 84 years old gentleman with history of peripheral arterial disease, coronary artery disease, recurrent ischemic foot ulcers, had multiple intervention the p ast last was done about 2 weeks ago with good results showing immediate improvement in CLARI and the pulse and healing the wound, suck to have increasing pain in his leg went to Dr. Shepherd and he was admitted with critical limb ischemia, had diminished pulse, knowing his extensive disease and underlying renal failure patient will need atherectomy and possible stent deployment with possibility of progression to renal failure. Discussed with him the management plan recommended transfer to tertiary care center. Home Medications & Allergies Allergies: Coded Allergies: No Known Drug Allergies (Unverified , 10/07/18) Home Medication List Reviewed: Yes medication list reviewed UNP-Lzdtft-Pucuql Hx Patient Social History Marital Status: single Employed/Student: retired Alcohol Use: Occasionally Uses Recreational Drug Use: No Smoking Status: Former Smoker Type Used: Cigars 2nd Hand Smoke Exposure: No Recent Foreign Travel: No Recent Infectious Disease Expo: No Recent Hopitalizations: Yes (overnight may 12 leg swelling) Physical Abuse Screen: No Sexual Abuse: No Immunizations Up To Date Date of Pneumonia Vaccine: Jun 01, 2018 Date of Influenza Vaccine: Jun 01, 2019 Past Medical History PVD, HTN, Extobaccoism Family Medical History Significant Family History: No Pertinent Family Hx Family Medical Hx noncontributory Review of Systems-General Review of Systems Constitutional: see HPI; No chills, No diaphoresis, No dizziness, No malaise, No weakness EENTM: see HPI; No blurred vision, No double vision, No vision loss Respiratory: no symptoms reported, see HPI; No cough, No dyspnea on exertion, No short of breath Cardiovascular: see HPI; No chest pain; edema, Hx of Intervention; No palpitations, No syncope; vascular heart diseas Gastrointestinal: see HPI; No abdominal pain, No constipation Genitourinary: no symptoms reported; No discharge, No frequency, No hematuria Musculoskeletal: other (RLE pain and edema) Skin: No lesions, No rash; other (ulcer on the right leg) Psychiatric/Neurological: Denies Anxiety, Denies Depressed Reviewed Test Results Reviewed Test Results Lab Laboratory Tests 06/01/19 16:55: White Blood Count 5.3, Red Blood Count 4.13L, Hemoglobin 11.8L, Hematocrit 37L, Mean Corpuscular Volume 89, Mean Corpuscular Hemoglobin 29, Mean Corpuscular Hemoglobin Concent 32, Red Cell Distribution Width 13.6, Platelet Count 293, Mean Platelet Volume 10.8H, Prothrombin Time 13.5, INR Comment 1.0, Activated Partial Thromboplast Time 34, Sodium Level 140, Potassium Level 5.0, Chloride Level 105, Carbon Dioxide Level 28, Anion Gap 7, Blood Urea Nitrogen 25H, Creatinine 1.63H, Estimat Glomerular Filtration Rate 40, BUN/Creatinine Ratio 15, Glucose Level 94, Lactic Acid Level 0.79, Calcium Level 8.9, Corrected Calcium 9.1, Total Bilirubin 0.3, Aspartate Amino Transf (AST/SGOT) 15, Alanine Aminotransferase (ALT/SGPT) 13, Alkaline Phosphatase 94, Total Protein 6.8, Albumin 3.7 06/01/19 20:40: Activated Partial Thromboplast Time 33 06/02/19 02:20: Platelet Count 262, Activated Partial Thromboplast Time > 200*H Physical Exam Physical Exam Vital Signs Vital Signs - First Documented Capillary Refill : Less Than 3 Seconds Height, Weight, BMI Height: 5'10.00" Weight: 137lbs. 2.0oz. 62.276876gs; 20.85 BMI Method:Stated General Appearance: No Apparent Distress, WD/WN, Anxious HEENT: PERRL/EOMI, Normal ENT Inspection Neck: Full Range of Motion, Non Tender, Supple Respiratory: Chest Non Tender, Lungs Clear, Normal Breath Sounds, No Accessory Muscle Use, No Respiratory Distress Cardiovascular: Regular Rate, Rhythm, No Gallop, No JVD, Other (RLE edema, nonhealing would to right calf with absent pedal pulse) Gastrointestinal: Normal Bowel Sounds, Non Tender, Soft Rectal: Deferred Back: No CVA Tenderness Extremity: Calf Tenderness, Inflammation, Other (ulcer on the right leg ) Neurologic/Psychiatric: Alert, Oriented x3, piece dye worker II-XII Norm as Tested A/P-Cardiology Admission Diagnosis Critical limb ischemia PVD CRI CAD HTN Assessment/Plan Critical limb ischemia to RLE- absent pedal pulse on physical examination this morning. C/o RLE pain. Will transfer to Dr. Bell at [place] this morning to undergo peripheral intervention where there is access to vascular surgeon and soda worker as needed, discussed with father Lynsey and Dr. Partt, arrangement were made for the transfer Peripheral vascular disease. Underwent peripheral angiogram on 08/21/2018 Severe multiple segment stenosis in the right SFA with heavy calcification balloon angioplasty then deployment of SUPERA 6 x 150 with excellent results. Subtotal occlusion of the ostial of the right posterior tibial artery on the right with successful balloon angioplasty using 3 x 40 balloon. Severe stenosis at the ostial of the right peroneal artery with successful balloon angioplasty using 3 x 40 balloon. Total occlusion of the anterior tibial artery that was not intervened on Calcified left SFA with moderate stenosis at multiple segment. Having ulcer on right foot, erythema and ulceration, worsening over the past several weeks. Underwent peripheral angiogram on 05/12/19 revealing severe ostial right posterior tibial artery stenosis successful balloon angioplasty using [place] 3 x 60 with good results, mild residual stenosis. Severe ostial right peroneal artery stenosis was successful balloon angioplasty using [place] 3 x 60 with good results, mild residual stenosis. Total occlusion of the anterior tibial artery, no intervention was done due to the fact that the lesion is on the posterior aspect of the leg. Patent stent in the SFA with [id number] disease proximal to the stent and at the ostium of the right SFA. Mild disease at the right common iliac artery.Mild disease at the left lower extremity down to the trifurcation nonobstructive disease. Repeat CLARI done 05/20/19 revealed improvement of CLARI, however, patient developed worsening RLE pain and swelling, nonhealing wound. planning to proceed with peripheral angiogram with left groin access and a tertiary care center Retroperitoneal bleed peritoneal bleed post peripheral angiogram Aug 2018, underwent balloon angioplasty to the left iliac/common femoral artery with resolution of the RP bleed. Coronary artery disease, history of cardiac catheterization with multiple stents in 2009, using 2 stents to the right coronary artery 3.0x12 mm to the proximal right coronary artery Promus stent, 2.5x28 mm Promus stent to the distal right coronary artery. 2.5x12 mm Promus stent to the LAD. Currently asymptomatic, continue to monitor. Most recent stress test November 2017 revealed no ischemia or infarct. Hypertension, good control on current medication, continue to monitor. Hyperlipidemia, continue to monitor lipids Chronic renal insufficiency, Chronic kidney disease stage IV, monitor renal function Pulmonary hypertension, improved, last echocardiogram was done in December 2017 showing pulmonary artery pressure of 50 mmHg. Moderate bilateral carotid stenosis, last ultrasound was done in October 2018, continue to monitor. Venous insufficiency- Patient had small saphenous vein chronic insufficiency with reflux time more than 4.9 seconds, he has chronic venous stasis changes on the right lower extremity. Now has nonhealing wound to RLE. Management as discussed above. History of tobaccoism, has been abstinent since 2009. Encouraged to continue with smoking cessation. Hypothyroidism Thank you for allowing us to participate in the management of Mr. Menon. This is Carmen Porras PA-C, as a scribe for Dr. Chavira. This is Dr. Chavira, I have seen and evaluated father Lynsey , reviewed the notes, performed the exam and interview the patient and made few modifications to the node using Italic font Start her on heparin, restarted aspirin and Plavix, planning to transfer for evaluation for peripheral angiogram Hospital course Patient was admitted to medical floor started on heparin drip, had extensive peripheral arterial disease as described above, had underlying renal insufficiency, will require complex intervention on the right leg possible use of atherectomy then deployment of a stent which could progressing into renal failure, discussed with him the management plan recommended high risk intervention transfer to [facility]. I discussed the management plan with Dr. Pratt who agreed on the transfer, arrangements will be made. Final diagnoses Critical limb ischemia Peripheral arterial disease Coronary artery disease Hypertension Clinical Quality Measures DVT/VTE Risk/Contraindication: Risk Factor Score Per Nursin RFS Level Per Nursing on Admit: 2=Moderate CARMEN MISHRA Jun 02, 2019 09:03 GHULAM CHAVIRA MD Jun 02, 2019 10:32
[2019-06-02] MEDS ORDERED: ACETAMINOPHEN 325 MG TABLET PO PRN (10:30)
--- NOTE | 2019-06-02 10:55 | NUR ---
AFTER TWO REQUESTS THIS MORNING I RECEIVED THE MED LIST FROM THE [facility] AT THIS TIME. DISCHARGE ORDERS HAVE ALREADY BEEN PUT IT SO I DID NOT MAKE ANY CHANGES. THE MEDS ARE CORRECT WITH THE EXCEPTION OF SOME TIMES ON A FEW.
--- NOTE | 2019-06-02 11:00 | NUR ---
Pt is to be transferred via EMS to [facility] per Dr Chavira orders . [facility] one call stated would be later this afternoon around 2 or 3 before they would possibly have a bed available. Face sheet and latest set of VS faxed per request to [facility]. Pt updated on plan of care.
--- NOTE | 2019-06-02 11:00 | NUR ---
LAB CALLED BY THIS RN AND VERIFIED THEY HAD ORDER FOR PTT SCHEDULED AT 1030. LAB STATED THEY HAD THE ORDER AND WOULD BE SENDING STAFF UP SHORTLY.
--- NOTE | 2019-06-02 11:29 | NUR ---
CM/SS spoke with the patient in regards to personal phone numbers he was requesting. CM/SS got the numbers for the patient. The patient stated that he was not expecting to go into the hospital and did not have any other clothes. CM/SS contacted Helene at [facility] [place] they verbalized they will bring clothes over for the patient. Nurse was notified. There are no other needs at this time. Addendum: 06/02/19 at 1134 by ISSA DONIS reviewed / approved
[2019-06-02 12:00] VITALS: BP 172/75
--- NOTE | 2019-06-02 12:14 | NUR ---
RD ASSESSMENT PMHx: CAD, PAD, recurrent ischemic foot ulcers, HTN, HLD, CKD PT INTERACTION: Pt was awake and pleasant during nutrition assessment. Pt states current appetite is not great and has been this way for some time. Pt states following a regular diet at home and having no issues with chewing/swallowing at this time. Pt states no recent issues with n/v at this time. Pt states having chronic diarrhea concerns. Pt states no recent wt changes. "I normally stay around 130-something." Note unable to determine recent wt hx, per chart review. Note pt has R calf ulceration, per chart review. ABNORMAL NUTRITION-RELATED LAB VALUES: Hgb 11.8 (L); Hct 37 (L); BUN 25 (H); cr 1.63 (H) Est. kcal needs: 4787-2874 kcal (30-35 kcal/kg) Est. Pro needs: 72-90 g Pro (1.2-1.5 g Pro/kg) PES STATEMENT: Inadequate protein intake (NI-5.6.1) related to increased protein needs as evidenced by wounds (R calf ulceration) INTERVENTION: Continue with current diet order of Heart Healthy diet. Add Ensure Enlive to meals TID. Provides 350 kcal and 20 g Pro per serving, for perceived benefits of wound healing. Encouraged pt to eat when able. MONITOR/EVALUATE: PO Intake; Plan of Care; Hydration Status; Weight Status; Lab Values Yordy Milan, MS, RD, LD Ext. 133
--- NOTE | 2019-06-02 15:14 | NUR ---
Initial visit: the pt is a resident at [facility]. Strong pastoral rapport established during previous visits. He shared at length about the advent he has been attending, and other situations on his mind related to his erwin and much desired answers to prayers. 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 A family by the last name Lori which lives in [place] takes him to Mass every Friday. He shared he had been trying to dial out to contact them about going to [place] today, but said he was unsuccessful. I shared with him about dialing 9 before phoning outside to local numbers and tested this successfully. When I asked if there was anything further I could do for him, he requested that I bring him two liturgical books form his apartment at [facility]. I met with Azra Qureshi, Bank Guard at the [facility], and she assisted me with gathering other of Frankie's belongings as he communicated with us on speaker phone. I collected the items he requested including: underwear, an undershirt, tooth brush, denture case and denture cream, two toiletry cases, and a button up shirt, cell phone and bone process operator. All of these items were placed in a bag and I delivered them to his room. He thanked me and said "It was Divine inspiration that you came today." He added that he was thankful for our visit because "I could share with you some things that I could not share with anyone else."
--- NOTE | 2019-06-02 15:48 | NUR ---
[facility] notified of transfer. Pt to go to room 210 bed 2 on Cardiology floor at [place]
[2019-06-02 16:30] VITALS: BP 173/79
--- NOTE | 2019-06-02 17:33 | NUR ---
REPORT CALLED AND GIVEN TO RITA MENDOZA AT [facility]. AWAITING FOR EMS.
--- NOTE | 2019-06-02 17:35 | NUR ---
BP 172/[address] PARKER NOTIFIED. NEW MED ORDERS PLACED IN [facility].
[2019-06-02] MEDS ORDERED: meTOprolol TARTRATE 25 MG (LOPRESSOR) TABLET PO NR (17:45)
[2019-06-02] MEDS ORDERED: LOSARTAN 50 MG (COZAAR) TAB PO NR (17:45)
[2019-06-02] MEDS ORDERED: CEFEPIME 1,000 MG/SWFI 10 ML IV PUSH IV SCH ×2 (18:00)
[2019-06-02] MEDS ORDERED: meTOprolol TARTRATE 25 MG (LOPRESSOR) TABLET PO SCH (21:00)
[2019-06-02] MEDS ORDERED: LEVOTHYROXINE 50 MCG (LEVOTHROID) TAB PO SCH (21:00)
[2019-06-03] MEDS ORDERED: KCL 10 MEQ TAB (MICRO K) PO SCH (07:00)
[2019-06-03] MEDS ORDERED: FERROUS SULF 325 MG (IRON) TAB PO SCH (08:00)
[2019-06-03] MEDS ORDERED: TAMSULOSIN 0.4 MG (FLOMAX) CAP PO SCH (09:00)
[2019-06-03] MEDS ORDERED: FUROSEMIDE 20 MG (LASIX) TAB PO SCH (09:00)
[2019-06-03] MEDS ORDERED: FAMOTIDINE 20 MG (PEPCID) TABLET PO SCH (09:00)
[2019-06-03] MEDS ORDERED: ASPIRIN E.C. 81 MG (ECOTRIN) TAB PO SCH (09:00)
[2019-06-03] MEDS ORDERED: NON-FORMULARY MEDICATION 1 EA EA (Potassium Chloride 10 MEQ) PO SCH (09:00)
[2019-06-03] MEDS ORDERED: CLOPIDOGREL 75 MG (PLAVIX) TABLET PO SCH (09:00)
[2019-06-03] MEDS ORDERED: LOSARTAN 50 MG (COZAAR) TAB PO SCH (09:00)
[2019-06-03] MEDS ORDERED: NON-FORMULARY MEDICATION 1 EA EA (Famotidine (Pepcid) 20 MG) PO SCH (09:00)
[2019-06-03] MEDS ORDERED: NON-FORMULARY MEDICATION 1 EA EA (Losartan Potassium 50 MG) PO SCH (09:00)
== END 2019-06-02 18:33 | disposition short-term general hospital (02) | DRG 300 ==
LOC: 4TH 15:38
PROVIDERS: ADMIT Family Medicine; ATTEND Family Medicine
DX: I70.232 Atherosclerosis of native arteries of right leg with ulceration of calf (principal); L97.219 Non-pressure chronic ulcer of right calf with unspecified severity; I12.9 Hypertensive chronic kidney disease with stage 1 through stage 4 chronic kidney disease, or unspecified chronic kidney disease; N18.4 Chronic kidney disease, stage 4 (severe); L03.115 Cellulitis of right lower limb; I25.10 Atherosclerotic heart disease of native coronary artery without angina pectoris; E78.5 Hyperlipidemia, unspecified; I27.20 Pulmonary hypertension, unspecified; I65.23 Occlusion and stenosis of bilateral carotid arteries; I87.2 Venous insufficiency (chronic) (peripheral); E03.9 Hypothyroidism, unspecified; Z87.891 Personal history of nicotine dependence; Z95.5 Presence of coronary angioplasty implant and graft; Z95.828 Presence of other vascular implants and grafts
CPT/HCPCS: 36415; 80053; 83605; 85027; 85049; 85610; 85730

== ENCOUNTER → 2019-06-01 | Outpatient (CLI) | payer MEDICAID | LOC: WOUNDCARE 13:39 | PROVIDERS: ATTEND Surgery | DX: I70.261 Atherosclerosis of native arteries of extremities with gangrene, right leg (principal); I87.331 Chronic venous hypertension (idiopathic) with ulcer and inflammation of right lower extremity; L97.212 Non-pressure chronic ulcer of right calf with fat layer exposed; L03.115 Cellulitis of right lower limb; E44.1 Mild protein-calorie malnutrition; I89.0 Lymphedema, not elsewhere classified | CPT/HCPCS: 99213 ==

== ENCOUNTER → 2019-06-09 | Outpatient (CLI) | payer OTHER | LOC: WOUNDCARE 12:49 | PROVIDERS: ATTEND Surgery | DX: L97.212 Non-pressure chronic ulcer of right calf with fat layer exposed (principal); I70.232 Atherosclerosis of native arteries of right leg with ulceration of calf; I87.331 Chronic venous hypertension (idiopathic) with ulcer and inflammation of right lower extremity; E44.1 Mild protein-calorie malnutrition; I89.0 Lymphedema, not elsewhere classified; I96 Gangrene, not elsewhere classified | CPT/HCPCS: 99212 ==

== ENCOUNTER → 2019-06-15 | Outpatient (CLI) | payer MEDICAID, OTHER | LOC: WOUNDCARE 14:39 | PROVIDERS: ATTEND Surgery | DX: I70.261 Atherosclerosis of native arteries of extremities with gangrene, right leg (principal); I87.331 Chronic venous hypertension (idiopathic) with ulcer and inflammation of right lower extremity; L97.212 Non-pressure chronic ulcer of right calf with fat layer exposed; E44.1 Mild protein-calorie malnutrition; I89.0 Lymphedema, not elsewhere classified | CPT/HCPCS: 11042 ==

== ENCOUNTER 2019-06-22 15:09 | Outpatient (RCR) | payer MEDICAID, OTHER ==
[~2019-06-22 15:09] MED LIST changes: -ACET325C5 PO; +ACET325C7 PO; +OMEP40CA27 PO; -OMEP40CA36 PO; -TAMS0.4C98 PO; +TMSL.4C PO
== END 2019-09-20 | disposition home or self-care (01) ==
LOC: CARD 15:09
PROVIDERS: ATTEND Physician Assistant
DX: I44.1 Atrioventricular block, second degree (principal); I49.9 Cardiac arrhythmia, unspecified; I25.10 Atherosclerotic heart disease of native coronary artery without angina pectoris; I10 Essential (primary) hypertension; E78.5 Hyperlipidemia, unspecified
CPT/HCPCS: 93225; 93226

== ENCOUNTER → 2019-06-22 | Outpatient (CLI) | payer MEDICAID | LOC: WOUNDCARE 13:36 | PROVIDERS: ATTEND Surgery | DX: I70.261 Atherosclerosis of native arteries of extremities with gangrene, right leg (principal); L97.212 Non-pressure chronic ulcer of right calf with fat layer exposed; I87.331 Chronic venous hypertension (idiopathic) with ulcer and inflammation of right lower extremity; E44.1 Mild protein-calorie malnutrition; I89.0 Lymphedema, not elsewhere classified ==

== ENCOUNTER → 2019-06-30 | Outpatient (CLI) | payer MEDICAID ==
[~2019-06-30] MED LIST changes: +ACET325C5 PO; -ACET325C7 PO; -OMEP40CA27 PO; +OMEP40CA36 PO; +TAMS0.4C98 PO; -TMSL.4C PO
== END ==
LOC: WOUNDCARE 13:01
PROVIDERS: ATTEND Surgery
DX: L97.212 Non-pressure chronic ulcer of right calf with fat layer exposed (principal); I70.232 Atherosclerosis of native arteries of right leg with ulceration of calf; I87.331 Chronic venous hypertension (idiopathic) with ulcer and inflammation of right lower extremity; E44.1 Mild protein-calorie malnutrition; I89.0 Lymphedema, not elsewhere classified; I96 Gangrene, not elsewhere classified
CPT/HCPCS: 11042

== ENCOUNTER → 2019-07-06 | Outpatient (CLI) | payer MEDICAID | LOC: WOUNDCARE 13:01 | PROVIDERS: ATTEND Surgery | DX: L97.212 Non-pressure chronic ulcer of right calf with fat layer exposed (principal); I70.232 Atherosclerosis of native arteries of right leg with ulceration of calf; I87.331 Chronic venous hypertension (idiopathic) with ulcer and inflammation of right lower extremity; E44.1 Mild protein-calorie malnutrition; I89.0 Lymphedema, not elsewhere classified; I96 Gangrene, not elsewhere classified | CPT/HCPCS: 11042 ==

== ENCOUNTER → 2019-07-07 | Outpatient (CLI) | payer MEDICAID ==
[~2019-07-07] VITALS: Ht 180 cm; Wt 61.0 kg
[~2019-07-07] MED LIST changes: +CATHETER FLUSH 10 ML SYR IV PRN; +REGADENOSON 0.4 MG/5 ML SYR (LEXISCAN) IV ONE
[2019-07-07 09:34] VITALS: BP 155/77
--- NOTE | 2019-07-08 09:15 | STRESS TEST ---
DATE OF SERVICE: 07/07/2019 LEXISCAN MYOVIEW STRESS TEST REPORT Baseline heart rate is 67. Baseline blood pressure was 160/90. Baseline EKG is sinus rhythm with no ischemic changes. In summary, the patient was injected with 10.22 mCi of technetium-99 Myoview and the resting images were obtained. Then, the patient received 0.4 mg of Lexiscan followed by 28.3 mCi of technetium-99 Myoview. During the test, the patient had transient episode of ventricular trigeminy. No significant EKG changes were noted. The resting and stress images were reviewed and compared in the short axis, horizontal long axis, and vertical long axis views. Review of the images showed diaphragmatic attenuation with mild decreased uptake at the mid to apical inferior wall and inferoseptum with no significant reversibility. SSS is 4, SDS 1, TID value 0.92. On the gated images, the left ventricle appeared to be normal size with normal contractility. Calculated ejection fraction 70%. CONCLUSION: 1. The patient tolerated Lexiscan well. 2. Transient episode of ventricular trigeminy noted during test. 3. Diaphragmatic attenuation with typical male pattern with no significant ischemia or infarction on SPECT images. 4. Normal left ventricular size with normal contractility. Calculated ejection fraction 70%. Job ID: [id number] DocumentID: [id number] Dictated Date: 07/08/2019 06:49:52 Lozenge Maker Date: 07/08/2019 09:14:43 Dictated By: GHULAM PARKER MD
== END ==
LOC: RAD 07:44
PROVIDERS: ATTEND Internal Medicine Cardiovascular Disease
DX: I10 Essential (primary) hypertension (principal); I25.10 Atherosclerotic heart disease of native coronary artery without angina pectoris; E78.5 Hyperlipidemia, unspecified
CPT/HCPCS: 78452; 93017

== ENCOUNTER → 2019-07-13 | Outpatient (CLI) | payer MEDICAID ==
[~2019-07-13] MED LIST changes: -CATHETER FLUSH 10 ML SYR IV PRN; -REGADENOSON 0.4 MG/5 ML SYR (LEXISCAN) IV ONE
== END ==
LOC: WOUNDCARE 13:17
PROVIDERS: ATTEND Surgery
DX: I70.261 Atherosclerosis of native arteries of extremities with gangrene, right leg (principal); L97.212 Non-pressure chronic ulcer of right calf with fat layer exposed; I87.331 Chronic venous hypertension (idiopathic) with ulcer and inflammation of right lower extremity; E44.1 Mild protein-calorie malnutrition; I89.0 Lymphedema, not elsewhere classified
CPT/HCPCS: 11042

== ENCOUNTER → 2019-07-20 | Outpatient (CLI) | payer MEDICAID | LOC: WOUNDCARE 13:26 | PROVIDERS: ATTEND Surgery | DX: I70.261 Atherosclerosis of native arteries of extremities with gangrene, right leg (principal); L97.212 Non-pressure chronic ulcer of right calf with fat layer exposed; I87.331 Chronic venous hypertension (idiopathic) with ulcer and inflammation of right lower extremity; I89.0 Lymphedema, not elsewhere classified; E44.1 Mild protein-calorie malnutrition | CPT/HCPCS: 11042 ==

== ENCOUNTER → 2019-07-27 | Outpatient (CLI) | payer MEDICAID | LOC: WOUNDCARE 13:29 | PROVIDERS: ATTEND Surgery | DX: L97.212 Non-pressure chronic ulcer of right calf with fat layer exposed (principal); I70.232 Atherosclerosis of native arteries of right leg with ulceration of calf; I87.331 Chronic venous hypertension (idiopathic) with ulcer and inflammation of right lower extremity; E44.1 Mild protein-calorie malnutrition; I89.0 Lymphedema, not elsewhere classified; I96 Gangrene, not elsewhere classified | CPT/HCPCS: 11042 ==

== ENCOUNTER → 2019-08-03 | Outpatient (CLI) | payer MEDICAID | LOC: WOUNDCARE 13:21 | PROVIDERS: ATTEND Surgery | DX: I70.261 Atherosclerosis of native arteries of extremities with gangrene, right leg (principal); L97.212 Non-pressure chronic ulcer of right calf with fat layer exposed; I89.0 Lymphedema, not elsewhere classified; E44.1 Mild protein-calorie malnutrition; I87.331 Chronic venous hypertension (idiopathic) with ulcer and inflammation of right lower extremity | CPT/HCPCS: 11042 ==

== ENCOUNTER → 2019-08-17 | Outpatient (CLI) | payer MEDICAID | LOC: WOUNDCARE 13:09 | PROVIDERS: ATTEND Surgery | DX: I70.232 Atherosclerosis of native arteries of right leg with ulceration of calf (principal); L97.212 Non-pressure chronic ulcer of right calf with fat layer exposed; I89.0 Lymphedema, not elsewhere classified; E44.1 Mild protein-calorie malnutrition; I87.331 Chronic venous hypertension (idiopathic) with ulcer and inflammation of right lower extremity | CPT/HCPCS: 11042 ==

== ENCOUNTER → 2019-08-31 | Outpatient (CLI) | payer MEDICAID ==
[~2019-08-31] MED LIST changes: -ACET325C5 PO; +ACET325C7 PO; +OMEP40CA27 PO; -OMEP40CA36 PO; -TAMS0.4C98 PO; +TMSL.4C PO
== END ==
LOC: WOUNDCARE 13:14
PROVIDERS: ATTEND Orthopaedic Surgery Hand Surgery
DX: L97.212 Non-pressure chronic ulcer of right calf with fat layer exposed (principal); I70.232 Atherosclerosis of native arteries of right leg with ulceration of calf; I87.331 Chronic venous hypertension (idiopathic) with ulcer and inflammation of right lower extremity; E44.1 Mild protein-calorie malnutrition; I89.0 Lymphedema, not elsewhere classified; I96 Gangrene, not elsewhere classified
CPT/HCPCS: 11042

== ENCOUNTER → 2019-09-07 | Outpatient (CLI) | payer MEDICAID | LOC: WOUNDCARE 13:20 | PROVIDERS: ATTEND Orthopaedic Surgery Hand Surgery | DX: L97.212 Non-pressure chronic ulcer of right calf with fat layer exposed (principal); I70.232 Atherosclerosis of native arteries of right leg with ulceration of calf; I87.331 Chronic venous hypertension (idiopathic) with ulcer and inflammation of right lower extremity; E44.1 Mild protein-calorie malnutrition; I89.0 Lymphedema, not elsewhere classified; R21 Rash and other nonspecific skin eruption | CPT/HCPCS: 11042 ==

== ENCOUNTER → 2019-09-15 | Outpatient (CLI) | payer MEDICAID | LOC: WOUNDCARE 12:32 | PROVIDERS: ATTEND Orthopaedic Surgery Hand Surgery | DX: L97.212 Non-pressure chronic ulcer of right calf with fat layer exposed (principal); I70.232 Atherosclerosis of native arteries of right leg with ulceration of calf; I87.331 Chronic venous hypertension (idiopathic) with ulcer and inflammation of right lower extremity; E44.1 Mild protein-calorie malnutrition; I89.0 Lymphedema, not elsewhere classified; R21 Rash and other nonspecific skin eruption | CPT/HCPCS: 11042 ==

== ENCOUNTER → 2019-09-29 | Outpatient (CLI) | payer MEDICAID | LOC: WOUNDCARE 12:55 | PROVIDERS: ATTEND Orthopaedic Surgery Hand Surgery | DX: L97.212 Non-pressure chronic ulcer of right calf with fat layer exposed (principal); I70.232 Atherosclerosis of native arteries of right leg with ulceration of calf; I87.331 Chronic venous hypertension (idiopathic) with ulcer and inflammation of right lower extremity; E44.1 Mild protein-calorie malnutrition; I89.0 Lymphedema, not elsewhere classified | CPT/HCPCS: 11042 ==

== ENCOUNTER → 2019-10-06 | Outpatient (CLI) | payer MEDICAID | LOC: WOUNDCARE 12:51 | PROVIDERS: ATTEND Orthopaedic Surgery Hand Surgery | DX: I70.261 Atherosclerosis of native arteries of extremities with gangrene, right leg (principal); L97.212 Non-pressure chronic ulcer of right calf with fat layer exposed; I87.331 Chronic venous hypertension (idiopathic) with ulcer and inflammation of right lower extremity; E44.1 Mild protein-calorie malnutrition; I89.0 Lymphedema, not elsewhere classified; S91.301A Unspecified open wound, right foot, initial encounter | CPT/HCPCS: 99213 ==

== ENCOUNTER → 2019-10-13 | Outpatient (CLI) | payer MEDICAID | LOC: WOUNDCARE 12:58 | PROVIDERS: ATTEND Orthopaedic Surgery Hand Surgery | DX: L97.212 Non-pressure chronic ulcer of right calf with fat layer exposed (principal); I70.232 Atherosclerosis of native arteries of right leg with ulceration of calf; I87.331 Chronic venous hypertension (idiopathic) with ulcer and inflammation of right lower extremity; E44.1 Mild protein-calorie malnutrition; I89.0 Lymphedema, not elsewhere classified; L97.512 Non-pressure chronic ulcer of other part of right foot with fat layer exposed; I70.235 Atherosclerosis of native arteries of right leg with ulceration of other part of foot; I96 Gangrene, not elsewhere classified | CPT/HCPCS: 97597 ==

== ENCOUNTER → 2019-10-20 | Outpatient (CLI) | payer MEDICAID | LOC: WOUNDCARE 12:45 | PROVIDERS: ATTEND Surgery | DX: L97.211 Non-pressure chronic ulcer of right calf limited to breakdown of skin (principal); I70.232 Atherosclerosis of native arteries of right leg with ulceration of calf; I87.331 Chronic venous hypertension (idiopathic) with ulcer and inflammation of right lower extremity; E44.1 Mild protein-calorie malnutrition; I89.0 Lymphedema, not elsewhere classified; I96 Gangrene, not elsewhere classified | CPT/HCPCS: 99213 ==

== ENCOUNTER → 2019-10-27 | Outpatient (CLI) | payer MEDICAID | LOC: WOUNDCARE 12:46 | PROVIDERS: ATTEND Surgery | DX: L97.211 Non-pressure chronic ulcer of right calf limited to breakdown of skin (principal); I70.232 Atherosclerosis of native arteries of right leg with ulceration of calf; I87.331 Chronic venous hypertension (idiopathic) with ulcer and inflammation of right lower extremity; E44.1 Mild protein-calorie malnutrition; I89.0 Lymphedema, not elsewhere classified; I96 Gangrene, not elsewhere classified | CPT/HCPCS: 99212 ==

== ENCOUNTER → 2020-03-14 | Outpatient (CLI) | payer MEDICAID | LOC: WOUNDCARE 16:01 | PROVIDERS: ATTEND Surgery | DX: L97.212 Non-pressure chronic ulcer of right calf with fat layer exposed (principal); I87.331 Chronic venous hypertension (idiopathic) with ulcer and inflammation of right lower extremity; I89.0 Lymphedema, not elsewhere classified; E44.1 Mild protein-calorie malnutrition; I70.232 Atherosclerosis of native arteries of right leg with ulceration of calf; I96 Gangrene, not elsewhere classified ==

== ENCOUNTER → 2020-03-23 | Outpatient (CLI) | payer MEDICAID | LOC: WOUNDCARE 14:36 | PROVIDERS: ATTEND Surgery | DX: I87.331 Chronic venous hypertension (idiopathic) with ulcer and inflammation of right lower extremity (principal); L97.212 Non-pressure chronic ulcer of right calf with fat layer exposed; I70.232 Atherosclerosis of native arteries of right leg with ulceration of calf; I89.0 Lymphedema, not elsewhere classified; E44.1 Mild protein-calorie malnutrition; Z88.1 Allergy status to other antibiotic agents; Z88.2 Allergy status to sulfonamides; Z87.891 Personal history of nicotine dependence; I12.0 Hypertensive chronic kidney disease with stage 5 chronic kidney disease or end stage renal disease; N18.3 Chronic kidney disease, stage 3 (moderate); M10.9 Gout, unspecified; E11.40 Type 2 diabetes mellitus with diabetic neuropathy, unspecified; Z95.5 Presence of coronary angioplasty implant and graft ==

== ENCOUNTER → 2020-04-06 | Outpatient (CLI) | payer MEDICAID | LOC: WOUNDCARE 13:57 | PROVIDERS: ATTEND Surgery | DX: I70.261 Atherosclerosis of native arteries of extremities with gangrene, right leg (principal); L97.212 Non-pressure chronic ulcer of right calf with fat layer exposed; I87.331 Chronic venous hypertension (idiopathic) with ulcer and inflammation of right lower extremity; I89.0 Lymphedema, not elsewhere classified; E44.1 Mild protein-calorie malnutrition ==

== ENCOUNTER → 2020-04-12 | Outpatient (CLI) | payer MEDICAID | LOC: WOUNDCARE 12:24 | PROVIDERS: ATTEND Surgery | DX: I70.261 Atherosclerosis of native arteries of extremities with gangrene, right leg (principal); I87.331 Chronic venous hypertension (idiopathic) with ulcer and inflammation of right lower extremity; I89.0 Lymphedema, not elsewhere classified; E44.1 Mild protein-calorie malnutrition; L97.312 Non-pressure chronic ulcer of right ankle with fat layer exposed ==

== ENCOUNTER → 2020-04-21 | Outpatient (CLI) | payer MEDICAID ==
[~2020-04-21] MED LIST changes: +ASPI-1238 PO; -ASPI-983 PO
== END ==
LOC: WOUNDCARE 10:15
PROVIDERS: ATTEND Surgery
DX: I70.261 Atherosclerosis of native arteries of extremities with gangrene, right leg (principal); I87.331 Chronic venous hypertension (idiopathic) with ulcer and inflammation of right lower extremity; L97.212 Non-pressure chronic ulcer of right calf with fat layer exposed; L97.511 Non-pressure chronic ulcer of other part of right foot limited to breakdown of skin; L22 Diaper dermatitis; I89.0 Lymphedema, not elsewhere classified; E44.1 Mild protein-calorie malnutrition

== ENCOUNTER → 2020-04-27 | Outpatient (CLI) | payer MEDICAID | LOC: WOUNDCARE 11:30 | PROVIDERS: ATTEND Surgery | DX: B35.8 Other dermatophytoses (principal); L97.212 Non-pressure chronic ulcer of right calf with fat layer exposed; I87.331 Chronic venous hypertension (idiopathic) with ulcer and inflammation of right lower extremity; I70.232 Atherosclerosis of native arteries of right leg with ulceration of calf; I89.0 Lymphedema, not elsewhere classified; E44.1 Mild protein-calorie malnutrition; I96 Gangrene, not elsewhere classified ==

== ENCOUNTER → 2020-05-04 | Outpatient (CLI) | payer MEDICAID | LOC: WOUNDCARE 15:38 | PROVIDERS: ATTEND Surgery | DX: L97.212 Non-pressure chronic ulcer of right calf with fat layer exposed (principal); I87.331 Chronic venous hypertension (idiopathic) with ulcer and inflammation of right lower extremity; I70.232 Atherosclerosis of native arteries of right leg with ulceration of calf; I89.0 Lymphedema, not elsewhere classified; I96 Gangrene, not elsewhere classified ==

== ENCOUNTER → 2020-05-16 | Outpatient (CLI) | payer MEDICAID | LOC: WOUNDCARE 15:00 | PROVIDERS: ATTEND Surgery | DX: I87.331 Chronic venous hypertension (idiopathic) with ulcer and inflammation of right lower extremity (principal); I70.232 Atherosclerosis of native arteries of right leg with ulceration of calf; I89.0 Lymphedema, not elsewhere classified; L97.212 Non-pressure chronic ulcer of right calf with fat layer exposed ==

== ENCOUNTER → 2020-06-01 | Outpatient (CLI) | payer MEDICAID | LOC: WOUNDCARE 14:37 | PROVIDERS: ATTEND Surgery | DX: L97.212 Non-pressure chronic ulcer of right calf with fat layer exposed (principal); I87.331 Chronic venous hypertension (idiopathic) with ulcer and inflammation of right lower extremity; I89.0 Lymphedema, not elsewhere classified ==

== ENCOUNTER → 2020-06-15 | Outpatient (CLI) | payer MEDICAID | LOC: WOUNDCARE 15:31 | PROVIDERS: ATTEND Surgery | DX: I87.331 Chronic venous hypertension (idiopathic) with ulcer and inflammation of right lower extremity (principal); I96 Gangrene, not elsewhere classified; L97.312 Non-pressure chronic ulcer of right ankle with fat layer exposed; L97.322 Non-pressure chronic ulcer of left ankle with fat layer exposed; I89.0 Lymphedema, not elsewhere classified ==

== ENCOUNTER → 2020-06-22 | Outpatient (CLI) | payer MEDICAID | LOC: WOUNDCARE 15:07 | PROVIDERS: ATTEND Surgery | DX: I87.331 Chronic venous hypertension (idiopathic) with ulcer and inflammation of right lower extremity (principal); L97.312 Non-pressure chronic ulcer of right ankle with fat layer exposed; L97.212 Non-pressure chronic ulcer of right calf with fat layer exposed; I89.0 Lymphedema, not elsewhere classified; I96 Gangrene, not elsewhere classified ==

== ENCOUNTER → 2020-07-04 | Outpatient (CLI) | payer MEDICAID | LOC: WOUNDCARE 15:52 | PROVIDERS: ATTEND Surgery | DX: I96 Gangrene, not elsewhere classified (principal); L97.312 Non-pressure chronic ulcer of right ankle with fat layer exposed; L97.212 Non-pressure chronic ulcer of right calf with fat layer exposed; I87.321 Chronic venous hypertension (idiopathic) with inflammation of right lower extremity; I89.0 Lymphedema, not elsewhere classified ==

== ENCOUNTER → 2020-07-18 | Outpatient (CLI) | payer MEDICAID | LOC: WOUNDCARE 15:30 | PROVIDERS: ATTEND Surgery | DX: L97.212 Non-pressure chronic ulcer of right calf with fat layer exposed (principal); I87.331 Chronic venous hypertension (idiopathic) with ulcer and inflammation of right lower extremity; I89.0 Lymphedema, not elsewhere classified ==

== ENCOUNTER → 2021-06-27 | Outpatient (CLI) | payer MEDICAID ==
[~2021-06-27] MED LIST changes: +CATHETER FLUSH 10 ML SYR IV PRN; -OMEP40CA27 PO; +OMEP40CA6 PO; +REGADENOSON 0.4 MG/5 ML SYR (LEXISCAN) IV ONE
[2021-06-27 13:12] VITALS: BP 155/68
--- NOTE | 2021-06-27 15:32 | Cardiology Stress Test Report ---
Stress Test Report Date of Procedure/Referring: Date of Procedure: Jun 27, 2021 PCP Ghulam Chavira MD Admitting Physician Frankie Rascon MD Indications: CAD Baseline Heart Rate: 64 Baseline Blood Pressure: Blood Pressure Systolic: 155 Blood Pressure Diastolic: 68 Baseline Vitals Vital Signs Date Time Temp Pulse Resp B/P (MAP) Pulse Ox O2 Delivery O2 Flow Rate FiO2 06/27/21 13:12 64 18 155/68 (97) 98 Room Air Baseline EKG: Baseline EKG: NSR Summary After explaining the procedure to the patient, he signed a consent and then brought to the stress nuclear laboratory. Patient received 0.4 mg Lexiscan for stress test, ECG, heart rate and blood pressure were monitored continuously. Resting and stress dose of radio tracer were injected, imaging was acquired and reviewed in short axis, horizontal long axis and vertical long axis views. TID: 1.11 SSS: 10 SDS: 0 EF: 74 1. Patient tolerated Lexiscan well 2. Baseline EKG showing sinus rhythm with occasional PVCs persisted during test 3. Diaphragmatic attenuation with decreased uptake involving the whole inferior wall with no significant reversibility 4. Normal left ventricular size, preserved contractility, ejection fraction 74% GHULAM CHAVIRA MD Jun 27, 2021 15:32
== END ==
LOC: CARD 10:27
PROVIDERS: ATTEND Internal Medicine Cardiovascular Disease
DX: I11.9 Hypertensive heart disease without heart failure (principal); I08.0 Rheumatic disorders of both mitral and aortic valves; I25.10 Atherosclerotic heart disease of native coronary artery without angina pectoris
CPT/HCPCS: 78452; 93017; 93306; A9502

== ENCOUNTER → 2021-11-07 | Outpatient (CLI) | payer MEDICAID ==
[~2021-11-07] MED LIST changes: -CATHETER FLUSH 10 ML SYR IV PRN; -REGADENOSON 0.4 MG/5 ML SYR (LEXISCAN) IV ONE
== END ==
LOC: WOUNDCARE 08:51
PROVIDERS: ATTEND Family Medicine
DX: I70.235 Atherosclerosis of native arteries of right leg with ulceration of other part of foot (principal); L97.512 Non-pressure chronic ulcer of other part of right foot with fat layer exposed; I87.311 Chronic venous hypertension (idiopathic) with ulcer of right lower extremity; I89.0 Lymphedema, not elsewhere classified; N18.4 Chronic kidney disease, stage 4 (severe); D63.1 Anemia in chronic kidney disease
CPT/HCPCS: A6197; A6212; G0463; 99214

== ENCOUNTER → 2021-11-12 | Outpatient (CLI) | payer MEDICAID | LOC: WOUNDCARE 12:36 | PROVIDERS: ATTEND Family Medicine | DX: L97.512 Non-pressure chronic ulcer of other part of right foot with fat layer exposed (principal); I70.235 Atherosclerosis of native arteries of right leg with ulceration of other part of foot; I87.311 Chronic venous hypertension (idiopathic) with ulcer of right lower extremity; I89.0 Lymphedema, not elsewhere classified; N18.4 Chronic kidney disease, stage 4 (severe); D63.1 Anemia in chronic kidney disease; L03.115 Cellulitis of right lower limb; I96 Gangrene, not elsewhere classified | CPT/HCPCS: 87070; 87077; 87205; G0463; 99213 ==

== ENCOUNTER → 2021-11-21 | Outpatient (CLI) | payer MEDICAID | LOC: WOUNDCARE 10:53 | PROVIDERS: ATTEND Family Medicine | DX: L97.512 Non-pressure chronic ulcer of other part of right foot with fat layer exposed (principal); I70.235 Atherosclerosis of native arteries of right leg with ulceration of other part of foot; I87.311 Chronic venous hypertension (idiopathic) with ulcer of right lower extremity; I89.0 Lymphedema, not elsewhere classified; N18.4 Chronic kidney disease, stage 4 (severe); D63.1 Anemia in chronic kidney disease; L03.115 Cellulitis of right lower limb; I96 Gangrene, not elsewhere classified | CPT/HCPCS: 11042; G0463 ==

== ENCOUNTER → 2021-11-27 | Outpatient (CLI) | payer MEDICAID | LOC: WOUNDCARE 10:48 | PROVIDERS: ATTEND Family Medicine | DX: I70.235 Atherosclerosis of native arteries of right leg with ulceration of other part of foot (principal); L97.512 Non-pressure chronic ulcer of other part of right foot with fat layer exposed; I87.311 Chronic venous hypertension (idiopathic) with ulcer of right lower extremity; I89.0 Lymphedema, not elsewhere classified; N18.4 Chronic kidney disease, stage 4 (severe); D63.1 Anemia in chronic kidney disease; L03.115 Cellulitis of right lower limb; I96 Gangrene, not elsewhere classified | CPT/HCPCS: 99213 ==

== ENCOUNTER → 2021-12-04 | Outpatient (CLI) | payer MEDICAID | LOC: WOUNDCARE 10:54 | PROVIDERS: ATTEND Family Medicine | DX: I70.235 Atherosclerosis of native arteries of right leg with ulceration of other part of foot (principal); L97.512 Non-pressure chronic ulcer of other part of right foot with fat layer exposed; I87.312 Chronic venous hypertension (idiopathic) with ulcer of left lower extremity; I89.0 Lymphedema, not elsewhere classified; E11.22 Type 2 diabetes mellitus with diabetic chronic kidney disease; N18.4 Chronic kidney disease, stage 4 (severe); D63.1 Anemia in chronic kidney disease; E11.52 Type 2 diabetes mellitus with diabetic peripheral angiopathy with gangrene | CPT/HCPCS: 99212 ==

== ENCOUNTER → 2021-12-11 | Outpatient (CLI) | payer MEDICAID ==
[~2021-12-11] MED LIST changes: +ALBU0.63 IH; +ASCO-262 PO; +BIOT5CAP9 PO; +CHOL500050 PO; +DEXT1DRO7 OU; +DIPH25CA48 PO; +FLUT15.845 NS; +GUAI400T86 PO; +HYDR25TA4 PO; +LOPE-175 PO; +LORA10TA7 PO; +LOSA25TA41 PO; +METO5TAB6 PO; +PNT400TCR PO; +[UNRECOGNIZED DRUG - SUPPLY] TOP
== END ==
LOC: WOUNDCARE 10:55
PROVIDERS: ATTEND Family Medicine
DX: L97.512 Non-pressure chronic ulcer of other part of right foot with fat layer exposed (principal); I70.235 Atherosclerosis of native arteries of right leg with ulceration of other part of foot; I87.311 Chronic venous hypertension (idiopathic) with ulcer of right lower extremity; I89.0 Lymphedema, not elsewhere classified; N18.4 Chronic kidney disease, stage 4 (severe); D63.1 Anemia in chronic kidney disease; I96 Gangrene, not elsewhere classified
CPT/HCPCS: 99213

== ENCOUNTER 2021-12-14 08:00 | Outpatient (CLI) | payer MEDICAID ==
[2021-12-14] VITALS (12 sets, daily range): BP systolic 100–126; BP diastolic 50–84
[~2021-12-14] VITALS: Ht 171.5 cm; Wt 54.7 kg
[2021-12-14 07:44] LABS: HEMATOCRIT 36 % (40-54); HEMOGLOBIN 11.8 g/dL (13.3-17.7); MEAN CORPUSCULAR HEMOGLOBIN 30 pg (25-34); MEAN CORPUSCULAR HGB CONC 33 g/dL (32-36); MEAN CORPUSCULAR VOLUME 90 fL (80-99); MEAN PLATELET VOLUME 12.1 fL (9.0-12.2); PLATELET COUNT 255 10^3/uL (130-400); WHITE BLOOD COUNT 9.9 10^3/uL (4.3-11.0)
[2021-12-14 07:50] LABS: INR 0.9 (0.8-1.4); PROTHROMBIN TIME PATIENT 12.2 SEC (12.2-14.7)
[2021-12-14 07:51] LABS: POTASSIUM 3.4 MMOL/L (3.6-5.0)
[2021-12-14 07:52] LABS: CALCIUM 10.4 MG/DL (8.5-10.1)
[2021-12-14 07:54] LABS: TOTAL PROTEIN 7.3 GM/DL (6.4-8.2)
[2021-12-14 07:55] LABS: BILIRUBIN,TOTAL 0.3 MG/DL (0.1-1.0)
[2021-12-14 07:58] LABS: CREATININE SERUM 2.81 MG/DL (0.60-1.30)
[~2021-12-14 08:00] MED LIST changes: -ALBU0.63 IH; -ASCO-262 PO; -BIOT5CAP9 PO; -CHOL500050 PO; -DEXT1DRO7 OU; -DIPH25CA48 PO; -FLUT15.845 NS; -GUAI400T86 PO; +HEParin (CATH LAB) 2,000 ML IV ONE; -HYDR25TA4 PO; +LIDOCAINE 1% INJ 20 ML VIAL ONE; -LOPE-175 PO; -LORA10TA7 PO; -LOSA25TA41 PO; -METO5TAB6 PO; +MIDAZOLAM 5 MG/5 ML (VERSED) VIAL ONE; +NS IV 1000 ML 1,000 ML IV SCH; +NS IV 1000 ML 1,000 ML ONE; -PNT400TCR PO; -[UNRECOGNIZED DRUG - SUPPLY] TOP; +fentaNYL INJ 100 MCG/2 ML AMP ONE
--- NOTE | 2021-12-14 08:05 | Diagnostic Imaging Report ---
INDICATION: Abnormal stress test. EXAMINATION: Chest 12/14/2021 COMPARISON: 05/12/2019 FINDINGS: Single view chest Deformity right chest wall stable from previous imaging. Lungs hyperinflated. No pneumothorax. No effusions. Heart and pulmonary vasculature stable. IMPRESSION: 1. Findings of COPD. Dictated by: Dictated on workstation # [id number]
[2021-12-14] MEDS ORDERED: FLUT15.845 NS (08:09)
[2021-12-14] MEDS ORDERED: DIPH25CA48 PO (08:09)
[2021-12-14] MEDS ORDERED: PNT400TCR PO (08:09)
[2021-12-14] MEDS ORDERED: BIOT5CAP9 PO (08:09)
[2021-12-14] MEDS ORDERED: [UNRECOGNIZED DRUG - SUPPLY] TOP (08:09)
[2021-12-14] MEDS ORDERED: ASCO-262 PO (08:09)
[2021-12-14] MEDS ORDERED: LOSA25TA41 PO (08:09)
[2021-12-14] MEDS ORDERED: LORA10TA7 PO (08:09)
[2021-12-14] MEDS ORDERED: HYDR25TA4 PO (08:09)
[2021-12-14] MEDS ORDERED: CHOL500050 PO (08:09)
[2021-12-14] MEDS ORDERED: DEXT1DRO7 OU (08:09)
[2021-12-14] MEDS ORDERED: LOPE-175 PO (08:09)
[2021-12-14] MEDS ORDERED: METO5TAB6 PO (08:09)
[2021-12-14] MEDS ORDERED: GUAI400T86 PO (08:09)
[2021-12-14] MEDS ORDERED: ALBU0.63 IH (08:09)
--- NOTE | 2021-12-14 08:09 | Conscious Sedation/ASA ---
Conscious Sedation Pre-Proced Time 08:09 ASA Score 3 For ASA 3 and 4: Consider anesthesia and medical clearance. Also, for patients with a history of failed moderate sedation consider anesthesia. Airway Lungs Heart ASA score ASA 1: a normal healthy patient ASA 2: a patient with a mild systemic disease (mid diabetes, controlled hypertension, obesity x ASA 3: a patient with a severe systemic disease that limits activity (angina, COPD, prior Myocardial infarction) ASA 4: a patient with an incapacitating disease that is a constant threat to life (CHF, renal failure) ASA 5: a moribund patient not expected to survive 24 hrs. (ruptured aneurysm) ASA 6: a declared brain- patient whose organs are being harvested. For emergent operations, add the letter E after the classification Mallampati Classification Grade 3 Sedation Plan Analgesia, Amnesia, Plan communicated to team members, Discussed options with patient/fam, Discussed risks with patient/fam The patient is an appropriate candidate to undergo the planned procedure, sedation, and anesthesia. The patient immediately re-assessed prior to indication. GHULAM PARKER MD Dec 14, 2021 08:09
[2021-12-14 08:13] LABS: ERYTHROCYTE SEDIMENTATION RATE 39 MM/HR (0-30)
[2021-12-14] MEDS ORDERED: HEParin 1000 UNIT/ML (10ML VIAL) FOR BOLUS ONE (08:42)
--- NOTE | 2021-12-14 08:52 | Discharge Inst-Post CATH ---
Discharge Inst-CATH/EP Problems Reviewed?: Yes Post Cardiac Cath/EP D/C Inst Follow Up/Plan Appointment with Dr. Chavira's office in 2 to 4 weeks <b>CARDIAC CATH/EP PROCEDURE DISCHARGE INSTRUCTIONS</b> ACTIVITY * Go Home directly and rest. * Limit activity of the leg (or wrist if it was used) for 7 days including aer obics, swimming, jogging, bicycling, etc. * Restrict stair-climbing for 7 days if possible, if not, climb up with your non-cath leg, then bring together on the same step. * Avoid lifting, pushing, pulling or excessive movement of the affected extremi ty for 7 days. * Customary sexual activity may be resumed after 2 days-use caution not to use a position that strains or causes pain to the affected extremity. * No driving for 24 hours. * NO SMOKING. * Avoid straining for bowel movements for 7 days. * Gentle walking on level ground is allowed. * Returning to work will depend on the type of procedure and the results. Your doctor will discuss this with you. CALL YOUR DOCTOR FOR ANY OF THE FOLLOWING: *If bleeding from the puncture site occurs- Apply gentle pressure to site with clean cloth and call your doctor or EMS. * If a knot or lump forms under the skin, increases in size, or causes pain. * If bruising appears to be worsening or moving further down your leg instead of disappearing. * Temperature above 101 F. CARE OF YOUR GROIN INCISION; * Bruising or purple discoloration of the skin near the puncture site is common. * You may shower only, no bathtub bathing for 5 days. Be careful to avoid slipping as your leg may feel stiff. * If a closure device was used on your femoral artery, please see the attached guide regarding care of the device and your leg. * Leave dressing on FOR 24 hours. CARE OF YOUR WRIST INCISION; * Bruising or purple discoloration of the skin near the puncture site is common. * You may shower. * DO NOT submerge wrist. * Leave dressing on FOR 24 hours. GHULAM CHAVIRA MD Dec 14, 2021 08:52
--- NOTE | 2021-12-14 08:59 | Peripheral Report ---
Peripheral Report Physician (s)/Truck Bench Mechanic (s) Physician GHULAM PARKER MD Pre-Procedure Diagnosis Pre-Procedure Diagnosis: Non healing foot ulcer Post-Procedure Note Procedure Start Date: Dec 14, 2021 Name of Procedure: Bilateral lower extremities runoff Third order Additional imaging x2 Findings/Procedure Note PROCEDURE NOTE: 86 years old gentleman with history of coronary artery disease, had baseline abnormal stress test, had extensive peripheral arterial disease, previous history of multiple intervention, developed new ulcer that is not healing on the right lower extremity. I scheduled him for peripheral angiogram, was planning to evaluate his coronary anatomy but on preop labs creatinine was significantly elevated. I decided to minimize the exposure to contrast as much as possible and due to the fact that he had a fixed defect at the inferior wall on the stress test I did not proceed with coronary angiogram. After explaining the procedure to the patient, all pros and cons were explained, all questions were answered. The patient signed the consent and then he was placed on the cardiac catheterization laboratory. The patient was placed on the cardiac catheterization laboratory. Groin was prepped SL fashion local anesthesia was used. Sheath placed in the left femoral artery, rim catheter was used to cross over then I advanced a straight catheter to the proximal SFA and did angiogram then advanced the catheter to the tibial artery and did DSA imaging of the trifurcation then DSA imaging was done again at the level of the foot. I flushed the catheter and measure the pressure at the tibial artery, SFA, iliac and aorta. Then I did runoff to the left leg through the sheath using 4 mL of contrast. At the end of the procedure sheath was removed and closure device deployed FINDINGS: Right lower extremity: Multiple stents in the SFA with mild to moderate disease, patent artery down to the trifurcation. The anterior tibial artery is occluded reconstructed faintly by collaterals distally, the posterior tibial artery and peroneal arteries are both patent. There is gradual slight pressure increase during pullback. Aortic pressure 106/38/64 Common iliac 100/39/61 SFA 89/33/58 Tibioperoneal trunk 59/32/44 Left lower extremity: Heavily calcified artery with total occlusion at the mid SFA reconstructed by collaterals at the popliteal artery. CONCLUSIONS: 1. Right lower extremity: Patent stent in the mid and distal SFA, calcified artery, mild to moderate disease. Occluded anterior tibial artery reconstructed faintly by collaterals distally at the level of the foot. Patent with mild to moderate disease in the posterior tibial artery and peroneal artery. 2. Left lower extremity: Total occlusion of the left mid SFA reconstructed by collaterals at the popliteal level with heavily calcified artery DISCUSSION AND RECOMMENDATIONS: Due to his underlying renal insufficiency, conservative management is recom mended. The anterior tibial artery is fairly small artery. His creatinine is significantly elevated. I will discontinue losartan and discontinue Zaroxolyn. During recovery patient had transient episode of bradycardia with second degree AV block, Mobitz I Anesthesia Type: Conscious Sedation Estimated blood loss (mL): 15 ml Contrast Amount: 10 ml Total Radiation Dose: 34 mGy Post-Procedure Diagnosis Post-operative diagnosis: Nonhealing foot ulcer Peripheral arterial disease Coronary artery disease Chronic kidney disease stage IV GHULAM PARKER MD Dec 14, 2021 08:59
[2021-12-14] MEDS ORDERED: PATIENT MAY USE OWN MEDS, ALL PO SCH (09:00)
[2021-12-14] MEDS ORDERED: NS IV 1000 ML 1,000 ML IV SCH (09:00)
== END 2021-12-14 14:30 ==
LOC: CATH 08:00 → SDC 09:05 → CATH 14:30
PROVIDERS: ATTEND Internal Medicine Cardiovascular Disease
DX: J44.9 Chronic obstructive pulmonary disease, unspecified (principal); I25.10 Atherosclerotic heart disease of native coronary artery without angina pectoris; I12.9 Hypertensive chronic kidney disease with stage 1 through stage 4 chronic kidney disease, or unspecified chronic kidney disease; E78.2 Mixed hyperlipidemia; N18.4 Chronic kidney disease, stage 4 (severe); I73.9 Peripheral vascular disease, unspecified; I65.23 Occlusion and stenosis of bilateral carotid arteries; E03.9 Hypothyroidism, unspecified; R94.39 Abnormal result of other cardiovascular function study
CPT/HCPCS: 36247; 36248; 71045; 75716; 80053; 80061; 82607; 84134; 85610; 85652; 85730; 86141; 87081; 93005; C1760; C1769; C1887 ×2; C1894; 36415; 85027

== ENCOUNTER → 2021-12-18 | Outpatient (CLI) | payer MEDICAID ==
[~2021-12-18] MED LIST changes: +ALBU0.63 IH; +ASCO-262 PO; +BIOT5CAP9 PO; +CHOL500050 PO; +DEXT1DRO7 OU; +DIPH25CA48 PO; +FLUT15.845 NS; +GUAI400T86 PO; -HEParin (CATH LAB) 2,000 ML IV ONE; +HYDR25TA4 PO; -LIDOCAINE 1% INJ 20 ML VIAL ONE; +LOPE-175 PO; +LORA10TA7 PO; +LOSA25TA41 PO; +METO5TAB6 PO; -MIDAZOLAM 5 MG/5 ML (VERSED) VIAL ONE; -NS IV 1000 ML 1,000 ML IV SCH; -NS IV 1000 ML 1,000 ML ONE; +PNT400TCR PO; +[UNRECOGNIZED DRUG - SUPPLY] TOP; -fentaNYL INJ 100 MCG/2 ML AMP ONE
== END ==
LOC: WOUNDCARE 10:52
PROVIDERS: ATTEND Family Medicine
DX: L97.512 Non-pressure chronic ulcer of other part of right foot with fat layer exposed (principal); I70.235 Atherosclerosis of native arteries of right leg with ulceration of other part of foot; I87.311 Chronic venous hypertension (idiopathic) with ulcer of right lower extremity; I89.0 Lymphedema, not elsewhere classified; N18.4 Chronic kidney disease, stage 4 (severe); D63.1 Anemia in chronic kidney disease; I96 Gangrene, not elsewhere classified
CPT/HCPCS: A6212; G0463; 99213

== ENCOUNTER → 2022-01-08 | Outpatient (CLI) | payer MEDICAID | LOC: WOUNDCARE 11:00 | PROVIDERS: ATTEND Family Medicine | DX: L97.512 Non-pressure chronic ulcer of other part of right foot with fat layer exposed (principal); I70.235 Atherosclerosis of native arteries of right leg with ulceration of other part of foot; I87.311 Chronic venous hypertension (idiopathic) with ulcer of right lower extremity; I89.0 Lymphedema, not elsewhere classified; N18.4 Chronic kidney disease, stage 4 (severe); D63.1 Anemia in chronic kidney disease; I96 Gangrene, not elsewhere classified | CPT/HCPCS: 99212 ==

== ENCOUNTER → 2022-01-21 | Outpatient (CLI) | payer MEDICAID | LOC: WOUNDCARE 10:46 | PROVIDERS: ATTEND Family Medicine | DX: L97.512 Non-pressure chronic ulcer of other part of right foot with fat layer exposed (principal); I70.235 Atherosclerosis of native arteries of right leg with ulceration of other part of foot; I87.311 Chronic venous hypertension (idiopathic) with ulcer of right lower extremity; I89.0 Lymphedema, not elsewhere classified; N18.4 Chronic kidney disease, stage 4 (severe); D63.1 Anemia in chronic kidney disease | CPT/HCPCS: 99213 ==

== ENCOUNTER → 2022-01-29 | Outpatient (CLI) | payer MEDICAID | LOC: WOUNDCARE 10:54 | PROVIDERS: ATTEND Family Medicine | DX: L97.512 Non-pressure chronic ulcer of other part of right foot with fat layer exposed (principal); I70.235 Atherosclerosis of native arteries of right leg with ulceration of other part of foot; I87.311 Chronic venous hypertension (idiopathic) with ulcer of right lower extremity; I89.0 Lymphedema, not elsewhere classified; N18.4 Chronic kidney disease, stage 4 (severe); D63.1 Anemia in chronic kidney disease | CPT/HCPCS: 99213 ==

== ENCOUNTER → 2022-02-05 | Outpatient (CLI) | payer MEDICAID | LOC: WOUNDCARE 09:50 | PROVIDERS: ATTEND Family Medicine | DX: I89.0 Lymphedema, not elsewhere classified (principal); N18.4 Chronic kidney disease, stage 4 (severe); D63.1 Anemia in chronic kidney disease | CPT/HCPCS: 99213 ==

== ENCOUNTER 2022-03-07 01:44 | Inpatient (IN) | payer MEDICAID ==
[~2022-03-07] VITALS: Ht 170.2 cm; Wt 55.5 kg
[~2022-03-07 01:44] MED LIST changes: -FLUT15.845 NS; +FLUT15.845 NSEACH
--- NOTE | 2022-03-07 02:47 | ED Fall/Injury ---
General Chief Complaint: Trauma-Non Activation Stated Complaint: FALL History of Present Illness Date Seen by Provider: Mar 07, 2022 Time Seen by Provider: 01:49 Initial Comments 87-year-old male [facility] and brought in by EMS for complaints of a fall which occurred yesterday evening. Staff in the [facility] found patient on the floor but they are unsure how long he has been on the ground. Patient is unsure what happened but he remembered a little dizzy and then fell. Denies neck pain facial pain, abdominal pain. Patient was diagnosed with COVID just yesterday. Patient thinks his symptoms may be due to COVID. Allergies and Home Medications Allergies Coded Allergies: No Known Drug Allergies (Unverified , 10/07/18) Patient Home Medication List Home Medication List Reviewed: Yes Acetaminophen (Acetaminophen) 325 Mg Tablet, 650 MG PO Q4H PRN for PAIN-MILD, (Reported) Entered as Reported by: CRISTELA TORREZ on 10/07/18 1021 Albuterol Sulfate (Albuterol Sulfate) 0.63 Mg/3 Ml Vial.neb, 1 EA IH BID PRN for WHEEZING, (Reported) Entered as Reported by: IMAN ROMERO on 12/14/21 0809 Ascorbate Calcium (Vitamin C) 500 Mg Tablet, 500 MG PO BID, (Reported) Entered as Reported by: IMAN ROMERO on 12/14/21 0809 Aspirin (Aspirin EC) 81 Mg Tablet.dr, 81 MG PO DAILY, (Reported) Entered as Reported by: CRISTELA TORREZ on 10/07/18 1021 Atorvastatin Calcium (Atorvastatin Calcium) 20 Mg Tablet, 20 MG PO DAILY, (Reported) Entered as Reported by: ABHISHEK OCHOA on 08/21/18 0953 Biotin (Biotin) 5 Mg Capsule, 10 MG PO DAILY, (Reported) Entered as Reported by: IMAN ROMERO on 12/14/21 0809 Cholecalciferol (Vitamin D3) (Vitamin D3) 125 Mcg (5000 Unit) Capsule, 125 MCG PO DAILY, (Reported) Entered as Reported by: IMAN ROMERO on 12/14/21 0809 Clopidogrel Bisulfate (Plavix) 75 Mg Tablet, 75 MG PO DAILY, (Reported) Entered as Reported by: JARRET DEWEY on 05/12/19 0928 Dextran 70/Hypromellose (Artificial Tears) 1 Each Droperette, 1 DROP OU DAILY, (Reported) Entered as Reported by: IMAN ROMERO on 12/14/21 0809 Diphenhydramine HCl (Diphenhydramine HCl) 25 Mg Capsule, 25 MG PO HS, (Reported) Entered as Reported by: IMAN ROMERO on 12/14/21 08 Famotidine (Pepcid) 20 Mg Tablet, 20 MG PO DAILY, (Reported) Entered as Reported by: JARRET DEWEY on 05/12/19 0928 Ferrous Sulfate (Ferrousul) 325 Mg Tablet, 325 MG PO DAILY, (Reported) Entered as Reported by: CRISTELA TORREZ on 10/07/18 1021 Fluticasone Propionate (Fluticasone Propionate) 50 Mcg/Actuation [place].susp, 1 SPRAY NS PRN PRN for ALLERGIES, (Reported) Entered as Reported by: IMAN ROMERO on 12/14/21 08 Furosemide (Lasix) 20 Mg Tablet, 20 MG PO DAILY, (Reported) Entered as Reported by: JARRET DEWEY on 05/12/19 0928 Guaifenesin (Guaifenesin) 400 Mg Tablet, 400 MG PO Q4HRS PRN for COUGH, (Reported) Entered as Reported by: IMAN ROMERO on 12/14/21 08 Hydrochlorothiazide (Hydrochlorothiazide) 25 Mg Tablet, 25 MG PO DAILY, (Reported) Entered as Reported by: IMAN ROMERO on 12/14/21 08 L.acidoph & Paracasei,B.lactis (Probiotic) 1 Each Capsule, 1 CAP PO DAILY, (Reported) Entered as Reported by: MARIBEL SEVILLA on 10/06/18 1140 Levothyroxine Sodium (Levothyroxine Sodium) 50 Mcg Tablet, 50 MCG PO HS, (Reported) Entered as Reported by: CRISTELA TORREZ on 08/24/18 0947 Loperamide HCl (Imodium A-D) 2 Mg Capsule, 2 MG PO Q6HRS PRN for DIARRHEA, (Re ported) Entered as Reported by: IMAN ROMERO on 12/14/21 0809 Loratadine (Loratadine) 10 Mg Tablet, 10 MG PO DAILY PRN for ALLERGIES, (Reported) Entered as Reported by: IMAN ROMERO on 12/14/21 0809 Pentoxifylline (Pentoxifylline) 400 Mg Tablet.er, 400 MG PO TID, (Reported) Entered as Reported by: IMAN ROMERO on 12/14/21 0809 Tamsulosin HCl (Flomax) 0.4 Mg Cap, 0.4 MG PO DAILY, (Reported) Entered as Reported by: JARRET DEWEY on 05/12/19 0928 Vits A and D/White Pet/Lanolin (A and D Ointment) 42.5 Gm Oint...g., TP 3XWEEKLY, (Reported) Entered as Reported by: MARIBEL SEVILLA on 10/06/18 1140 [Exu Dry] , 1 EACH TOP PRN PRN for WEEPING EDEMA, (Reported) Entered as Reported by: IMAN ROMERO on 12/14/21 0809 Review of Systems Review of Systems Constitutional: dizziness Eyes: No Symptoms Reported Ears, Nose, Mouth, Throat: no symptoms reported Respiratory: no symptoms reported Cardiovascular: no symptoms reported Gastrointestinal: no symptoms reported Genitourinary: no symptoms reported Musculoskeletal: no symptoms reported Past Ipuhuuz-Okolyp-Tufbpz Hx Patient Social History Tobacco Use?: No Substance use?: No Alcohol Use?: No Immunizations Up To Date PED Vaccines UTD: No Seasonal Allergies Seasonal Allergies: Yes (hayfever) Past Medical History Surgeries: Yes Cardiac Respiratory: No Currently Using CPAP: No Currently Using BIPAP: No Cardiac: Yes Hypertension, Peripheral Vascular Neurological: No Reproductive Disorders: No Sexually Transmitted Disease: No Genitourinary: No Gastrointestinal: No Musculoskeletal: No Endocrine: Yes Hypothyroidsim HEENT: No Loss of Vision: Bilateral Hearing Impairment: Hard of Hearing Cancer: No Psychosocial: No Integumentary: No Blood Disorders: No Adverse Reaction/Blood Tranf: No Family Medical History No Pertinent Family Hx Physical Exam Vital Signs Vital Signs - First Documented 03/07/22 02:45 Temp 36.9 Pulse 85 Resp 20 B/P (MAP) 115/105 (108) Pulse Ox 91 O2 Delivery Room Air Capillary Refill : Height, Weight, BMI Height: 5'10.00" Weight: 137lbs. 2.0oz. 62.114523xy; 18.59 BMI Method:Stated General Appearance: WD/WN, no apparent distress HEENT: PERRL/EOMI, normal ENT inspection, TMs normal Neck: non-tender, full range of motion, supple, normal inspection Cardiovascular: normal peripheral pulses, regular rate, rhythm Respiratory: chest non-tender, lungs clear, normal breath sounds Gastrointestinal: normal bowel sounds, non tender, soft Pelvic: normal external exam Back: normal inspection, no CVA tenderness, no vertebral tenderness Extremities: normal range of motion Neurologic/Psychiatric: no motor/sensory deficits, alert, normal mood/affect, oriented x 3 Skin: normal color Lymphatic: no adenopathy Progress/Results/Core Measures Results/Orders Lab Results Laboratory Tests Test 03/07/22 02:00 Range/Units Glucometer 133 H 70-110 MG/DL My Orders Orders - MACKENZIE MATA MD Ct Head/Cervical Spine Wo (03/07/22 02:04) Ua Culture If Indicated (03/07/22 02:04) Troponin I [place] (03/07/22 04:22) Ekg Tracing (03/07/22 04:22) Vital Signs/I&O 03/07/22 02:45 Temp 36.9 Pulse 85 Resp 20 B/P (MAP) 115/105 (108) Pulse Ox 91 O2 Delivery Room Air Progress Progress Note : Progress Note 1. FALL: SMALL SUBARACHNOID HEMORRHAGE - CT HEAD & C-SPINE: Small amount of acute subarachnoid hemorrhage in the left vertex. No herniation or midline shift. - UA: unable to provide sample - Troponin/ EKG - CBC/ CMP/ COag panel - Will admit to ICU. DIscussed with Hospitalist Diagnostic Imaging Diagonstic Imaging: CT Plain Films/CT/US/NM/MRI: c-spine, head Departure Communication (Admissions) Time/Spoke to Admitting Phy: 04:[address] Hanks and will admit to ICU Impression Primary Impression: Fall Qualified Codes: W19.XXXA - Unspecified fall, initial encounter Additional Impression: Subarachnoid hemorrhage Disposition: 30 STILL A PATIENT Condition: Stable Admissions Decision to Admit Reason: Admit from ER (General) Decision to Admit/Date: Mar 07, 2022 Time/Decision to Admit Time: 04:02 Departure-Patient Inst. Referrals: VERA EARLY MD (PCP/Family) Primary Care Physician MACKENZIE MATA MD Mar 07, 2022 02:47
[2022-03-07 04:58] LABS: BASOPHILS % (AUTO) 0 % (0-10); EOSINOPHILS % (AUTO) 0 % (0-10); HEMATOCRIT 30 % (40-54); HEMOGLOBIN 9.7 g/dL (13.3-17.7); LYMPHOCYTES # (AUTO) 0.3 10^3/uL (1.0-4.0); LYMPHOCYTES % (AUTO) 5 % (12-44); MEAN CORPUSCULAR HEMOGLOBIN 30 pg (25-34); MEAN CORPUSCULAR HGB CONC 33 g/dL (32-36); MEAN CORPUSCULAR VOLUME 91 fL (80-99); MEAN PLATELET VOLUME 11.5 fL (9.0-12.2); MONOCYTES # (AUTO) 0.9 10^3/uL (0.0-1.0); MONOCYTES % (AUTO) 14 % (0-12); NEUTROPHILS # (AUTO) 5.2 10^3/uL (1.8-7.8); NEUTROPHILS % (AUTO) 80 % (42-75); PLATELET COUNT 218 10^3/uL (130-400); WHITE BLOOD COUNT 6.5 10^3/uL (4.3-11.0)
[2022-03-07 05:03] LABS: ALBUMIN 3.5 GM/DL (3.2-4.5); PROTHROMBIN TIME PATIENT 13.3 SEC (12.2-14.7)
[2022-03-07 05:04] LABS: POTASSIUM 3.6 MMOL/L (3.6-5.0)
[2022-03-07 05:05] LABS: CALCIUM 9.7 MG/DL (8.5-10.1)
[2022-03-07 05:06] LABS: TOTAL PROTEIN 6.5 GM/DL (6.4-8.2)
[2022-03-07 05:08] LABS: BILIRUBIN,TOTAL 0.3 MG/DL (0.1-1.0)
[2022-03-07 05:10] LABS: CREATININE SERUM 2.09 MG/DL (0.60-1.30)
[2022-03-07] MEDS: KCL 20 MEQ TAB (K-DUR) PO SCH (06:12)
[2022-03-07] MEDS: POTASSIUM CL 10MEQ/50ML IVPB 50 ML IV SCH (06:12)
[2022-03-07] MEDS: MAGNESIUM 1 GM/100 ML IVPB 100 ML IV SCH (06:12)
[2022-03-07 06:22] VITALS: BP 146/75
[2022-03-07] MEDS ORDERED: RT-ALBUTEROL HFA 8.5 GM INHALER IH PRN (06:30)
--- NOTE | 2022-03-07 06:57 | Diagnostic Imaging Report ---
PROCEDURE: CT head and CT cervical spine without contrast. TECHNIQUE: Multiple contiguous axial images were obtained through the brain and cervical spine without the use of intravenous contrast. Sagittal and coronal reformations through the cervical spine were then performed. Auto Exposure Controls were utilized during the CT exam to meet ALARA standards for radiation dose reduction. INDICATION: Fall with laceration to the head. Injury. Pain. COMPARISON: None FINDINGS: CT head: There is small focus of acute subarachnoid hemorrhage interdigitating within the sulci of the posterior left frontal lobe (image 55, series 2). No acute intraparenchymal hemorrhage is seen. There is no evidence of large subdural or epidural hematoma. There is no mass effect or midline shift. Ventricles and cortical sulci are otherwise moderately diffusely prominent consistent with underlying age-related parenchymal volume loss. There are also areas of diminished attenuation within the periventricular and subcortical deep white matter consistent with small vessel ischemic changes. This is presumed chronic, but there is no prior available for comparison. Bony calvarium is intact. 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 Paranasal sinuses and mastoid air cells are otherwise clear. CT CERVICAL SPINE: Evaluation of static alignment shows slight grade 1 anterolisthesis at the C3-C4 and C7-T1 levels. This is likely degenerative in nature. There is no evidence of jumped facets. Vertebral body heights are maintained. There is no evidence of acute fracture. No bony fragments are seen within the spinal canal. There are moderate multilevel degenerative changes. This consists of intervertebral disc height loss with anterior posterior endplate osteophyte formations, as well as multilevel facet arthropathy. Pre and paravertebral soft tissue structures are unremarkable. Note is made of calcified carotid atherosclerosis. Included portions lung apices show background moderate emphysematous changes. IMPRESSION: 1. Small focus of acute subarachnoid hemorrhage posteriorly on the left. 2. No sniffing mass effect or midline shift. 3. Background age-related parenchymal volume loss and small vessel ischemic changes in deep white matter; likely chronic. 4. No acute fracture or dislocation of the cervical spine. 5. I agree with Jose Davidk report. Dictated by: Dictated on workstation # [id number]
--- NOTE | 2022-03-07 09:12 | Tele-ICU Consult ---
History of Present Illness History of Present Illness Date Seen by Provider: Mar 07, 2022 Time Seen by Provider: 09:12 Date of Admission (Tele-ICU Physician , consultation) Available chart/ vitals / labs / Images reviewed H&P is from ER notes Patient's information available about PMH, Shx, Fhx allergy reviewed in EMR. ROS as per chart and RN report Now in ICU, hemodynamically stable Video assessment done using teleICU camera, rest of exam as per RN Discussed with RN. Consultants: Hospital course: 03/07) 87y M s/p fall yesterday evening unknown lying on floor. CTH (+) for SAHw/o herniation of ML shift. ADMIT DX: Fall, SAH A/P SAH- Small focus posteriorly on the left, NO herniation of ML shift. , presumed traumatic ( on ASA , ? plavix - neurochecks q1 h - SBP<130 -if worsenign transfuse PL:T - repeat CTH withing 24 h S/p fall - possible due o atthutmias ? - h//o second degree AV block, Mobitz I -No acute fracture or dislocation of the cervical spine. COVID + 03/05 -no hypoxia, no need for steroids RHYS / CKD - hydration , follow CAD - last ECHO 2020 - EF 60% Anemia - hb 9.7 - follow PAD - s/p stenting on right , total occlusi SFA on left Lines : (Central Line Necessity Reviewed) Ivy: OG: Nutrition: Analgesia: Anxiety/ delirium VTE Prophylaxis: scde Stress Ulcer Prophylaxis: Plans in collaboration with bedside consultants and IM MDs. Discussed with RN to reach out if any questions or concerns A total of 33 minutes of critical care time was devoted to this patient today, required to treat and/or prevent further deterioration of critical care condition ( as above ) . Allergies and Home Medications Allergies Coded Allergies: No Known Drug Allergies (Unverified , 10/07/18) Home Medications Acetaminophen 325 Mg Tablet, 650 MG PO Q4H PRN for PAIN-MILD, (Reported) TAKES 2 (325MG) TABLETS Albuterol Sulfate 0.63 Mg/3 Ml Vial.neb, 1 EA IH BID PRN for WHEEZING, (Reported) Ascorbate Calcium 500 Mg Tablet, 500 MG PO BID, (Reported) Aspirin 81 Mg Tablet.dr, 81 MG PO DAILY, (Reported) Atorvastatin Calcium 20 Mg Tablet, 20 MG PO DAILY, (Reported) Biotin 5 Mg Capsule, 10 MG PO DAILY, (Reported) Cholecalciferol (Vitamin D3) 125 Mcg (5000 Unit) Capsule, 125 MCG PO DAILY, (Reported) Clopidogrel Bisulfate 75 Mg Tablet, 75 MG PO DAILY, (Reported) Dextran 70/Hypromellose 1 Each Droperette, 1 DROP OU DAILY, (Reported) Diphenhydramine HCl 25 Mg Capsule, 25 MG PO HS, (Reported) Famotidine 20 Mg Tablet, 20 MG PO DAILY, (Reported) Ferrous Sulfate 325 Mg Tablet, 325 MG PO DAILY, (Reported) Fluticasone Propionate 50 Mcg/Actuation [place].susp, 1 SPRAY NS PRN PRN for ALLERGIES, (Reported) Furosemide 20 Mg Tablet, 20 MG PO DAILY, (Reported) Guaifenesin 400 Mg Tablet, 400 MG PO Q4HRS PRN for COUGH, (Reported) Hydrochlorothiazide 25 Mg Tablet, 25 MG PO DAILY, (Reported) L.acidoph & Paracasei,B.lactis 1 Each Capsule, 1 CAP PO DAILY, (Reported) Levothyroxine Sodium 50 Mcg Tablet, 50 MCG PO HS, (Reported) Loperamide HCl 2 Mg Capsule, 2 MG PO Q6HRS PRN for DIARRHEA, (Reported) Loratadine 10 Mg Tablet, 10 MG PO DAILY PRN for ALLERGIES, (Reported) Pentoxifylline 400 Mg Tablet.er, 400 MG PO TID, (Reported) Tamsulosin HCl 0.4 Mg Cap, 0.4 MG PO DAILY, (Reported) Vits A and D/White Pet/Lanolin 42.5 Gm Oint...g., TP 3XWEEKLY, (Reported) WASH BILAT LEGT WITH SOAP AND WATER, PAT DRY, APPLY A+D OINT. [Exu Dry] , 1 EACH TOP PRN PRN for WEEPING EDEMA, (Reported) Past Medical/Social/Family Hx Patient Social History Tobacco Use?: No Smoking Status: Former Smoker Use of E-Cig and/or Vaping dev: No Substance use?: No Alcohol Use?: Yes Alcohol type: Wine Alcohol Frequency: Rarely Pt stated abuse/neglect: No Immunizations Up To Date Influenza Vaccine Up-to-Date: Yes; Up-to-Date Tetanus Booster (TDap): Unknown Hepatitis A: No Hepatitis B: No TB Skin Test: None Date of Pneumonia Vaccine: Jun 01, 2018 Current Status Advance Directives: Yes Advance Directive Location: Home Communicates: Verbally Primary Language: Belarusian Preferred Spoken Language: Belarusian Is interpretation needed?: No Sensory deficits: Vision impairment, Hearing impairment Implanted or Applied Medical D: Stents Review of Systems Constitutional: see HPI Focused Exam Height, Weight, BMI Height: 5'10.00" Weight: 137lbs. 2.0oz. 62.735769ex; 18.50 BMI Method:Stated Exam Exam Patient acknowledged, consented, and participated in this virtual visit which was conducted using real time audio/video Vital Signs Date Time Temp Pulse Resp B/P (MAP) Pulse Ox O2 Delivery O2 Flow Rate FiO2 03/07/22 09:00 92 50 143/74 88 Room Air 03/07/22 08:50 36.2 03/07/22 08:00 65 18 117/46 90 Room Air 03/07/22 07:00 70 27 106/51 89 Room Air 03/07/22 06:22 36.1 84 93 21 03/07/22 06:00 93 Room Air 03/07/22 05:42 36.1 84 20 146/75 93 Room Air 03/07/22 05:37 85 03/07/22 05:14 36.8 77 20 125/71 93 Room Air 03/07/22 02:45 36.9 85 20 115/105 (108) 91 Room Air I & O 03/07/22 07:00 Intake Total 0 ml Output Total 0 ml Balance 0 ml Height & Weight Height: 5'10.00" Weight: 137lbs. 2.0oz. 62.732968nw; 18.50 BMI Method:Stated General Appearance: No Apparent Distress Capillary Refill: Less Than 3 Seconds Peripheral Pulses: 0 Carotid (R); 2+ Carotid (R); 0 Carotid (L); 2+ Carotid (L); 0 Femoral (R); 2+ Femoral (R); 0 Femoral (L); 2+ Femoral (L); 0 Dorsalis Pedis (R); 2+ Dorsalis Pedis (R), 2+ Left Dors-Pedis (L), 2+ Radial Pulses (R), 2+ Radial Pulses (L) Gastrointestinal: normal bowel sounds, non tender, soft Results Lab Laboratory Tests 03/07/22 04:30 Assessment/Plan Assessment/Plan 1 ROSSANA MAIER MD Mar 07, 2022 09:12
[2022-03-07] MEDS ORDERED: ALBU2.5V4 NEB (10:03)
[2022-03-07] MEDS ORDERED: BIOT5CAP9 PO (10:03)
[2022-03-07] MEDS ORDERED: ACET325T38 PO (10:03)
[2022-03-07] MEDS ORDERED: FERR325T18 PO (10:03)
[2022-03-07] MEDS ORDERED: ISOS30TA82 PO (10:03)
[2022-03-07] MEDS ORDERED: VITS42.53 TP (10:09)
[2022-03-07 12:41] LABS: POTASSIUM 3.5 MMOL/L (3.6-5.0)
[2022-03-07 12:42] LABS: CALCIUM 9.4 MG/DL (8.5-10.1)
[2022-03-07 12:47] LABS: CREATININE SERUM 1.96 MG/DL (0.60-1.30)
[2022-03-07 12:49] LABS: MAGNESIUM 1.7 MG/DL (1.6-2.4)
--- NOTE | 2022-03-07 13:13 | History & Physical ---
HPI History of Present Illness: 87 yo M that presented to ER after having fall in NH and he was found down. Patient denies losing consciousness. States that he felt dizzy prior to falling and hitting his head. He has a small laceration on the back of his head. Denies any CHURCH, N/V this AM. Sitting up eating breakfast. Denies any pain. Source: patient Exam Limitations: no limitations Date seen by provider: Mar 07, 2022 Time Seen by Provider: 09:15 Attending Physician Frankie Rascon MD PCP Admitting Physician: Ashlie Hanks MD Attending Physician: Ashlie Hanks MD Consult Date of Admission Mar 07, 2022 at 04:41 Home Medications Home Medications Reviewed patient Home Medication Reconciliation performed by pharmacy medication reconciliations tax map technician and/or nursing. Patients Allergies have been reviewed. Allergies Coded Allergies: No Known Drug Allergies (Unverified , 10/07/18) IDW-[id number]-Ojewzw Hx Patient Social History Living Status: Living in [place] Smoking Status: Former Smoker 2nd Hand Smoke Exposure: No Recent Hopitalizations: Yes (overnight may 12 leg swelling) Alcohol Use?: Yes Have you traveled recently?: No Immunizations Up To Date Influenza Vaccine Up-to-Date: Yes; Up-to-Date Past Medical History HTN HLD Hypothyroidism CAD PVD Family Medical History Significant Family History: No Pertinent Family Hx Review of Systems ([facility]C) Constitutional: malaise EENTM: no symptoms reported Respiratory: no symptoms reported Cardiovascular: no symptoms reported Gastrointestinal: no symptoms reported Genitourinary: no symptoms reported Musculoskeletal: muscle pain Reviewed Test Results Reviewed Test Results Lab Laboratory Tests Test 03/07/22 02:00 03/07/22 04:30 03/07/22 12:15 Range/Units Glucometer 133 H 70-110 MG/DL White Blood Count 6.5 4.3-11.0 10^3/uL Red Blood Count 3.28 L 4.30-5.52 10^6/uL Hemoglobin 9.7 L 13.3-17.7 g/dL Hematocrit 30 L 40-54 % Mean Corpuscular Volume 91 80-99 fL Mean Corpuscular Hemoglobin 30 25-34 pg Mean Corpuscular Hemoglobin Concent 33 32-36 g/dL Red Cell Distribution Width 13.4 10.0-14.5 % Platelet Count 218 130-400 10^3/uL Mean Platelet Volume 11.5 9.0-12.2 fL Immature Granulocyte % (Auto) 1 % Neutrophils (%) (Auto) 80 H 42-75 % Lymphocytes (%) (Auto) 5 L 12-44 % Monocytes (%) (Auto) 14 H 0-12 % Eosinophils (%) (Auto) 0 0-10 % Basophils (%) (Auto) 0 0-10 % Neutrophils # (Auto) 5.2 1.8-7.8 10^3/uL Lymphocytes # (Auto) 0.3 L 1.0-4.0 10^3/uL Monocytes # (Auto) 0.9 0.0-1.0 10^3/uL Eosinophils # (Auto) 0.0 0.0-0.3 10^3/uL Basophils # (Auto) 0.0 0.0-0.1 10^3/uL Immature Granulocyte # (Auto) 0.0 0.0-0.1 10^3/uL Prothrombin Time 13.3 12.2-14.7 SEC INR Comment 1.0 0.8-1.4 Activated Partial Thromboplast Time 31 24-35 SEC Sodium Level 140 139 135-145 MMOL/L Potassium Level 3.6 3.5 L 3.6-5.0 MMOL/L Chloride Level 101 100 98-107 MMOL/L Carbon Dioxide Level 26 25 21-32 MMOL/L Anion Gap 13 14 5-14 MMOL/L Blood Urea Nitrogen 44 H 47 H 7-18 MG/DL Creatinine 2.09 H 1.96 H 0.60-1.30 MG/DL Estimat Glomerular Filtration Rate 30 32 BUN/Creatinine Ratio 21 24 Glucose Level 119 H 109 H 70-105 MG/DL Calcium Level 9.7 9.4 8.5-10.1 MG/DL Corrected Calcium 10.1 8.5-10.1 MG/DL Total Bilirubin 0.3 0.1-1.0 MG/DL Aspartate Amino Transf (AST/SGOT) 18 5-34 U/L Alanine Aminotransferase (ALT/SGPT) 10 0-55 U/L Alkaline Phosphatase 54 40-136 U/L Troponin I 0.041 H <0.028 NG/ML Total Protein 6.5 6.4-8.2 GM/DL Albumin 3.5 3.2-4.5 GM/DL Magnesium Level 1.7 1.6-2.4 MG/DL Total Creatine Kinase 1752 H 30-200 U/L Physical Exam-(CHC) Physical Exam Vital Signs VS - Last 72 Hours, by Label 03/07/22 03/07/22 03/07/22 03/07/22 02:45 05:14 05:37 05:42 Temp 36.9 36.8 36.1 Pulse 85 77 85 84 Resp 20 20 20 B/P (MAP) 115/105 (108) 125/71 146/75 Pulse Ox 91 93 93 O2 Delivery Room Air Room Air Room Air 03/07/22 03/07/22 03/07/22 03/07/22 06:00 06:22 07:00 08:00 Temp 36.1 Pulse 84 70 65 Resp 27 18 B/P (MAP) 106/51 117/46 Pulse Ox 93 93 89 90 O2 Delivery Room Air Room Air Room Air FiO2 21 03/07/22 03/07/22 03/07/22 03/07/22 08:45 08:50 09:00 10:00 Temp 36.2 Pulse 92 84 Resp 50 32 B/P (MAP) 143/74 133/83 Pulse Ox 96 88 O2 Delivery Room Air Room Air Room Air 03/07/22 03/07/22 03/07/22 03/07/22 11:00 11:59 12:00 12:15 Temp 36.6 Pulse 80 82 Resp 19 16 B/P (MAP) 126/63 144/68 Pulse Ox 92 97 O2 Delivery Room Air Room Air Room Air 03/07/22 03/07/22 03/07/22 03/07/22 12:59 13:00 14:00 15:00 Pulse 87 85 71 75 Resp 18 18 30 B/P (MAP) 107/58 134/66 139/98 Pulse Ox 92 91 91 O2 Delivery Room Air Room Air Room Air 03/07/22 03/07/22 03/07/22 03/07/22 16:00 16:20 16:21 17:00 Pulse 82 88 Resp 27 20 B/P (MAP) 128/64 160/83 Pulse Ox 87 96 91 O2 Delivery Room Air Room Air Room Air Room Air 03/07/22 03/07/22 18:00 18:38 Pulse 92 Resp 38 B/P (MAP) 77/52 Pulse Ox 96 O2 Delivery Room Air Room Air Capillary Refill : Less Than 3 Seconds General Appearance: WD/WN, no apparent distress, other (Hard of hearing) HEENT: PERRL/EOMI, other (Laceration on the back of his head) Neck: non-tender, full range of motion, supple Respiratory: chest non-tender, lungs clear, normal breath sounds, no respiratory distress, no accessory muscle use Cardiovascular: normal peripheral pulses, regular rate, rhythm, no edema, no murmur Gastrointestinal: normal bowel sounds, non tender, soft Back: no CVA tenderness, no vertebral tenderness Extremities: normal range of motion, non-tender, normal inspection, no pedal edema, no calf tenderness, normal capillary refill Neurologic/Psychiatric: media production support manager II-XII nml as tested, no motor/sensory deficits, alert, normal mood/affect, oriented x 3 Skin: normal color, warm/dry Lymphatic: no adenopathy Assessment/Plan Assessment/Plan Admission Status: Inpatient Order (span 2 midnights) Reason for Inpatient Admission: High risk for decompensation and needs hrly neuro checks (1) Subarachnoid hemorrhage Status: Acute Assessment & Plan: - Admit to ICU, 1 hr neuro checks, keep blood pressure controlled <140 (2) Fall Status: Acute Qualifiers: Qualified Codes: W19.XXXA - Unspecified fall, initial encounter (3) HTN (hypertension) Status: Chronic Assessment & Plan: - Keep stricted blood pressure parameters Qualifiers: Qualified Codes: I10 - Essential (primary) hypertension (4) HLD (hyperlipidemia) Status: Chronic (5) Acute kidney failure Status: Acute Assessment & Plan: - IVFs, continue to monitor (6) Rhabdomyolysis Status: Acute Assessment & Plan: - IVFs, continue to monitor Cr Qualifiers: Qualified Codes: T79.6XXA - Traumatic ischemia of muscle, initial encounter (7) CAD (coronary artery disease) Status: Chronic Qualifiers: Qualified Codes: I25.10 - Atherosclerotic heart disease of [place] coronary artery without angina pectoris (8) Normocytic anemia (9) Hypothyroidism Status: Chronic Qualifiers: Qualified Codes: E03.9 - Hypothyroidism, unspecified (10) PAD (peripheral artery disease) Status: Chronic ASHLIE HANKS MD Mar 07, 2022 13:13
[2022-03-07] MEDS ORDERED: MAGNESIUM 1 GM/100 ML IVPB 100 ML IV ONE (13:15)
[2022-03-07] MEDS: NS IV 1000 ML 1,000 ML IV SCH (13:26)
--- NOTE | 2022-03-07 14:57 | Physical Therapy Evaluation ---
PT Evaluation-General Medical Diagnosis Admission Date Mar 07, 2022 at 04:41 Medical Diagnosis: Subarachnoid bleed Onset Date: Mar 07, 2022 Therapy Diagnosis Therapy Diagnosis: Gait deficit, strength deficit Height/Weight Height (Feet): 5 Height (Inches): 10.00 Weight (Pounds): 137 Weight (Ounces): 2.0 Precautions Precautions/Isolations: Airborne Isolation, Fall Prevention Weight Bear Status Right Lower Extremity: Right Full Weight Bearing Left Lower Extremity: Left Full Weight Bearing Referral Physician: Dr. Hanks Reason for Referral: Evaluation/Treatment Medical History Pertinent Medical History: CAD, HTN Reviewed History: Yes Social History Home: Assisted Living Current Living Status: Alone Prior Prior Level of Function SCALE: Activities may be completed with or without assistive devices. 3-Unmdnvxsep-mmhdyzu completes the activity by him/herself with no assistance f rom a helper. 5-Set-up or Clean-up Assistance-helper sets up or cleans up; patient completes activity. [place] assists only prior to or following the activity. 4-Supervision or Touching Assistance-helper provides verbal cues and/or touching/steadying and/or contact guard assistance as patient completes activity. Assistance may be provided throughout the activity or intermittently. 3-Partial/Moderate Assistance-helper does LESS THAN HALF the effort. [place] lifts, holds or supports trunk or limbs, but provides less than half the effort. 2-Substantial/Maximal Assistance-helper does MORE THAN HALF the effort. [place] lifts or holds trunk or limbs and provides more than half the effort. 3-Qaqynnkfj-klhvsd does ALL the effort. Patient does none of the effort to complete the activity. Or, the assistance of 2 or more helpers is required for the patient to complete the activity. If activity was not attempted, code reason: 7-Patient Refused. 9-Not Applicable-not attempted and the patient did not perform the activity before the current illness, exacerbation or injury. 10-Not Attempted due to Environmental Limitations-(lack of equipment, weather restraints, etc.). 88-Not Attempted due to Medical Conditions or Safety Concerns. Bed Mobility: 6 Transfers (B,C,W/C): 6 Gait: 6 Stairs: 6 Indoor Mobility (Ambulation): Independent Stairs: Independent Prior Devices Use: Other-see list below Prior Device Use: Cane PT Evaluation-Current Subjective Patient lying supine in bed upon PT arrival, agreeable to treatment. Patient rates pain at 0/10 currently. Objective Patient Orientation: Person, Place, Time, Situation ROM/Strength ROM Lower Extremities WFLs all planes bilaterally Strength Lower Extremities 4-/5 bilaterally all planes. Sensory Vision: Functional Hearing: Impaired Sensation Right Lower Extremit: Impaired Sensation Left Lower Extremity: Intact Sensation Lower Extremities Reports no sensation in his right Great Toe Transfers Roll Left to Right (QC): 3 Sit to Lying (QC): 3 Lying to Sitting/Side of Bed(Q: 3 Sit to Stand (QC): 3 Chair/Qnh-jq-Uigzm Xfer(QC): 3 Gait Does the Patient Walk?: Yes Mode of Locomotion: Walk Anticipated Mode of Locomotion: Walk Walk 10 feet (QC): 4 Walk 50 ft with 2 Turns(QC): 4 Distance: 50 Gait Assistive Device: FWW Balance Sitting Static: Fair Sitting Dynamic: Fair Standing Static: Fair Standing Dynamic: Fair Assessment/Needs Patient tolerate treatment well. Requires minimal assistance for all observed bed mobility and transfers. During MMT patient demonstrates mild retropulsive posture with posterolateral leaning to the right. Patient ambulates 50 feet in the room with FWW, with CGA and verbal cues fro safety, progression, balance. Patient in chair post treatment with all needs met, nursing notified, call light in each and chair alarm activated. Rehab Potential: Fair PT Spreader Goals Spreader Goals PT Spreader Goals Time Frame: Mar 16, 2022 Roll Left & Right (QC): 6 Sit to Lying (QC): 6 Lying-Sitting on Side/Bed(QC): 6 Sit to Stand (QC): 6 Chair/Qot-sk-Kaahz Xfer(QC): 6 Toilet Transfer (QC): 6 Does the Patient Walk: Yes Walk 10 feet (QC): 6 Walk 50ft with 2 Turns (QC): 6 Walk 150 ft (QC): 6 PT Plan Problem List Problem List: Activity Tolerance, Functional Strength, Safety, Balance, Gait, Transfer, Bed Mobility, ROM Treatment/Plan Treatment Plan: Continue Plan of Care Treatment Plan: Bed Mobility, Education, Functional Activity Taisha, Functional Strength, Group Therapy, Gait, Safety, Therapeutic Exercise, Transfers Treatment Duration: Apr 13, 2022 Frequency: 6 times per week Estimated Hrs Per Day: .25 hour per day Patient and/or Family Agrees t: Yes Safety Risks/Education Patient Education: Gait Training, Transfer Techniques Teaching Recipient: Patient Teaching Methods: Demonstration, Discussion Response to Teaching: Verbalize Understanding, Return Demonstration Discharge Recommendations Therapy Discharge Recommendati: Assisted Living Time/GCodes Time In: 1418 Time Out: 1448 Total Billed Treatment Time: 30 Total Billed Treatment Visit, Justyna Alarcon JOHN A PT Mar 07, 2022 14:57
[2022-03-07 18:22] LABS: CALCIUM 9.1 MG/DL (8.5-10.1); POTASSIUM 4.6 MMOL/L (3.6-5.0)
[2022-03-07 18:31] LABS: CREATININE SERUM 1.92 MG/DL (0.60-1.30)
[2022-03-07] MEDS: SODIUM BICARBONATE 8.4% VIAL 75 MEQ in 1/2 NS IV SOLUTION 1,000 ML IV SCH (19:40)
[2022-03-07] MEDS: FAMOTIDINE 20 MG (PEPCID) TABLET PO SCH (19:46)
[2022-03-07] MEDS: TAMSULOSIN 0.4 MG (FLOMAX) CAP PO SCH (19:47)
--- NOTE | 2022-03-07 20:39 | CONSULTATION REPORT ---
DATE OF SERVICE: 03/07/2022 HISTORY OF PRESENT ILLNESS: The patient is an 87-year-old male, who presented to [facility] after having a fall. This gentleman reports that he has had intermittent episodes of chills and stated that this had started two days previous. He did a home test and was found to be COVID-19 positive. He reports that he was reaching up towards a cupboard and then did feel the chills causing him to lose his balance and he did fall. There were small lacerations noted of his head. He was awake and alert with a [place] coma scale of 15 and no focal neurologic deficits. He was transferred to [facility] and admitted for observation. Upon seeing the patient, the patient again is awake and alert and with no focal deficits and a [place] coma scale of 15. A CT scan did show a small subarachnoid hemorrhage posteriorly on the left. The CT scan of the spine was normal. PAST MEDICAL HISTORY: Hypertension, hypercholesterolemia, hypothyroid, and peripheral vascular disease. PAST SURGICAL HISTORY: None noted. ALLERGIES: No known drug allergies. MEDICATIONS: Albuterol 2.5 mg b.i.d. p.r.n., aspirin 81 mg daily, atorvastatin 20 mg daily, biotin 5 mg daily, Plavix 75 mg daily, famotidine 20 mg daily, iron 325 mg daily, fluticasone 50 mcg spray daily p.r.n., furosemide 20 mg daily, guaifenesin 400 mg daily, hydrochlorothiazide 25 mg daily, isosorbide mononitrate 30 mg daily, loratadine 10 mg daily, pentoxifylline 400 mg daily, and tamsulosin 0.4 mg daily. SOCIAL HISTORY: Negative smoke and social alcohol. FAMILY HISTORY: Noncontributory. REVIEW OF SYSTEMS: A thin-appearing male, who is awake and alert. He is not experiencing any shortness of breath or difficulty breathing. No chest pain, palpitations, diaphoresis. No nausea, vomiting, no diarrhea or constipation. No headache or visual changes. He has been having chills, no recent inadvertent weight loss. All other review of systems negative. PHYSICAL EXAMINATION: VITAL SIGNS: Temperature 36.1, blood pressure 139/98, pulse 75, respirations 18, and pulse ox 91% on room air. CHEST: Clear. Good breath sounds bilaterally. HEART: Regular and no murmurs. EXTREMITIES: No lower extremity edema and negative Homans sign. HEENT: No scleral icterus. NECK: No cervical lymphadenopathy. ABDOMEN: Soft, nontender, and nondistended. SKIN: Warm and dry. NEUROLOGIC: Moves all four extremities purposefully upon command with a [place] coma scale of 15 and no focal deficits. LABORATORY DATA: WBC 6.5, hemoglobin 9.7, hematocrit 30, platelets 218, BUN 47, and creatinine 1.96. ASSESSMENT AND PLAN: An 87-year-old male with slightly elevated fall, who is COVID-19 positive and due to the fall, was evaluated in the emergency room, where a small posterior and left subarachnoid hemorrhage was identified. From a neurologic perspective, the patient has been asymptomatic upon admission as well as within the 12 hours later. We will recommend continued medical management with monitoring. Continue treatment for COVID and supportive care. He may need a followup CT scan of the head to see if any changes occur within the previous subarachnoid hemorrhage, if not, then he can likely resume his anticoagulation in approximately 14 days from the fall. Job ID: [id number] DocumentID: [id number] Dictated Date: 03/07/2022 16:01:37 Ham Rolling Machine Operator Date: 03/07/2022 18:19:45 Dictated By: CHANDRIKA KING MD
[2022-03-07] MEDS: hydrALAZINE (APESOLINE) 20 MG/ML VIAL IV PRN (22:58)
[2022-03-08] MEDS: NS IV 1000 ML 1,000 ML IV SCH ×2 (00:50→06:21)
[2022-03-08] MEDS: hydrALAZINE (APESOLINE) 20 MG/ML VIAL IV PRN (05:00)
[2022-03-08 05:20] LABS: BASOPHILS % (AUTO) 0 % (0-10); EOSINOPHILS % (AUTO) 0 % (0-10); HEMATOCRIT 26 % (40-54); HEMOGLOBIN 8.3 g/dL (13.3-17.7); LYMPHOCYTES # (AUTO) 0.7 10^3/uL (1.0-4.0); LYMPHOCYTES % (AUTO) 14 % (12-44); MEAN CORPUSCULAR HEMOGLOBIN 29 pg (25-34); MEAN CORPUSCULAR HGB CONC 32 g/dL (32-36); MEAN CORPUSCULAR VOLUME 92 fL (80-99); MONOCYTES # (AUTO) 1.2 10^3/uL (0.0-1.0); MONOCYTES % (AUTO) 24 % (0-12); NEUTROPHILS # (AUTO) 3.1 10^3/uL (1.8-7.8); NEUTROPHILS % (AUTO) 61 % (42-75); PLATELET COUNT 170 10^3/uL (130-400); WHITE BLOOD COUNT 5.1 10^3/uL (4.3-11.0)
[2022-03-08 05:45] LABS: ALBUMIN 2.9 GM/DL (3.2-4.5); BILIRUBIN,TOTAL 0.2 MG/DL (0.1-1.0); CALCIUM 8.2 MG/DL (8.5-10.1); CREATININE SERUM 1.53 MG/DL (0.60-1.30); PHOSPHORUS 3.4 MG/DL (2.3-4.7); POTASSIUM 3.4 MMOL/L (3.6-5.0); TOTAL PROTEIN 5.3 GM/DL (6.4-8.2)
[2022-03-08] MEDS: MAGNESIUM 1 GM/100 ML IVPB 100 ML IV SCH (05:51)
--- NOTE | 2022-03-08 05:53 | Diagnostic Imaging Report ---
PROCEDURE: CT head without contrast. TECHNIQUE: Multiple contiguous axial images were obtained through the brain without the use of intravenous contrast. Auto Exposure Controls were utilized during the CT exam to meet ALARA standards for radiation dose reduction. INDICATION: 87-year-old male with subarachnoid hemorrhage followup. COMPARISONS: 03/07/2022. FINDINGS: Midline structures are not displaced. There are senescent changes to the brain with involutional changes and generalized atrophy with temporoparietal predominance of the generalized atrophy. Again demonstrated is a high left posterior frontal parietal subarachnoid blood extending towards the vertex. This is unchanged. There is no new hemorrhage. This is most likely nonaneurysmal in origin. Background chronic areas of microvascular ischemic change is seen. Basilar cisterns appear normal. Sinuses, orbits, and mastoid air cells are grossly unremarkable. Bone windows show no calvarial changes. IMPRESSION: Subarachnoid blood is again seen along the left frontoparietal surface towards the vertex with no new hemorrhage. The brain is otherwise senescent with involutional changes and generalized atrophy with a slight temporoparietal predominance to the generalized atrophy. Background chronic areas of microvascular ischemic change seen. Additional nonemergent findings as described above. Dictated by: Dictated on workstation # [id number]
[2022-03-08 05:59] LABS: HYPOCHROMASIA SLIGHT; LYMPHOCYTES % (MANUAL) 12 %; MONOCYTES % (MANUAL) 24 %; NEUTROPHILS % (MANUAL) 64 %
[2022-03-08] MEDS: POTASSIUM CL 10MEQ/50ML IVPB 50 ML IV SCH (06:13)
[2022-03-08] MEDS ORDERED: KCL 20 MEQ TAB (K-DUR) PO ONE (06:15)
[2022-03-08] MEDS: KCL 20 MEQ TAB (K-DUR) PO SCH (06:21)
[2022-03-08] MEDS: LEVOTHYROXINE 50 MCG (LEVOTHROID) TAB PO SCH (06:30)
--- NOTE | 2022-03-08 10:00 | Tele-ICU Progress Note ---
Subjective Date Seen by a Provider: Mar 08, 2022 Time Seen by a Provider: 10:00 Subjective/Events-last exam (Tele-ICU Physician , Progress Note ) Available chart/ vitals / labs / Images reviewed Video assessment done using teleICU camera, rest of exam as per RN Discussed with RN , EXAM PER RN Events overnight : Afebrile FiO2 - ra I/O = + Drips: Pressors: , hemodynamically stable Consultants: [facility] Hospital course: 03/07) 87y M s/p fall yesterday evening unknown lying on floor. CTH (+) for SA Hw/o herniation of ML shift. ADMIT DX: Fall, SAH A/P SAH- Small focus posteriorly on the left, NO herniation of ML shift. , presumed traumatic ( on ASA , ? plavix -f/up CT 24 h - stable - neurochecks q 2 h--> q 4 latter today id stable - SBP<130 - stopp IVF, but monitor for vasospam - boluses if change in neuroexam S/p fall - possible due o arrythmias vs orthostatic hypotension ? - h//o second degree AV block, Mobitz I- as per PCP -No acute fracture or dislocation of the cervical spine. COVID + 03/05 -no hypoxia, no need for steroids - as per RN - lung exam consistent with VO - will stop IVF RHYS / CKD - improved with hydration , seems baseline - mild alcalinization urine with eleb CPKs - BM meds choice as per PCP CAD - last ECHO 2020 - EF 60% Anemia - hb 9.7 ->8,3 - most likely delutional , follow - u/up as per PCP PAD - s/p stenting on right , total occlusi SFA on left Lines : (Central Line Necessity Reviewed) Ivy: OG: Nutrition: Analgesia: Anxiety/ delirium VTE Prophylaxis: scd Stress Ulcer Prophylaxis: na Plans in collaboration with bedside consultants and IM MDs. Discussed with RN to reach out if any questions or concerns A total of 33 minutes of critical care time was devoted to this patient today, required to treat and/or prevent further deterioration of critical care condition ( as above ) . Sepsis Event Evaluation Height, Weight, BMI Height: 5'10.00" Weight: 137lbs. 2.0oz. 62.349074ml; 19.95 BMI Method:Stated Exam Exam Patient acknowledged, consented, and participated in this virtual visit which was conducted using real time audio/video Vital Signs Date Time Temp Pulse Resp B/P (MAP) Pulse Ox O2 Delivery O2 Flow Rate FiO2 03/08/22 09:00 86 24 108/53 93 Room Air 03/08/22 08:12 93 Room Air 03/08/22 08:00 65 12 125/60 94 Room Air 03/08/22 07:50 36.1 03/08/22 07:00 70 20 125/60 94 Room Air 03/08/22 07:00 68 03/08/22 06:00 60 16 92 Room Air 03/08/22 06:00 124/61 03/08/22 05:00 73 16 139/68 92 Room Air 03/08/22 04:00 70 19 118/68 90 Room Air 03/08/22 04:00 94 Room Air 03/08/22 03:45 36.3 03/08/22 03:00 60 17 102/58 92 Room Air 03/08/22 02:00 64 16 134/68 94 Room Air 03/08/22 01:00 64 18 97/47 90 Room Air 03/08/22 01:00 64 03/08/22 00:00 93 Room Air 03/08/22 00:00 66 18 152/70 91 Room Air 03/07/22 23:35 36.1 03/07/22 23:00 70 22 117/62 93 Room Air 03/07/22 22:00 69 16 108/59 92 Room Air 03/07/22 21:00 72 17 141/68 92 Room Air 03/07/22 20:04 93 Room Air 03/07/22 20:00 66 17 116/62 91 Room Air 03/07/22 19:37 36.2 03/07/22 19:00 77 03/07/22 19:00 77 22 143/60 92 Room Air 03/07/22 18:38 96 Room Air 03/07/22 18:00 92 38 77/52 Room Air 03/07/22 17:00 88 20 160/83 91 Room Air 03/07/22 16:21 96 Room Air 03/07/22 16:20 Room Air 03/07/22 16:00 82 27 128/64 87 Room Air 03/07/22 15:00 75 30 139/98 91 Room Air 03/07/22 14:00 71 18 134/66 91 Room Air 03/07/22 13:00 85 18 107/58 92 Room Air 03/07/22 12:59 87 03/07/22 12:15 97 Room Air 03/07/22 12:00 82 16 144/68 92 Room Air 03/07/22 11:59 36.6 03/07/22 11:00 80 19 126/63 Room Air I & O 03/08/22 07:00 Intake Total 720 ml Output Total 875 ml Balance -155 ml Height & Weight Height: 5'10.00" Weight: 137lbs. 2.0oz. 62.380695dz; 19.95 BMI Method:Stated General Appearance: No Apparent Distress Capillary Refill: Less Than 3 Seconds Peripheral Pulses: 0 Carotid (R); 2+ Carotid (R); 0 Carotid (L); 2+ Carotid (L); 0 Femoral (R); 2+ Femoral (R); 0 Femoral (L); 2+ Femoral (L); 0 Dorsalis Pedis (R); 2+ Dorsalis Pedis (R), 2+ Left Dors-Pedis (L), 2+ Radial Pulses (R), 2+ Radial Pulses (L) Gastrointestinal: normal bowel sounds, non tender, soft Results Lab Laboratory Tests 03/07/22 04:30 03/07/22 12:15 03/07/22 17:58 03/08/22 04:40 Assessment/Plan Assessment/Plan 1 ROSSANA MAIER MD Mar 08, 2022 10:00
--- NOTE | 2022-03-08 11:54 | Physical Therapy Daily Note ---
PT Daily Note-Current Subjective Patient lying supine in bed upon PT arrival, agreeable to treatment. Reports no pain at this time. Mental Status Patient Orientation: Person, Place, Time, Situation Transfers SCALE: Activities may be completed with or without assistive devices. 5-Qxpcqdepam-lvfrmpz completes the activity by him/herself with no assistance from a helper. 5-Set-up or Clean-up Assistance-helper sets up or cleans up; patient completes activity. [place] assists only prior to or following the activity. 4-Supervision or Touching Assistance-helper provides verbal cues and/or touching/steadying and/or contact guard assistance as patient completes activity. Assistance may be provided throughout the activity or intermittently. 3-Partial/Moderate Assistance-helper does LESS THAN HALF the effort. [place] lifts, holds or supports trunk or limbs, but provides less than half the effort. 2-Substantial/Maximal Assistance-helper does MORE THAN HALF the effort. [place] lifts or holds trunk or limbs and provides more than half the effort. 2-Vrtzfsupt-xowopy does ALL the effort. Patient does none of the effort to complete the activity. Or, the assistance of 2 or more helpers is required for the patient to complete the activity. If activity was not attempted, code reason: 7-Patient Refused. 9-Not Applicable-not attempted and the patient did not perform the activity before the current illness, exacerbation or injury. 10-Not Attempted due to Environmental Limitations-(lack of equipment, weather restraints, etc.). 88-Not Attempted due to Medical Conditions or Safety Concerns. Roll Left & Right (QC): 5 Sit to Lying (QC): 3 Lying to Sitting/Side of Bed(Q: 4 Sit to Stand (QC): 5 Chair/Xgb-rf-Jolqe Xfer(QC): 5 Weight Bearing Right Lower Extremity: Right Full Weight Bearing Left Lower Extremity: Left Full Weight Bearing Gait Training Does the Patient Walk?: Yes Distance: 120 Walk 10 feet (QC): 5 Walk 50 ft with 2 Turns(QC): 5 Gait Assistive Device: FWW Assessment Current Status: Good Progress Patient tolerated treatment well. Demonstrates good overall improvement with all bed mobility and transfers except for supine to sit. He requires min A for supine to sit. Patient ambulates 120 feet with FWW, with Mod [place], ve rbal cues for conservation of energy. Patient ambulate with a much improved gait pattern except for during turning. During turning he tends to shuffle his feet but demonstrates no loss of balance. Patient in chair post treatment with all needs met, nursing notified, call light in reach and chair alarm activated. PT Donations Attendant Goals Donations Attendant Goals PT Halfway Goals Time Frame: Mar 16, 2022 Roll Left & Right (QC): 6 Sit to Lying (QC): 6 Lying-Sitting on Side/Bed(QC): 6 Sit to Stand (QC): 6 Chair/Cgw-fc-Nmdpa Xfer(QC): 6 Toilet Transfer (QC): 6 Does the Patient Walk: Yes Walk 10 feet (QC): 6 Walk 50ft with 2 Turns (QC): 6 Walk 150 ft (QC): 6 PT Plan Treatment/Plan Treatment Plan: Continue Plan of Care Treatment Plan: Bed Mobility, Education, Functional Activity Taisha, Functional Strength, Group Therapy, Gait, Safety, Therapeutic Exercise, Transfers Treatment Duration: Apr 13, 2022 Frequency: 6 times per week Estimated Hrs Per Day: .25 hour per day Patient and/or Family Agrees t: Yes Safety Risks/Education Patient Education: Gait Training Teaching Recipient: Patient Teaching Methods: Demonstration, Discussion Response to Teaching: Verbalize Understanding, Return Demonstration Discharge Recommendations Target Placement Return to Assisted Living Time/GCodes Time In: 1126 Time Out: 1150 Total Billed Treatment Time: 24 Total Billed Treatment Visit, Gait (2) NETTIE IRELAND PT Mar 08, 2022 11:54
--- NOTE | 2022-03-08 12:28 | Progress Note - Hospitalist ---
DORINASURYEDGARD A MED STUDENT 03/08/22 1228: Subjective HPI/CC On Admission Date Seen by Provider: Mar 08, 2022 Time Seen by Provider: 08:25 Subarachnoid hemorrhage post fall Subjective/Events-last exam Pt lying in bed comfortably this morning with no complaints. He is eating and drinking without problems. Denies [place]UR[place] or blurry vision. Review of Systems General: No Chills, No Fatigue HEENT: No Head Aches, No Visual Changes Pulmonary: No Dyspnea, No Cough Cardiovascular: No: Chest Pain, Palpitations Gastrointestinal: No: Nausea, Vomiting Musculoskeletal: No: neck pain, shoulder pain Neurological: No: Weakness, Numbness Objective Exam Vital Signs Vital Signs Date Time Temp Pulse Resp B/P (MAP) Pulse Ox O2 Delivery O2 Flow Rate FiO2 03/08/22 12:00 82 16 96 Room Air 03/08/22 07:50 36.1 03/07/22 06:22 21 Capillary Refill : Less Than 3 Seconds General Appearance: No Apparent Distress, WD/WN HEENT: PERRL/EOMI, TMs Normal Neck: Full Range of Motion, Normal Inspection Respiratory: Chest Non Tender, No Accessory Muscle Use, No Respiratory Distress, Decreased Breath Sounds (bilaterally) Cardiovascular: Regular Rate, Rhythm, No Murmur Gastrointestinal: Non Tender, Soft Extremity: Normal Inspection, No Pedal Edema Neurologic/Psychiatric: Alert, Normal Mood/Affect Skin: Normal Color, Warm/Dry Lymphatic: No Adenopathy Results/Procedures Lab Laboratory Tests 03/07/22 17:58 03/08/22 04:40 Patient resulted labs reviewed. Assessment/Plan Assessment and Plan Assess & Plan/Chief Complaint Subarachnoid hemorrhage following fall COVID 19 infection Rhabdomyolysis HTN Normocytic anemia RHYS HLD Hypothyroidism PAD Subarachnoid hemorrhage following fall -CT today showed no new hemorrhage -Strict BP control COVID 19 infection -Conservative management Rhabdomyolysis -Creatine kinase trending down HTN Normocytic anemia -Likely dilutional RHYS -Cr trending down HLD Hypothyroidism PAD Diet: Regular DVT prophylaxis: SCDs and ambulation Disposition: Will move pt to floor today and continue to monitor. ARLETTE BURROUGHS DO 03/08/222047: Subjective Subjective/Events-last exam Pt is doing a lot better Repeat CT scan showed no hemorrhagic extension Creatinine improved at 1.53 Plavix and Aspirin will be started on 03/21/22 Covid is positive Hemoglobin is 8.3 CPK improved Review of Systems General: Fatigue, Malaise Objective Exam General Appearance: No Apparent Distress, WD/WN, Chronically ill Respiratory: No Accessory Muscle Use, No Respiratory Distress, Decreased Breath Sounds (bilaterally) Cardiovascular: Regular Rate, Rhythm Neurologic/Psychiatric: Alert, Oriented x3 Supervisory-Addendum Brief Verification & Attestation Participated in pt care: history, MDM, physical Personally performed: exam, history, MDM, supervision of care Care discussed with: Medical Student Procedures: n/a Results interpretation: Verified all documentation Verification and Attestation of Medical Student E/M Service A medical student performed and documented this service in my presence. I reviewed and verified all information documented by the medical student and made modifications to such information, when appropriate. I personally performed the physical exam and medical decision making. Arlette Burroughs, Mar 08, 2022,20:46 EDGARD ELMORE MED STUDENT Mar 08, 2022 12:28 ARLETTE BURROUGHS DO Mar 08, 2022 20:48
--- NOTE | 2022-03-08 12:59 | Occupational Therapy Eval ---
OT Evaluation-General/PLF Medical Diagnosis Admission Date Mar 07, 2022 at 04:41 Medical Diagnosis: Subarachnoid bleed Onset Date: Mar 07, 2022 Therapy Diagnosis Therapy Diagnosis: decreased ADL status Height/Weight Height (Feet): 5 Height (Inches): 10.00 Weight (Pounds): 137 Weight (Ounces): 2.0 Precautions Precautions/Isolations: Airborne Isolation, Fall Prevention Referral Physician: Sabi Referral Reason: Evaluation/Treatment Medical History Pertinent Medical History: CAD, HTN Additional Medical History HTN, HLD, Hypothyroidism, CAD, PVD Current History ED due to fall in NH, found down. Known positive for COVID-19 Social History Home: Assisted Living Current Living Status: Alone ADL-Prior Level of Function SCALE: Activities may be completed with or without assistive devices. 6-Drkmrlrmhg-yiqgujs completes the activity by him/herself with no assistance from a helper. 5-Set-up or Clean-up Assistance-helper sets up or cleans up; patient completes activity. [place] assists only prior to or following the activity. 4-Supervision or Touching Assistance-helper provides verbal cues and/or touching/steadying and/or contact guard assistance as patient completes activit y. Assistance may be provided throughout the activity or intermittently. 3-Partial/Moderate Assistance-helper does LESS THAN HALF the effort. [place] lifts, holds or supports trunk or limbs, but provides less than half the effort. 2-Substantial/Maximal Assistance-helper does MORE THAN HALF the effort. [place] lifts or holds trunk or limbs and provides more than half the effort. 3-Nzllmoyye-iwwaxw does ALL the effort. Patient does none of the effort to complete the activity. Or, the assistance of 2 or more helpers is required for the patient to complete the activity. If activity was not attempted, code reason: 7-Patient Refused. 9-Not Applicable-not attempted and the patient did not perform the activity before the current illness, exacerbation or injury. 10-Not Attempted due to Environmental Limitations-(lack of equipment, weather restraints, etc.). 88-Not Attempted due to Medical Conditions or Safety Concerns. ADL PLOF Comments Pt reports IND with ADLs and functional mobility at [facility], using a walking stick. Self Care: Independent Functional Cognition: Independent OT Current Status Subjective Pt standing at recliner, chair alarm going off upon OT arrival. Pt indicates he attempted to urinate but made a mess. ADL-Treatment Eating (QC): 6 (Per pt report.) Oral Hygiene (QC): 5 (Per clinical judgment.) Lower Body Dressing (QC): 4 (SBA, pt able to doff soiled brief and don new brief.) Toileting Hygiene (QC): 4 (SBA during clothing managment.) Other Treatments Pt standing at recliner, chair alarm going off. Pt states he had made a mess when trying to use urinal. OT redirected pt to sit in recliner, removed blankets from floor. OT placed walker in front of pt in order to transfer to toilet, pt pushed walker away, refusing to use it, so he required CGA-SBA during transfer from chair to toilet. Pt completed toileting, doffed soiled brief, then donned new brief. Pt transferred back to recliner, SBA, OT assisted with managing lines. Post tx, pt in recliner, call light in reach and all needs met. OT instructed pt to use call light if he needed something and not to get up by himself. Nurse aware of pt positioning. Education OT Patient Education: Correct positioning, Energy conservation, Modified ADL techniques, Progress toward Goal/Update tx plan, Purpose of tx/functional activities, Rehab process Teaching Recipient: Patient Teaching Methods: Discussion Response to Teaching: Verbalize Understanding OT Retirement Goals Retirement Goals Time Frame: Mar 22, 2022 Eating (QC): 6 Oral Hygiene (QC): 6 Toileting Hygiene (QC): 6 Shower/Bathe Self (QC): 4 Upper Body Dressing (QC): 5 Lower Body Dressing (QC): 5 On/Off Footwear (QC): 5 Additional Goals: 1-Demonstrate ADL Tasks, 2-Verbalize Understanding, 3- ImproveStrength/Taisha 1=Demonstrate adherence to instructed precautions during ADL tasks. 2=Patient will verbalize/demonstrate understanding of assistive devices/modifications for ADL. 3=Patient will improve strength/tolerance for activity to enable patient to perform ADL's. OT Education/Plan Problem List/Assessment Assessment: Decreased Activ Tolerance, Decreased Safety Aware, Decreased UE Strength, Impaired Funct Balance, Impaired I ADL's, Impaired Self-Care Skills Discharge Recommendations Plan/Recommendations: Continue POC Therapy Discharge Recommendati: Assisted Living Treatment Plan/Plan of Care Patient would benefit from OT for education, treatment and training to promote independence in ADL's, mobility, safety and/or upper extremity function for ADL's. Plan of Care: ADL Retraining, Functional Mobility, UE Funct Exercise/Act Treatment Duration: Mar 22, 2022 Frequency: 3 times per week (3-5 times per week) Rehab Potential: Fair Time/GCodes Start Time: 11:50 Stop Time: 12:15 Total Time Billed (hr/min): 25 Billed Treatment Time 1, EVL (10'), ADL (15') LONDON ROBERTS OT Mar 08, 2022 12:59
[2022-03-08] MEDS: SODIUM BICARBONATE 8.4% VIAL 75 MEQ in 1/2 NS IV SOLUTION 1,000 ML IV SCH (18:15)
[2022-03-08] MEDS: TAMSULOSIN 0.4 MG (FLOMAX) CAP PO SCH (20:36)
[2022-03-08] MEDS: FAMOTIDINE 20 MG (PEPCID) TABLET PO SCH (20:36)
[2022-03-09] MEDS: ACETAMINOPHEN 325 MG TABLET PO PRN (04:02)
[2022-03-09] MEDS: LEVOTHYROXINE 50 MCG (LEVOTHROID) TAB PO SCH (05:25)
[2022-03-09 05:56] LABS: BASOPHILS % (AUTO) 0 % (0-10); EOSINOPHILS % (AUTO) 1 % (0-10); HEMATOCRIT 22 % (40-54); HEMOGLOBIN 7.3 g/dL (13.3-17.7); LYMPHOCYTES # (AUTO) 0.4 10^3/uL (1.0-4.0); LYMPHOCYTES % (AUTO) 13 % (12-44); MEAN CORPUSCULAR HEMOGLOBIN 30 pg (25-34); MEAN CORPUSCULAR HGB CONC 33 g/dL (32-36); MEAN CORPUSCULAR VOLUME 91 fL (80-99); MEAN PLATELET VOLUME 11.9 fL (9.0-12.2); MONOCYTES # (AUTO) 0.7 10^3/uL (0.0-1.0); MONOCYTES % (AUTO) 24 % (0-12); NEUTROPHILS # (AUTO) 1.9 10^3/uL (1.8-7.8); NEUTROPHILS % (AUTO) 62 % (42-75); PLATELET COUNT 145 10^3/uL (130-400); WHITE BLOOD COUNT 3.1 10^3/uL (4.3-11.0)
[2022-03-09 06:24] LABS: ALBUMIN 2.6 GM/DL (3.2-4.5); BILIRUBIN,TOTAL 0.1 MG/DL (0.1-1.0); CALCIUM 7.9 MG/DL (8.5-10.1); CREATININE SERUM 1.21 MG/DL (0.60-1.30); POTASSIUM 3.7 MMOL/L (3.6-5.0); TOTAL PROTEIN 4.9 GM/DL (6.4-8.2)
--- NOTE | 2022-03-09 07:08 | Progress Note - Hospitalist ---
Subjective HPI/CC On Admission Date Seen by Provider: Mar 09, 2022 Time Seen by Provider: 10:30 Subarachnoid hemorrhage post fall Subjective/Events-last exam Doing better No cough No dyspnea No focal deficits Review of Systems General: Fatigue, Malaise Objective Exam Vital Signs Vital Signs Date Time Temp Pulse Resp B/P (MAP) Pulse Ox O2 Delivery O2 Flow Rate FiO2 03/09/22 11:27 35.8 57 18 141/63 95 Room Air 03/07/22 06:22 21 Capillary Refill : Less Than 3 Seconds General Appearance: No Apparent Distress, WD/WN, Chronically ill Respiratory: Lungs Clear, Normal Breath Sounds Cardiovascular: Regular Rate, Rhythm Neurologic/Psychiatric: Alert, Oriented x3, No Motor/Sensory Deficits, Normal Mood/Affect Results/Procedures Lab Laboratory Tests 03/09/22 05:41 Patient resulted labs reviewed. Assessment/Plan Assessment and Plan Assess & Plan/Chief Complaint Subarachnoid hemorrhage following fall COVID 19 infection Rhabdomyolysis HTN Normocytic anemia RHYS HLD Hypothyroidism PAD Subarachnoid hemorrhage following fall -CT yesterday showed no new hemorrhage -Strict BP control COVID 19 infection -Conservative management Rhabdomyolysis -Creatine kinase trending down HTN Normocytic anemia -Likely dilutional RHYS -Cr trending down HLD Hypothyroidism PAD Diet: Regular DVT prophylaxis: SCDs and ambulation Disposition: Will continue to monitor. JOSE BURROUGHS DO Mar 09, 2022 07:08
--- NOTE | 2022-03-09 10:29 | Physical Therapy Daily Note ---
PT Daily Note-Current Subjective Pt seated in chair upon arrival to room, agreeable to PT treatment this time, no c/o pain vocalized during session Appearance Following session, pt seated in chair with BLE elevated, call light and tray table within reach. All needs met at this time. Mental Status Patient Orientation: Person, Place Transfers SCALE: Activities may be completed with or without assistive devices. 4-Pyermnnzil-ncukyjm completes the activity by him/herself with no assistance from a helper. 5-Set-up or Clean-up Assistance-helper sets up or cleans up; patient completes activity. [place] assists only prior to or following the activity. 4-Supervision or Touching Assistance-helper provides verbal cues and/or touching/steadying and/or contact guard assistance as patient completes activity. Assistance may be provided throughout the activity or intermittently. 3-Partial/Moderate Assistance-helper does LESS THAN HALF the effort. [place] lifts, holds or supports trunk or limbs, but provides less than half the effort. 2-Substantial/Maximal Assistance-helper does MORE THAN HALF the effort. [place] lifts or holds trunk or limbs and provides more than half the effort. 1-Ulzaqnblz-dnwasy does ALL the effort. Patient does none of the effort to complete the activity. Or, the assistance of 2 or more helpers is required for the patient to complete the activity. If activity was not attempted, code reason: 7-Patient Refused. 9-Not Applicable-not attempted and the patient did not perform the activity before the current illness, exacerbation or injury. 10-Not Attempted due to Environmental Limitations-(lack of equipment, weather restraints, etc.). 88-Not Attempted due to Medical Conditions or Safety Concerns. Sit to Stand (QC): 5 Chair/Qqg-aj-Jgpgp Xfer(QC): 5 Weight Bearing Right Lower Extremity: Right Full Weight Bearing Left Lower Extremity: Left Full Weight Bearing Gait Training Distance: 120' Walk 10 feet (QC): 5 Walk 50 ft with 2 Turns(QC): 5 Walk 150 ft (QC): 5 Gait Assistive Device: FWW Occasional cueing for larger steps, especially with turning. Assessment Current Status: Good Progress Pt progressing well with PT treatment. PT Mcfp Goals Test Driver Goals PT Mcfp Goals Time Frame: Mar 16, 2022 Roll Left & Right (QC): 6 Sit to Lying (QC): 6 Lying-Sitting on Side/Bed(QC): 6 Sit to Stand (QC): 6 Chair/Ckw-im-Ikwqh Xfer(QC): 6 Toilet Transfer (QC): 6 Does the Patient Walk: Yes Walk 10 feet (QC): 6 Walk 50ft with 2 Turns (QC): 6 Walk 150 ft (QC): 6 PT Plan Problem List Problem List: Activity Tolerance, Functional Strength, Safety, Balance, Gait, Transfer, Bed Mobility, ROM Treatment/Plan Treatment Plan: Continue Plan of Care Treatment Plan: Bed Mobility, Education, Functional Activity Taisha, Functional Strength, Group Therapy, Gait, Safety, Therapeutic Exercise, Transfers Treatment Duration: Apr 13, 2022 Frequency: 6 times per week Estimated Hrs Per Day: .25 hour per day Patient and/or Family Agrees t: Yes Time/GCodes Time In: 1002 Time Out: 1019 Total Billed Treatment 1 visit GT (15') TERESE SAWYER PT Mar 09, 2022 10:29
[2022-03-09] MEDS: FAMOTIDINE 20 MG (PEPCID) TABLET PO SCH (20:24)
[2022-03-09] MEDS: TAMSULOSIN 0.4 MG (FLOMAX) CAP PO SCH (20:24)
[2022-03-10] MEDS: LEVOTHYROXINE 50 MCG (LEVOTHROID) TAB PO SCH (06:01)
[2022-03-10 06:25] LABS: BASOPHILS % (AUTO) 0 % (0-10); EOSINOPHILS # (AUTO) 0.1 10^3/uL (0.0-0.3); EOSINOPHILS % (AUTO) 5 % (0-10); HEMATOCRIT 24 % (40-54); HEMOGLOBIN 7.6 g/dL (13.3-17.7); LYMPHOCYTES # (AUTO) 0.5 10^3/uL (1.0-4.0); LYMPHOCYTES % (AUTO) 18 % (12-44); MEAN CORPUSCULAR HEMOGLOBIN 30 pg (25-34); MEAN CORPUSCULAR HGB CONC 32 g/dL (32-36); MEAN CORPUSCULAR VOLUME 93 fL (80-99); MONOCYTES # (AUTO) 0.5 10^3/uL (0.0-1.0); MONOCYTES % (AUTO) 18 % (0-12); NEUTROPHILS # (AUTO) 1.7 10^3/uL (1.8-7.8); NEUTROPHILS % (AUTO) 58 % (42-75); PLATELET COUNT 158 10^3/uL (130-400); WHITE BLOOD COUNT 2.8 10^3/uL (4.3-11.0)
[2022-03-10 06:28] LABS: ALBUMIN 2.8 GM/DL (3.2-4.5)
[2022-03-10 06:29] LABS: POTASSIUM 3.7 MMOL/L (3.6-5.0)
[2022-03-10 06:30] LABS: CALCIUM 8.2 MG/DL (8.5-10.1)
[2022-03-10 06:31] LABS: TOTAL PROTEIN 5.1 GM/DL (6.4-8.2)
[2022-03-10 06:33] LABS: BILIRUBIN,TOTAL 0.2 MG/DL (0.1-1.0)
[2022-03-10 06:35] LABS: CREATININE SERUM 1.08 MG/DL (0.60-1.30)
--- NOTE | 2022-03-10 07:05 | Progress Note - Hospitalist ---
Subjective HPI/CC On Admission Date Seen by Provider: Mar 10, 2022 Time Seen by Provider: 10:30 Subarachnoid hemorrhage post fall Subjective/Events-last exam No major issues No pain No cough No dyspnea Review of Systems General: Fatigue, Malaise Objective Exam Vital Signs Vital Signs Date Time Temp Pulse Resp B/P (MAP) Pulse Ox O2 Delivery O2 Flow Rate FiO2 03/10/22 19:50 Room Air 03/10/22 16:52 36.9 81 95 03/10/22 11:19 18 160/70 03/07/22 06:22 21 Capillary Refill : Less Than 3 Seconds General Appearance: No Apparent Distress, WD/WN, Chronically ill Respiratory: Lungs Clear, Normal Breath Sounds Cardiovascular: Regular Rate, Rhythm Neurologic/Psychiatric: Alert, Oriented x3, No Motor/Sensory Deficits, Normal Mood/Affect Results/Procedures Lab Laboratory Tests 03/10/22 05:59 Patient resulted labs reviewed. Assessment/Plan Assessment and Plan Assess & Plan/Chief Complaint Subarachnoid hemorrhage following fall COVID 19 infection Rhabdomyolysis HTN Normocytic anemia RHYS HLD Hypothyroidism PAD Subarachnoid hemorrhage following fall -CT yesterday showed no new hemorrhage -Strict BP control COVID 19 infection -Conservative management Rhabdomyolysis -Creatine kinase trending down HTN Normocytic anemia -Likely dilutional RHYS -Cr trending down HLD Hypothyroidism PAD Diet: Regular DVT prophylaxis: SCDs and ambulation Disposition: Will continue to monitor. JOSE BURROUGHS DO Mar 10, 2022 07:05
[2022-03-10 16:52] VITALS: BP 160/70
[2022-03-10] MEDS: FAMOTIDINE 20 MG (PEPCID) TABLET PO SCH (19:40)
[2022-03-10] MEDS: TAMSULOSIN 0.4 MG (FLOMAX) CAP PO SCH (19:40)
[2022-03-10 23:44] VITALS: BP 131/60
[2022-03-11] MEDS: LEVOTHYROXINE 50 MCG (LEVOTHROID) TAB PO SCH (05:35)
[2022-03-11 06:01] LABS: BASOPHILS % (AUTO) 0 % (0-10); EOSINOPHILS # (AUTO) 0.1 10^3/uL (0.0-0.3); EOSINOPHILS % (AUTO) 5 % (0-10); HEMATOCRIT 24 % (40-54); HEMOGLOBIN 7.9 g/dL (13.3-17.7); LYMPHOCYTES # (AUTO) 0.5 10^3/uL (1.0-4.0); LYMPHOCYTES % (AUTO) 17 % (12-44); MEAN CORPUSCULAR HEMOGLOBIN 30 pg (25-34); MEAN CORPUSCULAR HGB CONC 33 g/dL (32-36); MEAN CORPUSCULAR VOLUME 91 fL (80-99); MONOCYTES # (AUTO) 0.5 10^3/uL (0.0-1.0); MONOCYTES % (AUTO) 18 % (0-12); NEUTROPHILS # (AUTO) 1.6 10^3/uL (1.8-7.8); NEUTROPHILS % (AUTO) 60 % (42-75); PLATELET COUNT 163 10^3/uL (130-400); WHITE BLOOD COUNT 2.7 10^3/uL (4.3-11.0)
[2022-03-11 06:12] LABS: ALBUMIN 2.8 GM/DL (3.2-4.5)
[2022-03-11 06:13] LABS: POTASSIUM 3.8 MMOL/L (3.6-5.0)
[2022-03-11 06:14] LABS: CALCIUM 8.3 MG/DL (8.5-10.1)
[2022-03-11 06:15] LABS: TOTAL PROTEIN 5.3 GM/DL (6.4-8.2)
[2022-03-11 06:17] LABS: BILIRUBIN,TOTAL 0.3 MG/DL (0.1-1.0)
[2022-03-11 06:19] LABS: CREATININE SERUM 1.34 MG/DL (0.60-1.30)
[2022-03-11 08:31] VITALS: BP 141/64
--- NOTE | 2022-03-11 09:39 | Physical Therapy Daily Note ---
PT Daily Note-Current Subjective Patient agrees to PT. Mental Status Patient Orientation: Person, Time, Situation Transfers SCALE: Activities may be completed with or without assistive devices. 1-Ogwdbpzjcx-efrirku completes the activity by him/herself with no assistance from a helper. 5-Set-up or Clean-up Assistance-helper sets up or cleans up; patient completes activity. [place] assists only prior to or following the activity. 4-Supervision or Touching Assistance-helper provides verbal cues and/or touching/steadying and/or contact guard assistance as patient completes activity. Assistance may be provided throughout the activity or intermittently. 3-Partial/Moderate Assistance-helper does LESS THAN HALF the effort. [place] lifts, holds or supports trunk or limbs, but provides less than half the effort. 2-Substantial/Maximal Assistance-helper does MORE THAN HALF the effort. [place] lifts or holds trunk or limbs and provides more than half the effort. 0-Kihdnwqrp-exoyvp does ALL the effort. Patient does none of the effort to c omplete the activity. Or, the assistance of 2 or more helpers is required for the patient to complete the activity. If activity was not attempted, code reason: 7-Patient Refused. 9-Not Applicable-not attempted and the patient did not perform the activity before the current illness, exacerbation or injury. 10-Not Attempted due to Environmental Limitations-(lack of equipment, weather restraints, etc.). 88-Not Attempted due to Medical Conditions or Safety Concerns. Lying to Sitting/Side of Bed(Q: 4 Sit to Stand (QC): 4 Chair/Kfw-wc-Fubdh Xfer(QC): 4 SBA with all mobility Weight Bearing Right Lower Extremity: Right Full Weight Bearing Left Lower Extremity: Left Full Weight Bearing Gait Training Distance: 150' in room Walk 10 feet (QC): 4 Walk 50 ft with 2 Turns(QC): 4 Walk 150 ft (QC): 4 Gait Assistive Device: FWW slow, steady, SBA with all mobility Assessment Patient is up in recliner and ceases treatment wanting to eat breakfast in "silence". PT to increase activity as allow by patient. PT Job Coaching Goals Job Coaching Goals PT Job Coaching Goals Time Frame: Mar 16, 2022 Roll Left & Right (QC): 6 Sit to Lying (QC): 6 Lying-Sitting on Side/Bed(QC): 6 Sit to Stand (QC): 6 Chair/Mxm-ey-Cwsol Xfer(QC): 6 Toilet Transfer (QC): 6 Does the Patient Walk: Yes Walk 10 feet (QC): 6 Walk 50ft with 2 Turns (QC): 6 Walk 150 ft (QC): 6 PT Plan Treatment/Plan Treatment Plan: Continue Plan of Care Treatment Plan: Bed Mobility, Education, Functional Activity Taisha, Functional Strength, Group Therapy, Gait, Safety, Therapeutic Exercise, Transfers Treatment Duration: Apr 13, 2022 Frequency: 6 times per week Estimated Hrs Per Day: .25 hour per day Patient and/or Family Agrees t: Yes Time/GCodes Time In: 851 Time Out: 901 Total Billed Treatment Time: 10 Total Billed Treatment 1 visit FA 10 min NIRANJAN OZUNA PT Mar 11, 2022 09:39
--- NOTE | 2022-03-11 10:31 | Progress Note - Hospitalist ---
Subjective HPI/CC On Admission Date Seen by Provider: Mar 11, 2022 Time Seen by Provider: 10:00 Subarachnoid hemorrhage post fall Objective Exam Vital Signs Vital Signs Date Time Temp Pulse Resp B/P (MAP) Pulse Ox O2 Delivery O2 Flow Rate FiO2 03/11/22 15:48 37.4 65 20 141/64 94 Room Air 03/07/22 06:22 21 Capillary Refill : Less Than 3 Seconds Results/Procedures Lab Laboratory Tests 03/11/22 05:35 Patient resulted labs reviewed. Assessment/Plan Assessment and Plan Assess & Plan/Chief Complaint Subarachnoid hemorrhage following fall COVID 19 infection Rhabdomyolysis HTN Normocytic anemia RHYS HLD Hypothyroidism PAD Subarachnoid hemorrhage following fall -CT yesterday showed no new hemorrhage -Strict BP control COVID 19 infection -Conservative management Rhabdomyolysis -Creatine kinase trending down HTN Normocytic anemia -Likely dilutional RHYS -Cr trending down HLD Hypothyroidism PAD Diet: Regular DVT prophylaxis: SCDs and ambulation Disposition: Will continue to monitor. JOSE BURROUGHS DO Mar 11, 2022 10:31
--- NOTE | 2022-03-11 12:42 | Occupational Ther Daily Note ---
OT Current Status-Daily Note Subjective Pt up in recliner, MALINDA coordinator present. Pt agreeable to OT tx, indicates he is returning to [facility] later today. Mental Status/Objective Patient Orientation: Person, Place, Situation ADL-Treatment Therapy Code Descriptions/Definitions Functional [place] Measure: 0=Not Assessed/NA 4=Minimal Assistance 1=Total Assistance 5=Supervision or Setup 2=Maximal Assistance 6=Modified [place] 3=Moderate Assistance 7=Complete IndependenceSCALE: Activities may be completed with or without assistive devices. 9-Qiifumhbtu-afrkomn completes the activity by him/herself with no assistance from a helper. 5-Set-up or Clean-up Assistance-helper sets up or cleans up; patient completes activity. Yeoman assists only prior to or following the activity. 4-Supervision or Touching Assistance-helper provides verbal cues and/or touching/steadying and/or contact guard assistance as patient completes activity. Assistance may be provided throughout the activity or intermittently. 3-Partial/Moderate Assistance-helper does LESS THAN HALF the effort. Yeoman lifts, holds or supports trunk or limbs, but provides less than half the effort. 2-Substantial/Maximal Assistance-helper does MORE THAN HALF the effort. Yeoman lifts or holds trunk or limbs and provides more than half the effort. 8-Fzfgasqsx-clwzxy does ALL the effort. Patient does none of the effort to complete the activity. Or, the assistance of 2 or more helpers is required for the patient to complete the activity. If activity was not attempted, code reason: 7-Patient Refused. 9-Not Applicable-not attempted and the patient did not perform the activity before the current illness, exacerbation or injury. 10-Not Attempted due to Environmental Limitations-(lack of equipment, weather restraints, etc.). 88-Not Attempted due to Medical Conditions or Safety Concerns. Oral Hygiene (QC): 4 (supervision standing at sink) Toileting Hygiene (QC): 4 (supervision) Other Treatment Pt in recliner, used FWW into bathroom, supervision. Pt stood at sink to brush his dentures, pt required increased time as he was very thorough with brushing. Pt requests to use toilet, transferring to toilet with supervision. Pt instructed to pull call light cord when finished, he verbalized understanding. Pt's nurse/aides aware of pt position. OT Home Health Physical Therapist Goals Alf Goals Time Frame: Mar 22, 2022 Eating (QC): 6 Oral Hygiene (QC): 6 Toileting Hygiene (QC): 6 Shower/Bathe Self (QC): 4 Upper Body Dressing (QC): 5 Lower Body Dressing (QC): 5 On/Off Footwear (QC): 5 Additional Goals: 1-Demonstrate ADL Tasks, 2-Verbalize Understanding, 3- ImproveStrength/Taisha 1=Demonstrate adherence to instructed precautions during ADL tasks. 2=Patient will verbalize/demonstrate understanding of assistive devices/modifications for ADL. 3=Patient will improve strength/tolerance for activity to enable patient to perform ADL's. OT Education/Plan Problem List/Assessment Assessment: Decreased Activ Tolerance, Decreased UE Strength, Impaired I ADL's Discharge Recommendations Plan/Recommendations: Continue POC Treatment Plan/Plan of Care Patient would benefit from OT for education, treatment and training to promote independence in ADL's, mobility, safety and/or upper extremity function for ADL's. Plan of Care: ADL Retraining, Functional Mobility, UE Funct Exercise/Act Treatment Duration: Mar 22, 2022 Frequency: 3 times per week (3-5 times per week) Rehab Potential: Fair Time/GCodes Start Time: 11:33 Stop Time: 12:00 Total Time Billed (hr/min): 27 Billed Treatment Time 1, ADL 2 LONDON ROBERTS OT Mar 11, 2022 12:42
[2022-03-11] MEDS ORDERED: ASPI-1238 PO (13:24)
[2022-03-11] MEDS ORDERED: CLOP75TA69 PO (13:24)
--- NOTE | 2022-03-11 13:25 | Discharge Summary ---
Discharge Summary Hospital Course Was the Problem List Reviewed?: Yes Problems/Dx: (1) COVID (2) Subarachnoid hemorrhage Status: Acute (3) Fall Status: Acute Qualifiers: Qualified Codes: W19.XXXA - Unspecified fall, initial encounter (4) PAD (peripheral artery disease) Status: Chronic (5) CAD (coronary artery disease) Status: Chronic Qualifiers: Qualified Codes: I25.10 - Atherosclerotic heart disease of [place] coronary artery without angina pectoris (6) Hypothyroidism Status: Chronic Qualifiers: Qualified Codes: E03.9 - Hypothyroidism, unspecified (7) Acute kidney failure Status: Acute (8) HTN (hypertension) Status: Chronic Qualifiers: Qualified Codes: I10 - Essential (primary) hypertension (9) HLD (hyperlipidemia) Status: Chronic (10) Rhabdomyolysis Status: Acute Qualifiers: Qualified Codes: T79.6XXA - Traumatic ischemia of muscle, initial encounter Hospital Course Date of Admission: Mar 07, 2022 at 04:41 Admission Diagnosis : Family Physician/Provider: Frankie Rascon MD Date of Discharge: 03/11/22 Discharge Diagnosis: [ ] Hospital Course: Pt had an uneventful hospital course for 5 days after he was admitted following a fall and a subarachnoid hemorrhage. Repeat CT scan did not show any evidence of any type of expansion of the subarachnoid. COVID dx. He was deemed stable for discharge. He will restart his blood thinners, Plavix and Aspirin for severe PVD on 03/21/22. We will monitor pt closely in the meantime. Labs and Pending Lab Test: Laboratory Tests 03/10/22 20:33: Total Creatine Kinase 393H 03/11/22 05:35: White Blood Count 2.7L, Red Blood Count 2.67L, Hemoglobin 7.9L, Hematocrit 24L, Mean Corpuscular Volume 91, Mean Corpuscular Hemoglobin 30, Mean Corpuscular Hemoglobin Concent 33, Red Cell Distribution Width 13.3, Platelet Count 163, Mean Platelet Volume 12.0, Immature Granulocyte % (Auto) 0, Neutrophils (%) (Auto) 60, Lymphocytes (%) (Auto) 17, Monocytes (%) (Auto) 18H, Eosinophils (%) (Auto) 5, Basophils (%) (Auto) 0, Neutrophils # (Auto) 1.6L, Lymphocytes # (Auto) 0.5L, Monocytes # (Auto) 0.5, Eosinophils # (Auto) 0.1, Basophils # (Auto) 0.0, Immature Granulocyte # (Auto) 0.0, Sodium Level 142, Potassium Level 3.8, Chloride Level 110H, Carbon Dioxide Level 24, Anion Gap 8, Blood Urea Nitrogen 32H, Creatinine 1.34H, Estimat Glomerular Filtration Rate 51, BUN/Creatinine Ratio 24, Glucose Level 88, Calcium Level 8.3L, Corrected Calcium 9.3, Total Bilirubin 0.3, Aspartate Amino Transf (AST/SGOT) 28, Alanine Aminotransferase (ALT/SGPT) 13, Alkaline Phosphatase 46, Total Protein 5.3L, Albumin 2.8L Home Meds Active Plavix (Clopidogrel Bisulfate) 75 Mg Tablet 75 Mg PO DAILY 10 Days hold until 03/21/22 Aspirin EC (Aspirin) 81 Mg Tablet.dr 81 Mg PO DAILY 10 Days hold until 03/21/22 Reported A and D Ointment (Vits A and D/White Pet/Lanolin) 42.5 Gm Oint...g. 1 Applic TP DAILY APPLY BELOW THE KNEE TO TOES BILATERAL LOWER LEGS Isosorbide Mononitrate ER (Isosorbide Mononitrate) 30 Mg Tab.er.24h 30 Mg PO DAILY Tylenol (Acetaminophen) 325 Mg Tablet 650 Mg PO Q4H PRN Biotin 5 Mg Capsule 10 Mg PO DAILY TAKES 2 (5MG) CAPS Albuterol Sulfate 2.5 Mg/3 Ml (0.083 %) Vial.neb 2.5 Mg NEB BID PRN Ferrous Sulfate 325 Mg (65 Mg Iron) Tablet 325 Mg PO DAILY Guaifenesin 400 Mg Tablet 400 Mg PO Q4HRS PRN Loratadine 10 Mg Tablet 10 Mg PO DAILY PRN Fluticasone Propionate 50 Mcg/Actuation [place].susp 1 [place] NSEACH DAILY PRN Pentoxifylline 400 Mg Tablet.er 400 Mg PO TID Vitamin C (Ascorbate Calcium) 500 Mg Tablet 500 Mg PO BID Hydrochlorothiazide 25 Mg Tablet 25 Mg PO DAILY Artificial Tears (Dextran 70/Hypromellose) 1 Each Drope[place] 1 Drop OU DAILY Diphenhydramine HCl 25 Mg Capsule 25 Mg PO HS Imodium A-D (Loperamide HCl) 2 Mg Capsule 2 Mg PO Q6H PRN Vitamin D3 (Cholecalciferol (Vitamin D3)) 125 Mcg (5000 Unit) Capsule 125 Mcg PO DAILY Pepcid (Famotidine) 20 Mg Tablet 20 Mg PO HS Lasix (Furosemide) 20 Mg Tablet 20 Mg PO DAILY Flomax (Tamsulosin HCl) 0.4 Mg Cap 0.4 Mg PO HS Acetaminophen 325 Mg Tablet 650 Mg PO HS Probiotic (L.acidoph & Paracasei,B.lactis) 10 Billion Cell Capsule 1 Cap PO HS Levothyroxine Sodium 50 Mcg Tablet 50 Mcg PO DAILY Atorvastatin Calcium 20 Mg Tablet 20 Mg PO HS Assessment/Pt Instructions AL readmit Discharge Planning: <30 minutes discharge planning Discharge Physical Examination Vital Signs Vital Signs Date Time Temp Pulse Resp B/P (MAP) Pulse Ox O2 Delivery O2 Flow Rate FiO2 03/11/22 08:31 37.4 65 20 141/64 (89) 94 Room Air 03/07/22 06:22 21 General Appearance: No Apparent Distress, WD/WN, Chronically ill Allergies: Coded Allergies: No Known Drug Allergies (Unverified , 10/07/18) Discharge Summary Date of Admission Mar 07, 2022 at 04:41 Date of Discharge Discharge Date: Mar 11, 2022 Discharge Diagnosis Subarachnoid hemorrhage following fall COVID 19 infection Rhabdomyolysis HTN Normocytic anemia RHYS HLD Hypothyroidism PAD Subarachnoid hemorrhage following fall -CT yesterday showed no new hemorrhage -Strict BP control COVID 19 infection -Conservative management Rhabdomyolysis -Creatine kinase trending down HTN Normocytic anemia -Likely dilutional RHYS -Cr trending down HLD Hypothyroidism PAD Diet: Regular DVT prophylaxis: SCDs and ambulation Disposition: Will continue to monitor. JOSE BURROUGHS DO Mar 11, 2022 13:25
[2022-03-11] MEDS: ACETAMINOPHEN 325 MG TABLET PO PRN (15:11)
[2022-03-11 15:48] VITALS: BP 141/64
== END 2022-03-11 15:55 | disposition home or self-care (01) | DRG 85 ==
LOC: EDUNIT# 01:44 → ER 01:45 → ICU 04:41 → 4TH 03-08 13:02
PROVIDERS: ADMIT Family Medicine; ATTEND Internal Medicine
PROC: 8E0ZXY6 Isolation (ICD-10-PCS; principal; 2022-03-07)
DX: S06.6X0A Traumatic subarachnoid hemorrhage without loss of consciousness, initial encounter (principal); U07.1 COVID-19; N17.9 Acute kidney failure, unspecified; M62.82 Rhabdomyolysis; R40.2412 Glasgow coma scale score 13-15, at arrival to emergency department; W18.30XA Fall on same level, unspecified, initial encounter; Z79.82 Long term (current) use of aspirin; Z79.899 Other long term (current) drug therapy; E03.9 Hypothyroidism, unspecified; I73.9 Peripheral vascular disease, unspecified; N18.9 Chronic kidney disease, unspecified; I25.10 Atherosclerotic heart disease of native coronary artery without angina pectoris; D63.1 Anemia in chronic kidney disease; I12.9 Hypertensive chronic kidney disease with stage 1 through stage 4 chronic kidney disease, or unspecified chronic kidney disease; Z95.820 Peripheral vascular angioplasty status with implants and grafts; Z87.891 Personal history of nicotine dependence; E78.5 Hyperlipidemia, unspecified
CPT/HCPCS: 36415; 70450; 72125; 80048; 80053; 82550; 82947; 83735; 84100; 84484; 85007; 85025; 85027; 85610; 85730; 93005; 94664

== ENCOUNTER 2022-07-09 10:12 | Emergency (ER) | payer MEDICAID ==
[~2022-07-09] VITALS: Ht 173 cm; Wt 60.0 kg
[~2022-07-09 10:12] MED LIST changes: +ACET325T38 PO; +ALBU2.5V4 NEB; +ISOS30TA82 PO
--- NOTE | 2022-07-09 10:33 | ED General ---
General Chief Complaint: Altered Mental Status Stated Complaint: MENTAL STATUS CHANGE Source of Information: Patient, EMS, [facility] Records, RN/MD Exam Limitations: No Limitations History of Present Illness Date Seen by Provider: Jul 09, 2022 Time Seen by Provider: 10:14 Initial Comments 87-year-old male with past medical history CAD, PVD, HTN, HLD, hypothyroid [facility]. Last seen normal around 9 PM last night, has been confused somewhat this morning and generally more weak. Typically ambulates on his own with a walker. Denies any falls, pain anywhere, chest pain, shortness of breath, abdominal pain, nausea, vomiting, diarrhea, fever, chills, focal weakness or numbness, vision changes, or any other concerns. The patient has no complaints at this time. He does have chronic edema in his lower extremities and venous stasis changes they note in the [facility] Allergies and Home Medications Allergies Coded Allergies: No Known Drug Allergies (Unverified , 10/07/18) Patient Home Medication List Home Medication List Reviewed: Yes Acetaminophen (Acetaminophen) 325 Mg Tablet, 650 MG PO HS, (Reported) Entered as Reported by: CRISTELA TORREZ on 10/07/18 1021 Acetaminophen (Tylenol) 325 Mg Tablet, 650 MG PO Q4H PRN for PAIN-MILD (1-4), (Reported) Entered as Reported by: JARRET DEWEY on 03/07/22 1003 Albuterol Sulfate (Albuterol Sulfate) 2.5 Mg/3 Ml (0.083 %) Vial.neb, 2.5 MG NEB BID PRN for SHORTNESS OF BREATH, (Reported) Entered as Reported by: JARRET DEWEY on 03/07/22 1003 Ascorbate Calcium (Vitamin C) 500 Mg Tablet, 500 MG PO BID, (Reported) Entered as Reported by: IMAN ROMERO on 12/14/21 0809 Aspirin (Aspirin EC) 81 Mg Tablet.dr, 81 MG PO DAILY Prescribed by: JOSE BURROUGHS on 03/11/22 1324 Atorvastatin Calcium (Atorvastatin Calcium) 20 Mg Tablet, 20 MG PO HS, (Reported) Entered as Reported by: ABHISHEK MOORE on 08/21/18 0953 Biotin (Biotin) 5 Mg Capsule, 10 MG PO DAILY, (Reported) Entered as Reported by: JARRET DEWEY on 03/07/22 100 Cholecalciferol (Vitamin D3) (Vitamin D3) 125 Mcg (5000 Unit) Capsule, 125 MCG PO DAILY, (Reported) Entered as Reported by: IMAN ROMERO on 12/14/21808 Clopidogrel Bisulfate (Plavix) 75 Mg Tablet, 75 MG PO DAILY Prescribed by: JOSE BURROUGHS on 03/11/22 1324 Dextran 70/Hypromellose (Artificial Tears) 1 Each Droperette, 1 DROP OU DAILY, (Reported) Entered as Reported by: IMAN ROMERO on 12/14/21808 Diphenhydramine HCl (Diphenhydramine HCl) 25 Mg Capsule, 25 MG PO HS, (Reported) Entered as Reported by: IMAN ROMERO on 12/14/21808 Famotidine (Pepcid) 20 Mg Tablet, 20 MG PO HS, (Reported) Entered as Reported by: JARRET DEWEY on 05/12/19 09 Ferrous Sulfate (Ferrous Sulfate) 325 Mg (65 Mg Iron) Tablet, 325 MG PO DAILY, (Reported) Entered as Reported by: JARRET DEWEY on 03/07/22 100 Fluticasone Propionate (Fluticasone Propionate) 50 Mcg/Actuation Crewe.susp, 1 SPRAY NSEACH DAILY PRN for ALLERGY SYMPTOMS, (Reported) Entered as Reported by: IMAN ROMERO on 12/14/21808 Furosemide (Lasix) 20 Mg Tablet, 20 MG PO DAILY, (Reported) Entered as Reported by: JARRET DEWEY on 05/12/19927 Guaifenesin (Guaifenesin) 400 Mg Tablet, 400 MG PO Q4HRS PRN for COUGH, (Reported) Entered as Reported by: IMAN ROMERO on 12/14/21 08 Hydrochlorothiazide (Hydrochlorothiazide) 25 Mg Tablet, 25 MG PO DAILY, (Reported) Entered as Reported by: IMAN ROMERO on 12/14/21 08 Isosorbide Mononitrate (Isosorbide Mononitrate ER) 30 Mg Tab.er.24h, 30 MG PO DAILY, (Reported) Entered as Reported by: JARRET DEWEY on 03/07/22 100 L.acidoph & Paracasei,B.lactis (Probiotic) 10 Billion Cell Capsule, 1 CAP PO HS, (Reported) Entered as Reported by: MARIBEL SEVILLA on 10/06/18 1140 Levothyroxine Sodium (Levothyroxine Sodium) 50 Mcg Tablet, 50 MCG PO DAILY, ( Reported) Entered as Reported by: CRISTELA TORREZ on 08/24/18 0947 Loperamide HCl (Imodium A-D) 2 Mg Capsule, 2 MG PO Q6H PRN for DIARRHEA, (Reported) Entered as Reported by: IMAN ROMERO on 12/14/21 0809 Loratadine (Loratadine) 10 Mg Tablet, 10 MG PO DAILY PRN for ALLERGIES, (Reported) Entered as Reported by: IMAN ROMERO on 12/14/21 0809 Pentoxifylline (Pentoxifylline) 400 Mg Tablet.er, 400 MG PO TID, (Reported) Entered as Reported by: IMAN ROMERO on 12/14/21 0809 Tamsulosin HCl (Flomax) 0.4 Mg Cap, 0.4 MG PO HS, (Reported) Entered as Reported by: JARRET DEWEY on 05/12/19 0928 Vits A and D/White Pet/Lanolin (A and D Ointment) 42.5 Gm Oint...g., 1 APPLIC TP DAILY, (Reported) Entered as Reported by: JARRET DEWEY on 03/07/22 1009 Review of Systems Review of Systems Constitutional: No fever EENTM: no symptoms reported Respiratory: no symptoms reported Cardiovascular: no symptoms reported Gastrointestinal: no symptoms reported Genitourinary: no symptoms reported Musculoskeletal: no symptoms reported Skin: see HPI Psychiatric/Neurological: See HPI Hematologic/Lymphatic: No Symptoms Reported Immunological/Allergic: no symptoms reported All Other Systems Reviewed Negative Unless Noted: Yes Past Vfojspp-Olrght-Odilhx Hx Patient Social History Tobacco Use?: No Use of E-Cig and/or Vaping dev: No Substance use?: No Alcohol Use?: No Pt feels they are or have been: No Immunizations Up To Date PED Vaccines UTD: No Seasonal Allergies Seasonal Allergies: Yes (hayfever) Past Medical History Surgeries: Yes Cardiac Respiratory: No Currently Using CPAP: No Currently Using BIPAP: No Cardiac: Yes Hypertension, Peripheral Vascular Neurological: No Reproductive Disorders: No Sexually Transmitted Disease: No Genitourinary: No Gastrointestinal: No Musculoskeletal: No Endocrine: Yes Hypothyroidsim HEENT: No Loss of Vision: Bilateral Hearing Impairment: Hard of Hearing Cancer: No Psychosocial: No Integumentary: No Blood Disorders: No Adverse Reaction/Blood Tranf: No Family Medical History No Pertinent Family Hx Physical Exam Vital Signs Vital Signs - First Documented 07/09/22 10:19 Temp 36.0 Pulse 72 Resp 18 B/P (MAP) 181/108 (132) Pulse Ox 95 Capillary Refill : Height, Weight, BMI Height: 5'10.00" Weight: 137lbs. 2.0oz. 62.973237dd; 19.15 BMI Method:Stated General Appearance: No Apparent Distress, Thin Eyes: Bilateral Eye Normal Inspection HEENT: PERRL/EOMI, Normal ENT Inspection, Pharynx Normal Neck: Full Range of Motion, Normal Inspection, Non Tender, Supple Respiratory: Chest Non Tender, Lungs Clear, Normal Breath Sounds, No Accessory Muscle Use, No Respiratory Distress Cardiovascular: Regular Rate, Rhythm, No Edema, Normal Peripheral Pulses Gastrointestinal: Normal Bowel Sounds, Non Tender, Soft; No Guarding Back: Normal Inspection, No CVA Tenderness, No Vertebral Tenderness Extremity: Normal Capillary Refill, Non Tender, No Calf Tenderness, Other (Bilateral 1+ lower extremity edema with what appears to be arterial insufficiency and redness, redness little bit greater on the left) Neurologic/Psychiatric: Alert, No Motor/Sensory Deficits, Normal Mood/Affect, 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, Other (Oriented to person, place, and day of the week, unsure of the year) Skin: Normal Color, Warm/Dry Lymphatic: No Adenopathy Progress/Results/Core Measures Suspected Sepsis SIRS Temperature: Pulse: Respiratory Rate: Laboratory Tests 07/09/22 10:20: White Blood Count 10.3 Blood Pressure / Mean: Laboratory Tests 07/09/22 10:20: Creatinine 1.69H, INR Comment 0.9, Platelet Count 258, Total Bilirubin 0.5 Results/Orders Lab Results Laboratory Tests Test 07/09/22 10:20 Range/Units White Blood Count 10.3 4.3-11.0 10^3/uL Red Blood Count 4.23 L 4.30-5.52 10^6/uL Hemoglobin 12.0 L 13.3-17.7 g/dL Hematocrit 36 L 40-54 % Mean Corpuscular Volume 86 80-99 fL Mean Corpuscular Hemoglobin 28 25-34 pg Mean Corpuscular Hemoglobin Concent 33 32-36 g/dL Red Cell Distribution Width 14.3 10.0-14.5 % Platelet Count 258 130-400 10^3/uL Mean Platelet Volume 11.6 9.0-12.2 fL Immature Granulocyte % (Auto) 0 % Neutrophils (%) (Auto) 88 H 42-75 % Lymphocytes (%) (Auto) 4 L 12-44 % Monocytes (%) (Auto) 8 0-12 % Eosinophils (%) (Auto) 0 0-10 % Basophils (%) (Auto) 0 0-10 % Neutrophils # (Auto) 9.0 H 1.8-7.8 10^3/uL Lymphocytes # (Auto) 0.4 L 1.0-4.0 10^3/uL Monocytes # (Auto) 0.8 0.0-1.0 10^3/uL Eosinophils # (Auto) 0.0 0.0-0.3 10^3/uL Basophils # (Auto) 0.0 0.0-0.1 10^3/uL Immature Granulocyte # (Auto) 0.0 0.0-0.1 10^3/uL Neutrophils % (Manual) 90 % Lymphocytes % (Manual) 3 % Monocytes % (Manual) 7 % Eosinophils % (Manual) 0 % Basophils % (Manual) 0 % Band Neutrophils 0 % Blood Morphology Comment NORMAL Prothrombin Time 13.0 12.2-14.7 SEC INR Comment 0.9 0.8-1.4 Activated Partial Thromboplast Time 30 24-35 SEC Sodium Level 141 135-145 MMOL/L Potassium Level 3.4 L 3.6-5.0 MMOL/L Chloride Level 101 98-107 MMOL/L Carbon Dioxide Level 27 21-32 MMOL/L Anion Gap 13 5-14 MMOL/L Blood Urea Nitrogen 43 H 7-18 MG/DL Creatinine 1.69 H 0.60-1.30 MG/DL Estimat Glomerular Filtration Rate 39 BUN/Creatinine Ratio 25 Glucose Level 125 H 70-105 MG/DL Calcium Level 10.4 H 8.5-10.1 MG/DL Corrected Calcium 10.3 H 8.5-10.1 MG/DL Magnesium Level 1.9 1.6-2.4 MG/DL Total Bilirubin 0.5 0.1-1.0 MG/DL Aspartate Amino Transf (AST/SGOT) 23 5-34 U/L Alanine Aminotransferase (ALT/SGPT) 18 0-55 U/L Alkaline Phosphatase 73 40-136 U/L Troponin I 0.032 H <0.028 NG/ML C-Reactive Protein High Sensitivity 0.67 H 0.00-0.50 MG/DL B-Type Natriuretic Peptide 427.8 H <100.0 PG/ML Total Protein 8.0 6.4-8.2 GM/DL Albumin 4.1 3.2-4.5 GM/DL Lipase 27 8-78 U/L My Orders Orders - ABHISHEK FLORES MD Ekg Tracing (07/09/22 10:15) Ct Head Wo (07/09/22 10:28) Ed Iv/Invasive Line Start (07/09/22 10:28) Chest 1 View, Ap/Pa Only (07/09/22 10:28) Bnp Brian (07/09/22 10:28) Cbc With Automated Diff (07/09/22 10:28) Comprehensive Metabolic Panel (07/09/22 10:28) Hs C Reactive Protein (07/09/22 10:28) Lipase (07/09/22 10:28) Magnesium (07/09/22 10:28) Protime With Inr (07/09/22 10:28) Partial Thromboplastin Time (07/09/22 10:28) Troponin I [place] (07/09/22 10:28) Ua Culture If Indicated (07/09/22 10:28) Ekg Tracing (07/09/22 10:28) Monitor-Rhythm Ecg Trace Only (07/09/22 10:28) Manual Differential (07/09/22 10:20) Vital Signs/I&O 07/09/22 07/09/22 10:19 10:45 Temp 36.0 Pulse 72 Resp 18 B/P (MAP) 181/108 (132) 164/84 (110) Pulse Ox 95 Capillary Refill : Progress Note : Progress Note 87-year-old male with above history coming in due to confusion. ABCs were intact and vitals were stable on presentation. Physical exam with no obvious focal deficits, obviously slightly confused. Disoriented more to the date. EKG with no acute ischemic changes. An IV was placed and basic labs were obtained. CT head concerning for large intraventricular hematoma to the left frontal lobe. The patient's blood pressure was initially hypertensive, but on reassessment systolic was in the 130s. We will hold off on IV medication for his blood pressure at this time. He has not on any reversible blood thinners. He does have listed that he takes Plavix for his CAD. I contacted [facility] given likely higher level of needs with a facility with a neurosurgeon. He was excepted for further evaluation and management. We contacted the patient's friend who is listed as his next of kin. He does not have an official DPOA. He states he has no family. He states he would like this friend, Moni Moore, to make decisions for him if he couldn't. Her number is [phone]. He has a DNR/DNI form that was [facility] with the [facility] from [facility]. He is confused at this time, but does make conversation. He is able to corroborate this. We will honor the DNR at this time if things were to worsen. ECG Initial ECG Impression Date: Jul 09, 2022 Initial ECG Impression Time: 10:22 Initial ECG Rate: 77 Initial ECG Rhythm: Normal Sinus Comment Narrow QRS, left axis deviation, T wave inversions in the lateral leads, no significant ST changes Diagnostic Imaging Diagonstic Imaging: CT (head) Comments [facility] [employer] [facility] [place], [place] NAME: VERA LAZAR [facility] REC#: [id number] PT STATUS: REG ER : 1935 PHYSICIAN: ABHISHEK FOLRES MD ADMIT DATE: 07/09/22/ER Draft Date of Exam:07/09/22 CT HEAD WO PROCEDURE: CT head without contrast. TECHNIQUE: Multiple contiguous axial images were obtained through the brain without the use of intravenous contrast. Auto Exposure Controls were utilized during the CT exam to meet ALARA standards for radiation dose reduction. INDICATION: Altered mental status. COMPARISON: 03/08/2022. FINDINGS: Since the previous exam, there has been interval development of a large acute intraparenchymal hematoma within the anterior left frontal lobe. It measures approximately 4 x 4.8 x 5.5 cm. Note is also made of intraventricular extension with blood products seen in the occipital horns of the bilateral lateral ventricles. There is also moderate associated surrounding edema with mass effect and midline shift. Midline shift measures approximately 4 mm. There is also significant compression of the anterior margins of the left lateral ventricle. Ventricles and cortical sulci are otherwise moderately diffusely prominent consistent with age-related parenchymal volume loss. There are also scattered and confluent areas of decreased attenuation within the periventricular and subcortical deep white matter consistent with chronic small vessel ischemic changes. Bony calvarium is intact. Paranasal sinuses and mastoid air cells are clear. IMPRESSION: 1. Interval development of large acute intraparenchymal hematoma within the anterior left frontal lobe with intraventricular extension. 2. Moderate surrounding edema with mass effect and associated left to right midline shift. 3. Background age-related parenchymal volume loss and chronic small vessel ischemic changes in the deep white matter. Results were discussed with Dr. Flores by Dr. Galicia at 1100 hours on 07/09/2022. Dictated on workstation # [id number] Dict: 07/09/22 1059 Trans: 07/09/22 1112 [id number] Interpreted by: VALENTINE GALICIA MD Electronically signed by: [facility]. [place], [place] NAME: NAGIABBI [facility] REC#: [id number] PT STATUS: REG ER : 1935 PHYSICIAN: ABHISHEK FLORES MD ADMIT DATE: 07/09/22/ER Draft Date of Exam:07/09/22 CHEST 1 VIEW, AP/PA ONLY INDICATION: Altered mental status. COMPARISON: 12/14/2021 chest x-ray. FINDINGS: There are increased interstitial markings bilaterally, most prominently in the lung bases, right worse than left. There is also some atelectasis in the right lung base today. The heart is mildly enlarged. No pneumothorax. I could not exclude a small right basilar pleural effusion. IMPRESSION: Increasing bibasilar infiltrates with a probable small right basilar pleural effusion when compared with the previous exam. Dictated on workstation # [id number] Dict: 07/09/22 1058 Trans: 07/09/22 1105 [id number] Interpreted by: TASHA NEELY MD Electronically signed by: Departure Impression Primary Impression: Intraparenchymal hematoma of brain Qualified Codes: S06.320A - Contusion and laceration of left cerebrum without loss of consciousness, initial encounter Disposition: XFER SHT-TRM HOSP Condition: Stable Admissions Decision to Admit/Date: Jul 09, 2022 Time/Decision to Admit Time: 11:25 Transfer Transfer Reason: Exceeds level of care (needs neurosurgeon) Transfer Progress Notes Accepted by Dr. Jsoeph Fontenot Transfer Facility: [facility] Method of Transfer: Air Departure-Patient Inst. Referrals: VERA EARLY MD (PCP/Family) Primary Care Physician ABHISHEK FLORES MD Jul 09, 2022 10:33
[2022-07-09 10:42] LABS: BASOPHILS % (AUTO) 0 % (0-10); EOSINOPHILS % (AUTO) 0 % (0-10); HEMATOCRIT 36 % (40-54); LYMPHOCYTES # (AUTO) 0.4 10^3/uL (1.0-4.0); LYMPHOCYTES % (AUTO) 4 % (12-44); MEAN CORPUSCULAR HEMOGLOBIN 28 pg (25-34); MEAN CORPUSCULAR HGB CONC 33 g/dL (32-36); MEAN CORPUSCULAR VOLUME 86 fL (80-99); MEAN PLATELET VOLUME 11.6 fL (9.0-12.2); MONOCYTES # (AUTO) 0.8 10^3/uL (0.0-1.0); MONOCYTES % (AUTO) 8 % (0-12); NEUTROPHILS % (AUTO) 88 % (42-75); PLATELET COUNT 258 10^3/uL (130-400); WHITE BLOOD COUNT 10.3 10^3/uL (4.3-11.0)
[2022-07-09 10:43] LABS: ALBUMIN 4.1 GM/DL (3.2-4.5)
[2022-07-09 10:44] LABS: POTASSIUM 3.4 MMOL/L (3.6-5.0)
[2022-07-09 10:45] LABS: CALCIUM 10.4 MG/DL (8.5-10.1)
[2022-07-09 10:48] LABS: BILIRUBIN,TOTAL 0.5 MG/DL (0.1-1.0)
[2022-07-09 10:50] LABS: CREATININE SERUM 1.69 MG/DL (0.60-1.30); INR 0.9 (0.8-1.4)
[2022-07-09 10:53] LABS: MAGNESIUM 1.9 MG/DL (1.6-2.4)
[2022-07-09 11:00] LABS: BAND NEUTROPHILS 0 %; BASOPHILS % (MANUAL) 0 %; EOSINOPHILS % (MANUAL) 0 %; LYMPHOCYTES % (MANUAL) 3 %; MONOCYTES % (MANUAL) 7 %; NEUTROPHILS % (MANUAL) 90 %; RBC MORPH NORMAL
--- NOTE | 2022-07-09 11:06 | Diagnostic Imaging Report ---
INDICATION: Altered mental status. COMPARISON: 12/14/2021 chest x-ray. FINDINGS: There are increased interstitial markings bilaterally, most prominently in the lung bases, right worse than left. There is also some atelectasis in the right lung base today. The heart is mildly enlarged. No pneumothorax. I could not exclude a small right basilar pleural effusion. IMPRESSION: Increasing bibasilar infiltrates with a probable small right basilar pleural effusion when compared with the previous exam. Dictated by: Dictated on workstation # [id number]
--- NOTE | 2022-07-09 11:13 | Diagnostic Imaging Report ---
PROCEDURE: CT head without contrast. TECHNIQUE: Multiple contiguous axial images were obtained through the brain without the use of intravenous contrast. Auto Exposure Controls were utilized during the CT exam to meet ALARA standards for radiation dose reduction. INDICATION: Altered mental status. COMPARISON: 03/08/2022. FINDINGS: Since the previous exam, there has been interval development of a large acute intraparenchymal hematoma within the anterior left frontal lobe. It measures approximately 4 x 4.8 x 5.5 cm. Note is also made of intraventricular extension with blood products seen in the occipital horns of the bilateral lateral ventricles. There is also moderate associated surrounding edema with mass effect and midline shift. Midline shift measures approximately 4 mm. There is also significant compression of the anterior margins of the left lateral ventricle. Ventricles and cortical sulci are otherwise moderately diffusely prominent consistent with age-related parenchymal volume loss. There are also scattered and confluent areas of decreased attenuation within the periventricular and subcortical deep white matter consistent with chronic small vessel ischemic changes. Bony calvarium is intact. Paranasal sinuses and mastoid air cells are clear. IMPRESSION: 1. Interval development of large acute intraparenchymal hematoma within the anterior left frontal lobe with intraventricular extension. 2. Moderate surrounding edema with mass effect and associated left to right midline shift. 3. Background age-related parenchymal volume loss and chronic small vessel ischemic changes in the deep white matter. Results were discussed with Dr. De Los Santos by Dr. Kerns at 1100 hours on 07/09/2022. Dictated by: Dictated on workstation # [id number]
[2022-07-09 12:20] VITALS: BP 169/83
== END 2022-07-09 12:22 | disposition short-term general hospital (02) ==
LOC: EDUNIT# 10:12 → ER 10:14
DX: I61.8 Other nontraumatic intracerebral hemorrhage (principal); I10 Essential (primary) hypertension; I25.10 Atherosclerotic heart disease of native coronary artery without angina pectoris; Z79.02 Long term (current) use of antithrombotics/antiplatelets
CPT/HCPCS: 36415; 70450; 71045; 80053; 83690; 83735; 83880; 84484; 85007; 85027; 85610; 85730; 86141; 93005; 93041